=== PATIENT | female | born 1945 | race Two or more races ===

== ENCOUNTER 2018-11-20 06:07 | Inpatient (IN) | payer MEDICARE, OTHER ==
[~2018-11-20] VITALS: Ht 165.1 cm; Wt 75.4 kg
[2018-11-20] MEDS ORDERED: ANAS1TAB PO (06:46)
[2018-11-20] MEDS ORDERED: ESCITALOPRAM OX10 MG PO (06:46)
[2018-11-20] MEDS ORDERED: ARIP2TAB35 PO (06:46)
[2018-11-20] MEDS ORDERED: OLAN5TAB9 PO (06:46)
[2018-11-20] MEDS ORDERED: TRAZ-120 PO (06:46)
[2018-11-20] MEDS ORDERED: LAMO200T3 PO (06:46)
[2018-11-20] MEDS ORDERED: METO50TA29 PO (06:46)
[2018-11-20] MEDS ORDERED: LEVE500T56 PO (06:46)
--- NOTE | 2018-11-20 08:20 | NUR ---
Admission Note with Justification for Admission to [facility] Patient admitted to [facility] for protective oversight for emergency stabilization of acute psychiatric crisis. Pt admitted from: Hospital ER/Home Mode of arrival: EMS Accompanied By: Secure Transport Precipitating behaviors that initiated intake and admission: Hallucinating, delusions. Description of failure of out patient attempts at stabilization in previous setting list behavior and medication trials: Behaviors and assessment findings upon admission: Recieved Versed in ambulance. Pt drowsy and very happy. Plan: Admit for protective oversight for adjustment and stabilization of medications, behaviors and mood. Intense treatment regimen including groups, medication adjustments, therapy, consistent regimen for ADL's, self care, and sleep hygiene. Daily monitoring by Inpatient staff, Psychiatry, and Medical Physician.
[2018-11-20 08:57] VITALS: BP 115/60
[2018-11-20] MEDS: NICOTINE 14MG PATCH. TD SCH (11:00)
[2018-11-20] MEDS ORDERED: METHYL SALICYLATE/MENTHOL TOPICAL OINTMENT 57GM TUBE. TP PRN (11:15)
[2018-11-20] MEDS ORDERED: MAG HYDROX/AL HYDROX/SIMETH 30 ML ORAL.SUSP PO PRN (11:15)
--- NOTE | 2018-11-20 13:40 | NUR ---
PSYCHOSOCIAL ASSESSMENT ADMISSION DATE: 11/20/18 CONTACT INFORMATION: DPOA/Guardian Contact Name: Sabina Palumbo Contact Address: [facility] Contact Phone #: [phone] ETHNIC ORIGIN: REASONS FOR ADMISSION: Delusions Hallucinations Poor impulse control Sig. Change Sleep ADDITIONAL ADMISSION COMMENTS: According to the intake, pt cannot sit still/restless, has major cognitive decline, visual and auditory hallucinations, nervous movements, speaks to who is not present REASON FOR ADMISSION IN PATIENT/FAMILY'S OWN WORDS: Pt has had exhibited a decrease in cognition since moved to an [place]. PATIENT/FAMILY EXPECTATIONS FOR ADMISSION: Medication and behavioral management LIVING SITUATION: Patient lives with: [facility] Other living arrangements: currently at home but on facility waiting list Contact Name: [facility] Contact Address: [address] [place] [address] Contact Phone #: Contact Fax #: FAMILY RELATIONS: Marital Status: # of Marriages: 2 # of Children: 1 [facility] Family Support: Cooperative Involved in DC Planning Additional Comments r/t Family: Pt was first at the age of 17 to her of 3 years. The 2 , with no children, due to her cheating. Pt after a couple years met and her current Maxim Palumbo and had 1 daughter Sabina. Pt and her have been for 47 years. SIGNIFICANT PSYCHIATRIC/MEDICAL HISTORY: Psychiatric/Treatment History: This is pt first inpt psych stay at [facility]. According to pt dtr, she has not had any previous psych stays. Pt did however, see a neurologist in [place] roughly 5 months ago and was dx NCD, moderate. Pertinent Family History: Pt Father was believe to have Parkinson's but was not dx (e.g. he had horrible shakes and eventually poor memory trouble). Pt mother was dx with Dementia. Otherwise, the rest of the family suffered from physical ailments. HISTORICAL DATA: Childhood Environment: [place] Supportive Childhood Environment Additional Comments: According to pt dtr, pt grew up in a loving household. Pt dtr reports that her grandparents were fantastic, poor but hard working people. Pt had 1 sister who was 5 years older and last year from breast cancer. Pt dtr felt that sibling rivalry was very well felt with them to the point where there seemed to be some underlying resentment, even if they did talk to her sister on a daily basis at almost 3x a day. 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 service: N Spiritism background: Buddhist Sexual orientation: Heterosexual Educational Level: High School Diploma; graduated 12th grade Past/Present Interests/Hobbies: "to be honest, I'm not sure if my Mom has any" Financial support/resources: Skilled Nursing/Pension Social Security Monthly income: Person handling finances: Pt dtr is financial and medical DPOA Do you have a history of legal problems: N Cultural considerations: None SOCIAL RELATIONSHIPS-CURRENT/PAST: Psychiatrist: None PCP: Dr. German Casanova Counselor/Therapist: None Veterans' Administration: None Support Group: None Toolsmith/Assistant Professor Of English: None Other relationships: None STRENGTHS & WEAKNESSES: Patient's strengths: Good family support Approachable Other patient strengths: Patient's weaknesses: Impulsive Other Other patient weaknesses: Poor relationship with spouse PRELIMINARY PLAN OF TREATMENT: Preliminary plan: Dec. Hallucination/Delus Promote Coping Skill Medication Stabilization Monitor Med Effects Other preliminary treatment comments: DISCHARGE PLANNING: Discharge planning/disposition: Other Additional discharge needs identified: Pt is on the waiting list at [facility]. ADDITIONAL INFORMATION: Other Pertinent Data: SW completed pt PSA with dtr/DPOA Gypsy. Pt dtr informed SW that it would probably be better if pt communication with her would be non-existent. Pt tends to be a trigger for pt. Pt has a long hx of mental health stays and has formed a weird co-dependency. Pt has a dx of Schizoaffective D/O and Bipolar D/O; pt spent some 2 years at [facility] and other episodes of being in and out of wards. Although the couple has stayed , pt feels that her mother has resentment towards pt . Pt dtr reports that pt was doing perfectly fine in September, as in fully functioning (e.g. driving, cooking, cleaning). Pt dtr mentioned that it has been a long time since pt has been happy and hopes that this stay will be able to even her out as much as possible with a transfer to [facility] once she is stable.
[2018-11-20 14:59] LABS: THYROID STIM HORMONE (TSH) 2.093 uIU/mL (0.358-3.740)
--- NOTE | 2018-11-20 15:53 | RAD ---
EXAM: CT Head without IV contrast CLINICAL HISTORY: Mental status change COMPARISON: None. TECHNIQUE: Routine CT of the head without contrast. Soft tissues and bone windows were reviewed. PQRS compliance statement - One or more of the following individualized dose reduction techniques were utilized for this study: 1. Automated exposure control 2. Adjustment of the mA and/or kV according to patient size 3. Use of iterative reconstruction technique FINDINGS: Within the limitations of streak artifact, particularly in the posterior fossa: Low-attenuation is seen within the bilateral thalami as follows the left caudate, nonspecific but may be sequela of hypoxic ischemic change, subacute or chronic. MRI would provide additional details as clinically indicated. There is no evidence of hemorrhage, mass or extra-axial fluid collection. Diffuse subcortical, periventricular deep white matter hypoattenuation may be seen with chronic small vessel disease. There is no mass effect or shift of the intracranial structures. The ventricles, basilar cisterns and cortical sulci are normal in size and configuration for the patients stated age. The cerebellum and brainstem are unremarkable. The calvarium demonstrates no evidence of fracture or focal lesion. Patchy opacification of the sphenoid sinus is likely sinusitis. Mastoid air cells are clear. Vascular calcifications are seen. The visualized portions of the orbits are normal. IMPRESSION: 1. Low-attenuation is seen within the bilateral thalami as follows the left caudate, nonspecific but may be sequela of hypoxic ischemic change, subacute or chronic. MRI would provide additional details as clinically indicated. Compression was discussed with patient's nurse Thi at 3:48 PM 11/20/2018. Electronically signed by: Kyle Carlson MD (11/20/2018 3:50 PM) [facility]
[2018-11-20 15:54] VITALS: BP 120/75
--- NOTE | 2018-11-20 18:33 | NUR ---
Pt up for lunch. In pleasant spirits. After lunch pt became agitated and resistive. Pt assisted to bed. took short nap. Pt up for supper. In pleasant spirits. Dr Hernandez here to see pt. New order for Mirapex TID. Dtr called today. Stated pt had hx of grand mal seizures and pt was seen at the [facility] for eval. Dtr stated they never found a cause but was placed on antiseizure meds. Pt has not had a recent seizure. Pt also sees a Neurologist in [place]. Was dx with early dementia and Parkinson's When pt was started on sinemet and exelon, pt displayed sign of psychosis. Meds were dcd. Unable to find a recent CT head. Obtained. Abn results called to dr Solis and order to consult Dr Hernandez.
--- NOTE | 2018-11-20 19:31 | EKG ---
[address] [address] Test Date: 2018-11-20 Test Time: 16:24:33 Pat Name: AGUSTO TOSCANO Department: Room: [address] [place] [address] Gender: F Statistician Applied: : 1945 Requested By: JOE MILLARD Order Number: [id number] Reading MD: Myles Xavier Measurements Intervals Empire Rate: 83 P: SC: QRS: -67 QRSD: 132 T: -6 QT: 412 QTc: 485 Interpretive Statements SINUS RHYTHM ATRIAL PREMATURE COMPLEXES ABNORMAL LEFT AXIS DEVIATION LEFT ANTERIOR FASCICULAR BLOCK RIGHT BUNDLE BRANCH BLOCK BIFASCICULAR BLOCK ABNORMAL ECG RI6.02 No previous ECG available for comparison Electronically Signed On 12-07-2018 14:34:06 CDT by Myles Xavier
--- NOTE | 2018-11-20 21:00 | NUR ---
Patient is in her room on assumption of care. Pleasant demeanor. Calm, cooperative and compliant with medications and assessments. No agitation. No delusions or hallucinations noted. Denies pain, denies SI/HI.
[2018-11-20 21:19] LABS: THYROXINE 6.3 ug/dL (4.5-12.0)
[2018-11-20] MEDS: ARIPiprazole 2 MG TABLET PO SCH (21:54)
[2018-11-20] MEDS: traZODone 50 MG TABLET. PO SCH (21:54)
[2018-11-20] MEDS: PRAMIPEXOLE 0.5 MG TABLET. PO SCH (21:54)
[2018-11-20] MEDS: levETIRAcetam 500 MG TABLET PO SCH (21:55)
[2018-11-20] MEDS: lamoTRIgine 100 MG TABLET. PO SCH (21:55)
[2018-11-20] MEDS: OLANZapine 5 MG TABLET PO SCH (21:57)
--- NOTE | 2018-11-20 22:05 | PDOC ---
Exam Note: Otto Note: Please also refer to the separate dictated note~for this date of service dictated separately. Discussed the patient with Nursing staff reviewed the chart.~Reviewed interim history and current functioning. Reviewed vital signs,~Labs/ Radiology~and current medications noted below. Continue current treatment with the changes noted in the dictated addendum note Assessment: Vital Signs/I&O: Vital Signs Date Time Temp Pulse Resp B/P (MAP) Pulse Ox O2 Delivery O2 Flow Rate FiO2 11/20/18 15:54 97.2 112 20 120/75 (90) 96 11/20/18 08:57 Room Air Labs: Laboratory Tests Test 11/20/18 11:20 Magnesium Level 1.9 mg/dL (1.8-2.4) Iron Level 28 ug/dL (50-170) L Total Iron Binding Capacity 241 ug/dL (250-450) L Iron Saturation 12 % (15-34) L Triglycerides Level 118 mg/dL (0-150) Cholesterol Level 204 mg/dL (0-200) H LDL Cholesterol, Calculated 151 mg/dL (0-100) H VLDL Cholesterol, Calculated 23 mg/dL (0-40) Non-HDL Cholesterol Calculated 174 mg/dL (0-129) H HDL Cholesterol 30 mg/dL (40-60) L Cholesterol/HDL Ratio 6.0 25-Hydroxy Vitamin D Total 21.6 ng/mL (30-100) L Thyroid Stimulating Hormone (TSH) 2.093 uIU/mL (0.358-3.740) Thyroxine (T4) 6.3 ug/dL (4.5-12.0) Total Triiodothyronine (TT3) 105 ng/dL (71-180) Treponema pallidum Antibody Nonreactive (Nonreactive) Current Medications: Meds: Current Medications Medications (Trade) Dose Ordered Sig/Lidia Route PRN Reason Start Time Stop Time Status Last Admin Dose Admin Aripiprazole (Abilify) 2 mg HS PO 11/20/18 21:00 11/20/18 21:55 Levetiracetam (Keppra) 500 mg BID PO 11/20/18 21:00 11/20/18 21:55 Olanzapine (ZyPREXA) 5 mg HS PO 11/20/18 21:00 11/20/18 21:57 Trazodone HCl (Desyrel) 50 mg HS PO 11/20/18 21:00 11/20/18 21:55 Lamotrigine (LaMICtal) 200 mg BID PO 11/20/18 21:00 11/20/18 21:55 Nicotine (Nicoderm Cq 14mg) 1 patch DAILY TD 11/20/18 11:00 11/20/18 13:07 Pramipexole Dihydrochloride (miraPEX) 0.5 mg [id number] PO 11/20/18 21:00 11/20/18 21:55 I have reviewed the current psychotropics carefully including drug interactions. Risk benefit ratio favors no change other than as noted in my dictated progress note. 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
[2018-11-21 01:07] LABS: HEMOGLOBIN A1C 5.6 % (4.8-5.6)
--- NOTE | 2018-11-21 03:37 | NUR ---
Patient attempted to get out of bed on her own to use the bathroom, and slid down to the floor, where she remained sitting. Staff assisted her up and into wheelchair. She began to yell that she could do it herself but made no attempt to get up. Staff was able to get her up and into wheelchair. She denies injury and pain, and no evidence of injury was noted. Wheeled into bathroom, where staff tried to assist her in standing and pivoting from the chair to the toilet. She became angry and started yelling that she could do it herself, but then would apologize. She appeared to be very frustrated. Once she was wheeled back to the bed, she was encouraged to take her time and pull herself up to a standing position. She was cooperative and was able to transfer herself from wheelchair to bed with moderate encouragement and assistance.
[2018-11-21 05:59] VITALS: BP 114/70
[2018-11-21] MEDS: lamoTRIgine 100 MG TABLET. PO SCH ×2 (07:35→20:09)
[2018-11-21] MEDS: PRAMIPEXOLE 0.5 MG TABLET. PO SCH ×3 (07:35→20:09)
[2018-11-21] MEDS: NICOTINE 14MG PATCH. TD SCH (07:35)
[2018-11-21] MEDS: levETIRAcetam 500 MG TABLET PO SCH ×2 (07:35→20:09)
[2018-11-21] MEDS: ANASTROZOLE 1 MG TABLET PO SCH (07:42)
[2018-11-21] MEDS: CITALOPRAM 20 MG TABLET. PO SCH (07:44)
[2018-11-21] MEDS: METOPROLOL SUCC 24HR ER 50 MG TAB.ER.24H. PO SCH (07:46)
[2018-11-21] MEDS: CHOLECALCIFEROL (VITAMIN D3) 50,000 UNIT CAPSULE PO SCH (13:00)
--- NOTE | 2018-11-21 13:53 | CONS ---
DATE OF CONSULTATION: 11/20/2018 NEUROLOGICAL CONSULTATION REFERRING PHYSICIAN: Dr. aDy. REASON FOR CONSULTATION: To manage Parkinson disease. HISTORY OF PRESENT ILLNESS: This is a 73-year-old, right-handed, female who was admitted today after she presented with chief complaints of agitation, confusion, difficulty sleeping, and anxiety. The patient probably has some kind of dementia; however, she is not a perfect historian. Neuro consult was requested because the patient has had history of Parkinson disease. She was evaluated a neurologist in [place] who started her on carbidopa/levodopa, but because of anaphylactic reaction and possible psychosis, the medicine was discontinued. Currently, the patient admitted to having tremor of the extremities and tendency to fall. She denies headaches, visual disturbances, nausea, vomiting, chest pain, shortness of breath or palpitation, dysarthria, dysphagia, chest pain, or shortness of breath. PAST MEDICAL HISTORY: Significant for COPD, seizure disorder probably due to subdural hematoma, hypertension, arthritis, and cancer of the areola of the left breast. PAST SURGICAL HISTORY: Significant for left breast lumpectomy, abdomen surgery, , and cholecystectomy. SOCIAL HISTORY: The patient is a smoker. She denies alcohol drinking or illicit drug use. FAMILY HISTORY: Not obtainable. CURRENT HOME MEDICATIONS: Anastrozole 1 mg daily, Abilify 2 mg daily, escitalopram 10 mg daily, lamotrigine 200 mg b.i.d. daily, levetiracetam or Keppra 500 mg twice daily, metoprolol XL 50 mg daily, and trazodone 50 mg at bedtime. ALLERGIES: CARBIDOPA/LEVODOPA AND RIVASTIGMINE. REVIEW OF SYSTEMS: A 10-point review of system was performed as mentioned above in history of present illness. PHYSICAL EXAMINATION: GENERAL: Well-developed, well-nourished female, not in acute distress. She weighs 78 kilos. VITAL SIGNS: Blood pressure 120/75, respiratory rate 20, pulse is 112 and regular, oxygen saturation 96% on room air. HEENT: Normocephalic, atraumatic, otherwise unremarkable. NECK: Supple. Negative for carotid bruit, lymphadenopathy, or thyromegaly. LUNGS: Clear to A and P. CARDIOVASCULAR: Regular rhythm, normal S1 and S2. ABDOMEN: Soft. Bowel sounds positive. EXTREMITIES: Negative for cyanosis, clubbing, or edema. NEUROLOGICAL: Mental Status: The patient is alert, but disoriented to date and place. Speech is fluent. There is no language dysfunction. The patient recalls 0/3 after 1 and 3 minutes. Judgment and abstract thinking are poor. The patient denies hallucination or delusion. Cranial Nerves: Visual schaffer are full. The pupils are reactive to light and accommodation. The extraocular movements are intact. There is no nystagmus. There is no facial motor or sensory deficit. Hearing is intact bilaterally. The palates elevated symmetrically. Sternocleidomastoid muscles are powerful bilaterally. The patient shrugs her shoulders symmetrically, protrudes her tongue in the midline without fasciculation or atrophy. Motor Examination: No focal muscle bulk was seen. The patient had resting tremor of the upper extremity. The tone is normal. The strength is 5/5 throughout. Sensory examination revealed normal pinprick, light touch, vibratory, and position senses. Deep tendon reflexes were asymmetric and active without pathology responses. Gait: The patient uses a walker for ambulation. The patient had short-step gait. The stance is steady. LABORATORY DATA: Chemistry revealed magnesium 1.9, iron 28, TIBC is low at 241. Triglyceride normal, mild high cholesterol, but abnormal LDL at 151. DIAGNOSTIC DATA: EKG revealed evidence of right and left anterior bundle-branch block. IMPRESSION: 1. History of Parkinson's disease, currently the patient demonstrates resting tremor of the upper extremities with abnormal gait. 2. Multiple medical problems to include hypertension, hyperlipidemia, history of seizure, tobacco use, history of subdural hematoma, chronic obstructive pulmonary disease, and arthritis. 3. Multiple psychiatric problems to include depressions, anxiety, probably history of psychosis, and dementia. RECOMMENDATIONS: 1. We will start the patient on ropinirole 0.5 mg t.i.d. for the parkinsonian tremor. 2. Continue with current medical and psychiatric care. M Komal FERNANDES MD DR: JUAN ALBERTO/raina JOB#: [id number] / [id number]
[2018-11-21 16:04] VITALS: BP 120/72
--- NOTE | 2018-11-21 18:01 | NUR ---
Pt up for meals in [place]. Was tearful at breakfast. Wanted to go back to bed. Staff explained purpose of meals and group participation. Pt irritable in afternoon. Wanted to get car so she could go home. Attempted to redirect. Pt agreed to talk with friend on phone. Pt better after call and participated with physical therapy with encouragement. Pt seen by Dr Hernandez. Dr Solis to see. Consult placed for Dr Rocha for abnormal EKG, LM with answering service. Pt placed on statin for HLPD.
--- NOTE | 2018-11-21 19:11 | NUR ---
Dr Rocha returned call. Will see pt tomorrow.
[2018-11-21] MEDS: OLANZapine 5 MG TABLET PO SCH (20:08)
[2018-11-21] MEDS: ARIPiprazole 2 MG TABLET PO SCH (20:08)
[2018-11-21] MEDS: traZODone 50 MG TABLET. PO SCH (20:08)
[2018-11-21] MEDS: ATORVASTATIN CALCIUM 10 MG TABLET. PO SCH (20:11)
[2018-11-21] MEDS: MIRTAZAPINE 7.5 MG TABLET. PO SCH (20:31)
--- NOTE | 2018-11-21 21:55 | HP ---
ADMIT DATE: 11/20/2018 ADMISSION HISTORY AND EVALUATION This late entry 11/20/2018 covers elements not covered in my initial 11/20/2018. The patient was seen individually evening of 11/20/2018. Discussed the patient with nursing staff, reviewed the chart, previously discussed with Michell Ramirez, receiving coordinator. IDENTIFYING DATA: The patient is a 73-year-old female, referred to us from [facility] by Dr. Casanova, her primary care physician, on account of her significant cognitive decline, restlessness, having visual and auditory hallucinations, increased anxiety, nervous movements, marked insomnia, speaking to her when he is not there, worsening disorientation and confusion. This is within the context of her Parkinson's disease, dementia, epilepsy and history of subdural hematoma. The patient has had marked insomnia. Staff at the facility felt she was disoriented enough to endanger herself, had failed outpatient psychiatric interventions resulting in this referral. CHIEF COMPLAINT: "Maybe I am getting more confused." HISTORY OF PRESENT ILLNESS: The patient has a history of dementia secondary to Parkinson's versus Lewy body, Alzheimer's, vascular. She has been residing at the above facility for some time and was awaiting transition to the assisted living when her cognition, confusion, hallucinations, agitation seemed to worsen. She was sent to the [facility], evaluated there medically, found to be medically stable and then referred to us for inpatient psychiatric stabilization, admitted by Ryne Palumbo, her daughter, who is her power of assistant attorney general. The patient has had some sleep disturbance, appetite disturbance. There is no clear history of bipolar disorder or active suicidal or homicidal ideation. PAST PSYCHIATRIC HISTORY: As above. MEDICAL HISTORY: Positive for Parkinson's disease, arthritis, COPD, seizure disorder, hyperlipidemia, hypertension, history of CA breast, history of subdural hematoma, history of abdominal surgery, left breast lumpectomy, , cholecystectomy. ALLERGIES: CARBIDOPA/LEVODOPA, RIVASTIGMINE. CODE STATUS: She is a full code. Ambulates ad ethel or with walker. CURRENT PSYCHOTROPICS: Zyprexa 5 mg at bedtime, trazodone 50 mg at bedtime, Abilify 2 mg at bedtime, Lexapro 10 mg daily, Lamictal 200 mg b.i.d. FAMILY HISTORY: Noncontributory. SOCIAL HISTORY: No history of alcohol, drug abuse, physical, sexual or elder abuse. She is not known to be a perpetrator. REACTION TO HOSPITALIZATION: The patient accepting of it. ASSETS: Supportive living in supportive family. CT of the head shows low attenuation within bilateral thalami, left caudate nonspecific, but may be sequelae of hypoxic ischemic change, subacute or chronic with the suggestion of considering MRI. We will defer to Dr. Solis/Dr. Hernandez for Neurology consult. There is no evidence of hemorrhage and there was diffuse subcortical periventricular deep white matter hypoattenuation with chronic small vessel ischemic disease, no mass effects. MENTAL STATUS EXAMINATION: The patient was seen individually evening of 11/20/2018. She is oriented to herself. Insight, judgment, recent and remote memory, attention, concentration, fund of knowledge poor, consistent with her diagnosis. She felt the year was 1994. Unaware of the name of the president, short term memory is impaired. Language function intact. IMPRESSION: Major neurocognitive disorder, multifactorial, possibly secondary to Parkinson's versus Lewy body versus vascular with delusion, depression, behavioral disturbance, anxiety disorder, unspecified; impulse control disorder, unspecified. Rest as above. PLAN: Admit to geropsychiatry unit from [facility]. I will see the patient daily individually from a psychiatric standpoint. Medical followup per Dr. Solis. Continue the patient on her current psychotropics, but we will try and avoid using 2 antipsychotics in combination. Neurology consult with Dr. Hernandez for her seizure disorder. We will make further changes in her psychotropics post baseline assessment. MAN Santiago MILLARD MD DR: COURTNEY/raina JOB#: [id number] / [id number]
--- NOTE | 2018-11-21 22:45 | PDOC ---
Exam Note: Otto Note: Please also refer to the separate dictated note~for this date of service dictated separately.~Patient seen individually. Discussed the patient with Nursing staff reviewed the chart.~Reviewed interim history and current functioning. Reviewed vital signs,~Labs/ Radiology~and current medications noted below. Continue current treatment with the changes noted in the dictated addendum note Assessment: Vital Signs/I&O: Vital Signs Date Time Temp Pulse Resp B/P (MAP) Pulse Ox O2 Delivery O2 Flow Rate FiO2 11/21/18 16:04 97.8 80 18 120/72 (88) 98 11/20/18 08:57 Room Air I & O 11/20/18 11/20/18 11/21/18 15:00 23:00 07:00 Intake Total 360 ml 360 ml Balance 360 ml 360 ml Current Medications: Meds: Current Medications Medications (Trade) Dose Ordered Sig/Lidia Route PRN Reason Start Time Stop Time Status Last Admin Dose Admin Anastrozole (Arimidex) 1 mg DAILY PO 11/21/18 09:00 11/21/18 07:46 Metoprolol Succinate (Toprol Xl) 50 mg DAILY PO 11/21/18 09:00 11/21/18 07:46 Citalopram Hydrobromide (CeleXA) 20 mg DAILY PO 11/21/18 09:00 11/21/18 07:46 Vitamin D (Vitamin D3) 50,000 unit WEEKLY PO 11/21/18 13:00 11/21/18 14:48 Atorvastatin Calcium (Lipitor) 10 mg QHS PO 11/21/18 21:00 11/21/18 20:11 Mirtazapine (Remeron) 7.5 mg QHS PO 11/21/18 21:00 11/21/18 20:31 I have reviewed the current psychotropics carefully including drug interactions. Risk benefit ratio favors no change other than as noted in my dictated progress note. 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
[2018-11-22 00:25] VITALS: BP 151/58
--- NOTE | 2018-11-22 01:27 | NUR ---
Nursing note: At 0010 patient bed alarm sounded and when staff went to her room she was found lying on the floor. She had tried to get up to go to the bathroom and climbed over the bed rail causing herself to fall. She was lying on her left side with her head on the floor. Patient was irritable and yelling and cussing at staff to leave her alone while we were attempting to get her vitals. Vitals are as follows: BP 151/58, HR 109, Resp 22, O2 95% ORA.There was no wounds found but patients left ear was red and she complained of her head hurting and throbbing. Dr. Solis was called and ordered a CT of her head.
--- NOTE | 2018-11-22 01:55 | RAD ---
CT HEAD WO CONTRAST Date: 11/22/2018 1:00 AM Clinical Indication: Fall, headache Comparison: 11/20/2018. Technique: 5 mm axial tomographic images were obtained of the head without contrast. These were viewed on brain and bone windows. One or more of the following dose reduction techniques were utilized: Automated exposure control (AEC), Adjustment of mA and/or kV according to patient size, Use of iterative reconstruction technique such as ASiR, CT scan done according to ALARA and image gently/image wisely Findings: Mild generalized cerebral and cerebellar volume loss. Moderate nonspecific periventricular hypoattenuation, most commonly seen with chronic small vessel ischemic disease. Calcified atherosclerosis of the bilateral cavernous and paraclinoid internal carotid arteries and intracranial vertebral arteries. Unchanged of hypoattenuation in the thalami and left caudate. No intra- or extra-axial mass or fluid collection. No acute hemorrhage. The ventricles are normal in size, shape, and morphology. The subarachnoid cisterns are patent. Mild paranasal sinus disease. The visualized portions of the orbits and globes are normal. The mastoid air cells are clear. The scouts topogram shows no lytic lesion or fracture. Impression: No acute hemorrhage. Unchanged hypoattenuation in the thalami and left caudate. Mild cerebral volume loss. Moderate chronic small vessel ischemic disease. Electronically signed by: Ke Bill MD (11/22/2018 1:52 AM) [facility]
--- NOTE | 2018-11-22 04:17 | NUR ---
Nursing note: Spoke to in beginning of shift before medication pass. Let him know what nightshift had reported on her. Mentioned he will follow up today. Patient was compliant in the beginning of the shift. Patient took all medications whole and was talking about the movie that was on in the day room at that time. Patient went to bed shortly after medication pass. Patient then woke up and bed alarm began to go off and around 0010 patient was found on the floor by CNAs in attempt to go to the bathroom. Vitals taken and patient was assessed. Very combative, yelling out, and delusional. Patient was visibly in some pain as well. After patient went to the bathroom, she was put back in bed and voiced she was having some headache and throbbing but did not want to take her PRN Tylenol. Dr Solis was contacted. CT was ordered. Verge completed. burning supervisor made aware. Patient went down for CT around 0100. Afterwards, patient was brought back upstairs and put in bed. Vitals were taken once more. Patient was asked again at this time if she would like some medication for pain but she again said no and fell back to sleep. Addendum: 11/22/18 at 0624 by LITZY LEWIS RN called this AM. Left voicemail informing him we have some updates on patient and to call back when he gets a chance.
[2018-11-22 05:51] VITALS: BP 113/68
[2018-11-22] MEDS: levETIRAcetam 500 MG TABLET PO SCH ×2 (07:34→19:35)
[2018-11-22] MEDS: NICOTINE 14MG PATCH. TD SCH (07:34)
[2018-11-22] MEDS: PRAMIPEXOLE 0.5 MG TABLET. PO SCH ×3 (07:34→19:36)
[2018-11-22] MEDS: CITALOPRAM 20 MG TABLET. PO SCH (07:34)
[2018-11-22] MEDS: lamoTRIgine 100 MG TABLET. PO SCH ×2 (07:34→19:36)
[2018-11-22] MEDS: METOPROLOL SUCC 24HR ER 50 MG TAB.ER.24H. PO SCH (07:35)
[2018-11-22] MEDS: ANASTROZOLE 1 MG TABLET PO SCH (07:56)
--- NOTE | 2018-11-22 09:54 | CONS ---
DATE OF CONSULTATION: 11/21/2018 REASON FOR CONSULTATION: Medical management. HISTORY OF PRESENT ILLNESS: The patient is a 73-year-old female patient, who was admitted to [facility] and with major cognitive decline. The patient has been restless, has visual and auditory hallucination, increased anxiety, nervousness, insomnia, speaking with her when he is not there, disoriented and confused, all this in a background of delirium and was admitted to this facility for inpatient psychiatric stabilization. PAST MEDICAL HISTORY: Significant for Parkinson's disease, COPD, generalized osteoarthritis, epilepsy, hyperlipidemia, hypertension, history of breast cancer and history of subdural hematoma. PAST SURGICAL HISTORY: Significant for left breast lumpectomy, , cholecystectomy. PAST PSYCHIATRIC HISTORY: Significant for dementia with major cognitive decline. ALLERGIES: She is allergic to CARBIDOPA/LEVODOPA as well as EXELON PATCH. MEDICATIONS: She is currently on following medications: She is on anastrozole 1 mg daily, metoprolol succinate 50 mg daily, lamotrigine 200 mg twice a day, levetiracetam 500 mg twice a day, escitalopram oxalate 10 mg once a day, trazodone 50 mg at bedtime, aripiprazole 10 mg at bedtime and olanzapine 5 mg at bedtime. FAMILY HISTORY: Noncontributory. SOCIAL HISTORY: She is and lives with her . She has one daughter who lives in [facility]. She continued to smoke half a pack a day, does not drink alcohol, any recreational drugs. REVIEW OF SYSTEMS: As per history of present illness. PHYSICAL EXAMINATION GENERAL: When I examined her this afternoon, she was sitting comfortably in her chair, eating her breakfast, in no apparent distress. There was no pallor, jaundice, cyanosis or thyromegaly. No jugular venous distention. No limb edema. VITAL SIGNS: Her heart rate was 107, blood pressure 114/70, temperature was 98.1, respiratory rate was 18 and oxygen saturation was 96% on room air. HEAD, EYES, EARS, NOSE AND THROAT: Normocephalic, atraumatic. NECK: Supple. HEART: Showed normal first and second heart sounds. No gallop or murmur. CHEST: Clear to auscultation. No crepitation or rhonchi. ABDOMEN: Distended, soft, nontender. No guarding or rigidity. No organomegaly. All hernial orifice intact. Bowel sounds normal. NEUROLOGIC: She was awake, alert, responding appropriately, although she is somewhat confused and disoriented; however, all cranial nerves intact. EXTREMITIES: She moves extremities without difficulty, although she is mostly wheelchair bound. LABORATORY DATA: Her lab work showed that her white cell count to be 4100, hemoglobin was 15, hematocrit 44, MCV 94 and platelet count 215,000. Serum sodium was 139, potassium 4, chloride 105, bicarbonate 26, anion gap of 8, BUN 13, calcium was 8.7, albumin was 3.7 and total protein was 5.9. Her serum creatinine is down to 0.55 mg/dL, estimated GFR was more than 59 mL per minute. Total bilirubin, AST, ALT, alkaline phosphatase were all within normal limit. Her serum triglycerides 118, total cholesterol was ____, LDL cholesterol 151, VLDL was 23, non-HDL was 174, HDL cholesterol was 30 and the ratio was ____. Her TSH was normal. Total T4 and total T3 are within normal range. Her 25-hydroxy vitamin D is low at 21.6. Her treponema pallidum antibodies were nonreactive. She did have a CT scan of the head, which basically showed the low attenuation seen within the bilateral thalami ____ coated-nucleus nonspecific, but may be sequelae of hypoxic ischemic changes and subacute or chronic. Her EKG showed that she might be in atrial fibrillation with right bundle-branch block. IMPRESSION: In summary, this is a 73-year-old female patient who was transferred from [facility] on account of the major cognitive decline, restlessness, visual and auditory hallucination, increased anxiety, insomnia, speaking with her who is not there. She is disoriented and confused. Medically, she is known to have Parkinson disease, chronic obstructive pulmonary disease, epilepsy, hyperlipidemia, hypertension, history of breast cancer and history of subdural hematoma. Her lab work showed that she has elevated cholesterol. EKG showed that she has probably atrial fibrillation with questionable atrial fibrillation with right bundle-branch block and she has also hyperlipidemia with LDL cholesterol high at 151. She has also vitamin D deficiency. PLAN: My plan is to replenish her vitamin D. Given that she has finding on her CT scan of low attenuation seen within the bilateral thalami and the possibly irregular beat, I would consult the cardiology for evaluation and to decide whether the patient needs to be anticoagulated. Thank you, Dr. Day, for allowing me to participate in the care of this patient. ADITI EASON MD DR: RIVER/raina JOB#: [id number] / [id number]
[2018-11-22 16:09] VITALS: BP 106/64
--- NOTE | 2018-11-22 18:19 | NUR ---
Pt has been up in wc for meals and out to group. Has been pleasantly confused. Compliant with meds and cares thus far.
[2018-11-22] MEDS: traZODone 50 MG TABLET. PO SCH (19:35)
[2018-11-22] MEDS: ATORVASTATIN CALCIUM 10 MG TABLET. PO SCH (19:36)
[2018-11-22] MEDS: MIRTAZAPINE 7.5 MG TABLET. PO SCH (19:36)
--- NOTE | 2018-11-22 22:28 | PDOC ---
Exam Note: Otto Note: Please also refer to the separate dictated note~for this date of service dictated separately.~Patient seen individually. Discussed the patient with Nursing staff reviewed the chart.~Reviewed interim history and current functioning. Reviewed vital signs,~Labs/ Radiology~and current medications noted below. Continue current treatment with the changes noted in the dictated addendum note Assessment: Vital Signs/I&O: Vital Signs Date Time Temp Pulse Resp B/P (MAP) Pulse Ox O2 Delivery O2 Flow Rate FiO2 11/22/18 16:09 98.6 69 18 106/64 (78) 98 11/20/18 08:57 Room Air I & O 11/21/18 11/21/18 11/22/18 15:00 23:00 07:00 Intake Total 840 ml 240 ml 240 ml Balance 840 ml 240 ml 240 ml Current Medications: Meds: Current Medications Medications (Trade) Dose Ordered Sig/Lidia Route PRN Reason Start Time Stop Time Status Last Admin Dose Admin Olanzapine (ZyPREXA ZYDIS) 2.5 mg PRN Q2HR PRN PO PSYCHOSIS 11/22/18 19:45 11/22/18 19:57 I have reviewed the current psychotropics carefully including drug interactions. Risk benefit ratio favors no change other than as noted in my dictated progress note. 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
--- NOTE | 2018-11-22 23:26 | PN ---
DATE: 11/21/2018 PSYCHIATRIC PROGRESS NOTE This late entry, 11/21/2018 covers elements not covered in my initial note. SUBJECTIVE: I met with the patient evening of 11/21/2018. The patient slept 4 hours previous night. EKG shows right bundle branch block. CT head is abnormal, will defer to Dr. Hernandez, Neurology consult. Reviewed her history that when she was brought by ambulance. She was agitated to a point, which she received 4 mg Versed in the ambulance. She has been started on Mirapex for her Parkinson's, history of grand mal seizures. REVIEW OF SYSTEMS: Ambulation impaired, in wheelchair. No CV, , pulmonary, eye system symptoms on review. Reliability poor. MENTAL STATUS EXAM: Oriented to herself. Insight, judgment, recent and remote memory, attention, concentration, fund of knowledge poor, consistent with her diagnoses. IMPRESSION: Major neurocognitive disorder, multifactorial, possibly Lewy body with delusion, depression, behavioral disturbance, major neurocognitive disorder, Alzheimer, vascular with delusion, depression, behavioral disturbance. Rest unchanged from initial note. PLAN: We will start Remeron 7.5 mg at bedtime, stop the Abilify 2 mg at bedtime. Consult Dr. Hernandez, Neurology. Maintain Lamictal, scheduled Zyprexa 5 mg at bedtime, Lexapro 10 mg a day for now. MAN Santiago MILLARD MD DR: COURTNEY/raina JOB#: [id number] / [id number]
--- NOTE | 2018-11-23 04:42 | NUR ---
Nsg Note: Patient was medication compliant. Upon arrival to start of shift, patient was yelling the F word and throwing things around. She was given PRN Zyprexa with her other medications and she has slept throughout the night.
[2018-11-23 05:55] VITALS: BP 146/82
[2018-11-23] MEDS: PRAMIPEXOLE 0.5 MG TABLET. PO SCH ×3 (08:06→19:11)
[2018-11-23] MEDS: levETIRAcetam 500 MG TABLET PO SCH ×2 (08:06→19:12)
[2018-11-23] MEDS: CITALOPRAM 20 MG TABLET. PO SCH (08:07)
[2018-11-23] MEDS: METOPROLOL SUCC 24HR ER 50 MG TAB.ER.24H. PO SCH (08:07)
[2018-11-23] MEDS: ANASTROZOLE 1 MG TABLET PO SCH (08:07)
[2018-11-23] MEDS: lamoTRIgine 100 MG TABLET. PO SCH ×2 (08:08→19:11)
[2018-11-23] MEDS: NICOTINE 14MG PATCH. TD SCH (08:08)
[2018-11-23 15:37] VITALS: BP 107/74
--- NOTE | 2018-11-23 15:47 | NUR ---
Pt calm, compliant with meds and assessment in the morning. Pt became agitated and combative after lunch, cursing and calling staff names.
--- NOTE | 2018-11-23 16:00 | NUR ---
ACTIVITY THERAPY ASSESSMENT Completed based on observation and interview. Pt. was eating a snack in the day room, while sitting in a wheelchair with a staff ensuring her wheelchair stay put, due to safety reasons. Pt. was reportedly restless earlier and resistive with staff's redirection. At this time, Pt. was fidgeting with her snack and was agreeable for IMPLEMENTATION ADVISOR to ask her questions; however, she was not able to give very much information. It appeared that Pt. did better with yes/no this/that questions. With that, Pt. said she liked TV, arts/crafts, said "I love to color." She did not like [employer], not interest in cards, reads "somewhat." At times, Pt. talked towards a peer and addressed them as "Deep." She sat quietly after answering the questions with one or a few words. While on the unit, Pt. has followed along with exercises, attempted to socialize in a smaller group of women, and appears to be in a more pleasant and agreeable manor in the mornings as opposed to the afternoons. There are reports of Pt. having auditory and visual hallucinations and Pt. being restless and trying to get up unassisted. Initial goal aimed to increase engagement and socialization: Pt. will participate in at least five Activity Therapy groups per week.
--- NOTE | 2018-11-23 16:46 | NUR ---
Patient has been provided with Practical Counseling for tobacco cessation. It included a face to face interaction and the following was discussed: Recognizing danger situations, Developing coping skills,Basic cessation information. Will follow for discharge needs and discharge planning.
[2018-11-23] MEDS: traZODone 50 MG TABLET. PO SCH (19:10)
[2018-11-23] MEDS: MIRTAZAPINE 7.5 MG TABLET. PO SCH (19:11)
[2018-11-23] MEDS: ATORVASTATIN CALCIUM 10 MG TABLET. PO SCH (19:11)
--- NOTE | 2018-11-23 20:52 | NUR ---
Nursing note: Assumed care of pt in the day room. She was compliant with meds but not very interactive. When asked how her day had been she stated she was just going to sit there and wait until she could get out of here. She had no c/o pain, no agitation or hallucinations present at this time.
--- NOTE | 2018-11-23 21:48 | PDOC ---
Exam Note: Otto Note: Please also refer to the separate dictated note~for this date of service dictated separately.~Patient seen individually. Discussed the patient with Nursing staff reviewed the chart.~Reviewed interim history and current functioning. Reviewed vital signs,~Labs/ Radiology~and current medications noted below. Continue current treatment with the changes noted in the dictated addendum note Assessment: Vital Signs/I&O: Vital Signs Date Time Temp Pulse Resp B/P (MAP) Pulse Ox O2 Delivery O2 Flow Rate FiO2 11/23/18 15:37 98.3 76 20 107/74 (85) 100 11/20/18 08:57 Room Air I & O 11/22/18 11/22/18 11/23/18 15:00 23:00 07:00 Intake Total 480 ml 120 ml Balance 480 ml 120 ml Current Medications: I have reviewed the current psychotropics carefully including drug interactions. Risk benefit ratio favors no change other than as noted in my dictated progress note. 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
--- NOTE | 2018-11-24 01:22 | PN ---
DATE: 11/22/2018 PSYCHIATRIC PROGRESS NOTE This late entry, 11/22, covers elements not covered in my initial note. SUBJECTIVE: I met with the patient evening of 11/22. The patient slept 6-1/4 hours previous night. Overall, the patient remains confused. She fell out of bed at night. Repeat CT per Dr. Solis showed no acute changes. She gets paranoid, restless, anxious. We will add Zyprexa 2.5 mg q.2 hours p.r.n. psychosis, agitation, max 7.5 mg in 24 hours. REVIEW OF SYSTEMS: Ambulation impaired, in wheelchair. No CV, , pulmonary, eye, ENT system symptoms on review. MENTAL STATUS EXAM: Oriented to herself, situation at times. Speech is coherent, can be rapid, pressured, gets upset if orientation questions asked of her as I did in the evening of 11/22. Abstraction fair, computation impaired, language function intact, attention span short. Mood and affect remain somewhat anxious, labile. LABORATORY DATA: Reviewed. IMPRESSION: Major neurocognitive disorder; Alzheimer, vascular with delusion; depression; behavioral disturbance versus dementia; Lewy body with delusions, behavioral disturbance; status post subdural hematoma. Rest unchanged. PLAN: Continue psychotropics from initial note. Stop Zyprexa 5 mg at bedtime. She remains on Celexa 20 mg a day, Lamictal 200 mg b.i.d. for her seizure disorder, trazodone 50 mg at bedtime, Remeron 7.5 mg at bedtime; Abilify has been stopped. Adjust further as clinically indicated. JOE MILLARD MD DR: COURTNEY/raina JOB#: [id number] / [id number]
[2018-11-24 05:51] VITALS: BP 119/57
[2018-11-24] MEDS: NICOTINE 14MG PATCH. TD SCH (07:29)
[2018-11-24] MEDS: METOPROLOL SUCC 24HR ER 50 MG TAB.ER.24H. PO SCH (07:30)
[2018-11-24] MEDS: PRAMIPEXOLE 0.5 MG TABLET. PO SCH ×3 (07:30→19:17)
[2018-11-24] MEDS: levETIRAcetam 500 MG TABLET PO SCH ×2 (07:31→19:17)
[2018-11-24] MEDS: CITALOPRAM 20 MG TABLET. PO SCH (07:31)
[2018-11-24] MEDS: lamoTRIgine 100 MG TABLET. PO SCH ×2 (07:31→19:17)
[2018-11-24] MEDS: ANASTROZOLE 1 MG TABLET PO SCH (07:33)
--- NOTE | 2018-11-24 12:07 | NUR ---
Pt calm, compliant with meds and assessment in the morning. No behaviors noted so far this shift. Sitting in day room participating in group.
[2018-11-24 15:40] VITALS: BP 112/74
[2018-11-24] MEDS: traZODone 50 MG TABLET. PO SCH (19:17)
[2018-11-24] MEDS: ATORVASTATIN CALCIUM 10 MG TABLET. PO SCH (19:17)
--- NOTE | 2018-11-24 19:40 | NUR ---
Nursing note: Assumed care of pt in the day room. She is delusional and hallucinating. She sees her family and believes she is in her home, continually yelling out for different family. She is frequently tearful in between calling out. She is compliant with meds. No c/o pain.
[2018-11-24] MEDS: MIRTAZAPINE 15 MG TABLET PO SCH (20:03)
--- NOTE | 2018-11-24 21:50 | PDOC ---
Exam Note: Otto Note: Please also refer to the separate dictated note~for this date of service dictated separately.~Patient seen individually. Discussed the patient with Nursing staff reviewed the chart.~Reviewed interim history and current functioning. Reviewed vital signs,~Labs/ Radiology~and current medications noted below. Continue current treatment with the changes noted in the dictated addendum note Assessment: Vital Signs/I&O: Vital Signs Date Time Temp Pulse Resp B/P (MAP) Pulse Ox O2 Delivery O2 Flow Rate FiO2 11/24/18 15:40 97.8 91 20 112/74 (87) 98 11/24/18 05:51 Room Air I & O 11/23/18 11/23/18 11/24/18 15:00 23:00 07:00 Intake Total 600 ml 120 ml Balance 600 ml 120 ml Current Medications: Meds: Current Medications Medications (Trade) Dose Ordered Sig/Lidia Route PRN Reason Start Time Stop Time Status Last Admin Dose Admin Mirtazapine (Remeron) 15 mg QHS PO 11/24/18 21:00 11/24/18 20:03 I have reviewed the current psychotropics carefully including drug interactions. Risk benefit ratio favors no change other than as noted in my dictated progress note. 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
--- NOTE | 2018-11-25 03:13 | NUR ---
Nursing Note Pt yelling, and combative with staff, refuses to get up although states she needs to use the restroom. 2.5 mg zyprexa given.
--- NOTE | 2018-11-25 03:15 | PN ---
DATE: 11/23/2018 PSYCHIATRIC PROGRESS NOTE This late entry 11/23/2018 covers the elements not covered in my initial note. SUBJECTIVE: I met with the patient in the evening of 11/23/2018. For the most part, per nursing report, the patient did "great" in the morning. She slept 7-3/4 hours previous night. In the evening, she was getting more confused, anxious, restless, agitated, combative, cursing and name calling to nursing staff. REVIEW OF SYSTEMS: Ambulation impaired, in wheelchair. Other time, she ambulates with walker. No CV, , pulmonary, eye, ENT system symptoms on review. Reliability poor. MENTAL STATUS EXAM: Oriented to herself. Insight, judgment, recent and remote memory, attention, concentration and fund of knowledge are poor, consistent with her diagnosis mentioned in my initial note. PLAN: Zyprexa 5 mg at bedtime has been stopped. She remains on Celexa 20 mg a day, Lamictal 200 mg b.i.d., Remeron 7.5 mg at bedtime, trazodone 50 mg at bedtime p.r.n. and Zyprexa p.r.n. psychosis, agitation. We may use low dose Seroquel as a mood stabilizer, but I would like to avoid using an atypical, if we can avoid it. We will continue to assess this over the next 24-48 hours. JOE MILLARD MD DR: COURTNEY/raina JOB#: [id number] / [id number]
[2018-11-25 04:49] VITALS: BP 113/73
[2018-11-25] MEDS: METOPROLOL SUCC 24HR ER 50 MG TAB.ER.24H. PO SCH (07:19)
[2018-11-25] MEDS: NICOTINE 14MG PATCH. TD SCH (07:20)
[2018-11-25] MEDS: CITALOPRAM 20 MG TABLET. PO SCH (07:20)
[2018-11-25] MEDS: lamoTRIgine 100 MG TABLET. PO SCH ×2 (07:20→19:38)
[2018-11-25] MEDS: PRAMIPEXOLE 0.5 MG TABLET. PO SCH ×3 (07:20→19:37)
[2018-11-25] MEDS: levETIRAcetam 500 MG TABLET PO SCH ×2 (07:20→19:37)
[2018-11-25] MEDS: ANASTROZOLE 1 MG TABLET PO SCH (07:21)
[2018-11-25 13:28] LABS: BASO % 1 % (0-3); EOS # 0.3 x10^3/uL (0.0-0.7); EOS % 4 % (0-3); HEMATOCRIT 45.7 % (36.0-47.0); HEMOGLOBIN 15.5 g/dL (12.0-15.5); LYMPH # 1.2 x10^3/uL (1.0-4.8); LYMPH % 14 % (24-48); MEAN CORPUSCULAR HEMOGLOBIN 32 pg (25-35); MEAN CORPUSCULAR HGB CONC 34 g/dL (31-37); MEAN CORPUSCULAR VOLUME 95 fL (79-100); MONO # 0.6 x10^3/uL (0.0-1.1); MONO % 7 % (0-9); NEUT # 6.5 x10^3uL (1.8-7.7); NEUT % 75 % (31-73); PLATELET COUNT 436 x10^3/uL (140-400); RED BLOOD COUNT 4.84 x10^6/uL (3.50-5.40); RED CELL DISTRIBUTION WIDTH 13.3 % (11.5-14.5); WHITE BLOOD COUNT 8.7 x10^3/uL (4.0-11.0)
[2018-11-25 13:41] LABS: ALBUMIN/GLOBULIN RATIO 0.7 (1.0-1.7); CALCIUM 9.3 mg/dL (8.5-10.1); CREATININE 0.8 mg/dL (0.6-1.0); GFR 70.1; POTASSIUM 3.4 mmol/L (3.5-5.1); TOTAL BILIRUBIN 0.6 mg/dL (0.2-1.0); TOTAL PROTEIN 7.4 g/dL (6.4-8.2)
--- NOTE | 2018-11-25 14:18 | NUR ---
VIVIANA received an email from pt dtr to give her an update on pt and how she is doing. Pt dtr questioned in the email re: an estimated discharge date in which VIVIANA explained it would potentially be another 2 weeks. VIVIANA has been emailing pt dtr and encouraged her to ask nursing about medications as it is not SW expertise.
[2018-11-25 15:45] VITALS: BP 112/67
[2018-11-25 15:53] LABS: CLARITY,URINE CLEAR; COLOR,URINE AMBER
[2018-11-25 15:54] LABS: BACTERIA,URINE FEW /HPF (0-FEW); BILIRUBIN,URINE NEG (NEG); GLUCOSE,URINE NEG (NEG); HYALINE CASTS, URINE FEW /HPF; NITRITE,URINE NEG (NEG); SQUAMOUS EPITHELIAL CELL,UR OCC /LPF; UROBILINOGEN,URINE 0.2 mg/dL (0.2 mg/dL)
[2018-11-25] MEDS: ATORVASTATIN CALCIUM 10 MG TABLET. PO SCH (19:37)
[2018-11-25] MEDS: MIRTAZAPINE 15 MG TABLET PO SCH (19:37)
[2018-11-25] MEDS: traZODone 50 MG TABLET. PO SCH (19:37)
--- NOTE | 2018-11-25 21:10 | PDOC ---
Exam Note: Otto Note: Please also refer to the separate dictated note~for this date of service dictated separately.~Patient seen individually. Discussed the patient with Nursing staff reviewed the chart.~Reviewed interim history and current functioning. Reviewed vital signs,~Labs/ Radiology~and current medications noted below. Continue current treatment with the changes noted in the dictated addendum note Assessment: Vital Signs/I&O: Vital Signs Date Time Temp Pulse Resp B/P (MAP) Pulse Ox O2 Delivery O2 Flow Rate FiO2 11/25/18 15:45 97.7 68 16 112/67 (82) 97 11/24/18 05:51 Room Air I & O 11/24/18 11/24/18 11/25/18 14:59 22:59 06:59 Intake Total 640 ml 360 ml Balance 640 ml 360 ml Labs: Laboratory Tests Test 11/25/18 12:58 11/25/18 15:00 White Blood Count 8.7 x10^3/uL (4.0-11.0) Red Blood Count 4.84 x10^6/uL (3.50-5.40) Hemoglobin 15.5 g/dL (12.0-15.5) Hematocrit 45.7 % (36.0-47.0) Mean Corpuscular Volume 95 fL (79-100) Mean Corpuscular Hemoglobin 32 pg (25-35) Mean Corpuscular Hemoglobin Concent 34 g/dL (31-37) Red Cell Distribution Width 13.3 % (11.5-14.5) Platelet Count 436 x10^3/uL (140-400) H Neutrophils (%) (Auto) 75 % (31-73) H Lymphocytes (%) (Auto) 14 % (24-48) L Monocytes (%) (Auto) 7 % (0-9) Eosinophils (%) (Auto) 4 % (0-3) H Basophils (%) (Auto) 1 % (0-3) Neutrophils # (Auto) 6.5 x10^3uL (1.8-7.7) Lymphocytes # (Auto) 1.2 x10^3/uL (1.0-4.8) Monocytes # (Auto) 0.6 x10^3/uL (0.0-1.1) Eosinophils # (Auto) 0.3 x10^3/uL (0.0-0.7) Basophils # (Auto) 0.0 x10^3/uL (0.0-0.2) Sodium Level 141 mmol/L (136-145) Potassium Level 3.4 mmol/L (3.5-5.1) L Chloride Level 103 mmol/L (98-107) Carbon Dioxide Level 30 mmol/L (21-32) Anion Gap 8 (6-14) Blood Urea Nitrogen 16 mg/dL (7-20) Creatinine 0.8 mg/dL (0.6-1.0) Estimated GFR (Cockcroft-Gault) 70.1 BUN/Creatinine Ratio 20 (6-20) Glucose Level 123 mg/dL (70-99) H Calcium Level 9.3 mg/dL (8.5-10.1) Total Bilirubin 0.6 mg/dL (0.2-1.0) Aspartate Amino Transferase (AST) 23 U/L (15-37) Alanine Aminotransferase (ALT) 16 U/L (14-59) Alkaline Phosphatase 121 U/L (46-116) H Total Protein 7.4 g/dL (6.4-8.2) Albumin 3.0 g/dL (3.4-5.0) L Albumin/Globulin Ratio 0.7 (1.0-1.7) L Urine Collection Type Unknown Urine Color Mckenna Urine Clarity Clear Urine pH 6.0 Urine Specific [place] 1.025 Urine Protein Trace (NEG-TRACE) Urine Glucose (UA) Neg mg/dL (NEG) Urine Ketones (Stick) Trace mg/dL (NEG) Urine Blood Neg (NEG) Urine Nitrite Neg (NEG) Urine Bilirubin Neg (NEG) Urine Urobilinogen Dipstick 0.2 mg/dL (0.2 mg/dL) Urine Leukocyte Esterase Neg (NEG) Urine RBC 1-2 /HPF (0-2) Urine WBC 1-4 /HPF (0-4) Urine Squamous Epithelial Cells Occ /LPF Urine Bacteria Few /HPF (0-FEW) Urine Hyaline Casts Few /HPF Urine Mucus Marked /LPF Current Medications: I have reviewed the current psychotropics carefully including drug interactions. Risk benefit ratio favors no change other than as noted in my dictated progress note. 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
--- NOTE | 2018-11-25 22:00 | NUR ---
Patient in the day room on assumption of care. She is disorganized, confused, tearful. She was compliant with medications and assessments. No agitation, but she was continually trying to get up out of her wheelchair, pushing out the table. She slowly slid out wheelchair, was witnessed by staff. No c/o or s/s pain. No injury noted. Assisted back into wheelchair by 3 staff, she was cooperative with transfer. Given PRN Zydis 2.5mg at 2200, assisted into bed at that time.
--- NOTE | 2018-11-26 02:00 | PN ---
DATE: 11/24/2018 PSYCHIATRIC PROGRESS NOTE This late entry 11/24/2018, covers elements not covered in my initial note. SUBJECTIVE: Met with the patient evening of 11/24/2018. The patient slept 5-1/4 hours previous night. Per nursing report, she is doing "pretty good." She has not been aggressive, remains confused. There is a question about Mirapex or Requip added for Parkinson's. I will defer to Dr. Hernandez. REVIEW OF SYSTEMS: Ambulation impaired, in wheelchair. No CV, , pulmonary, eye, ENT system symptoms on review. Reliability poor. MENTAL STATUS EXAM: Oriented to herself. Insight, judgment, recent and remote memory, attention, concentration, fund of knowledge poor consistent with her diagnosis mentioned in my initial note. PLAN: No change from initial note. MAN Santiago MILLARD MD DR: COURTNEY/raina JOB#: [id number] / [id number]
--- NOTE | 2018-11-26 06:37 | NUR ---
Patient verbally and physically aggressive and combative with AM care. Continuously removing her shirt, swatting at and trying to pinch staff, yelling and swearing loudly.Brought into day room, where she continued to be agitated and difficult to redirect. Medicated with PRN Zyprexa Zarieis at 0630.
[2018-11-26] MEDS: lamoTRIgine 100 MG TABLET. PO SCH ×2 (08:29→19:16)
[2018-11-26] MEDS: PRAMIPEXOLE 0.5 MG TABLET. PO SCH ×3 (08:29→19:16)
[2018-11-26] MEDS: levETIRAcetam 500 MG TABLET PO SCH ×2 (08:29→19:16)
[2018-11-26] MEDS: METOPROLOL SUCC 24HR ER 50 MG TAB.ER.24H. PO SCH (08:30)
[2018-11-26] MEDS: NICOTINE 14MG PATCH. TD SCH (08:30)
[2018-11-26] MEDS: SERTRALINE 50 MG TABLET. PO SCH (08:31)
[2018-11-26] MEDS: ANASTROZOLE 1 MG TABLET PO SCH (08:32)
--- NOTE | 2018-11-26 10:37 | NUR ---
WEEKLY ACTIVITY THERAPY NOTE Date of Admission: 11/20/2018 Date of AT Assessment:11/23/18 Goal aimed:to increase engagement and socialization Initial Goal:Pt. will participate in at least five Activity Therapy groups per week. Weekly progress towards goal: in effect moving forward Group participation level: minimal Weekly highlights: full participation in [employer] democr[employer]- doing cheers and playing paper football Behaviors observed: sitting away from group, delayed moves at time, confused and restless at times, coloring, sleeping all Friday Plan: no change to goal Beneficial adaptations: direct prompting, small groups, more cooperative in the morning
--- NOTE | 2018-11-26 10:37 | NUR ---
WEEKLY NOTE: Pt is eating and sleeping okay. Pt tends to be more delusional during the evenings and somewhat combative. Pt will start Seroquel and has been on Celexa and Lamictal. Pt is accepted to [facility] in [place]. Pt is medication compliant and will need at least two more weeks.
--- NOTE | 2018-11-26 12:17 | NUR ---
Patient was in the dining room during morning rounding. When the nurse went to give patient her medications, she seemed a little confused. Was reminded to take them and swallow. When asked, she said she slept well. No agitation noted, patient denies pain, will continue to monitor.
[2018-11-26] MEDS: QUEtiapine 25 MG TABLET. PO SCH (13:57)
[2018-11-26 15:51] VITALS: BP 97/65
--- NOTE | 2018-11-26 18:09 | NUR ---
Patient was leaving the dining room when she lost her balance and fell backwards hitting her head on the wall near the south nurse's station. CT of the head was ordered. Vitals were taken: BP 152/87, IL-88, SPO2- 95%. Spoke to patient's daughter as well as DPOA, physician notified. Patient is alert, is frustrated with falling and is tearful. Currently heading to imaging now. Will continue to monitor.
--- NOTE | 2018-11-26 18:43 | RAD ---
Exam: CT head INDICATION: Fall TECHNIQUE: Sequential axial images through the head were obtained without the administration of IV contrast. Comparisons: 11/22/2018 FINDINGS: No focal parenchymal lesion or hemorrhage is identified. There is no midline shift or sulcal effacement. Jackson patchy hypodensities within the periventricular and subcortical white matter which is similar when compared to the prior exam. No acute vascular territory infarction is identified, however evaluation is somewhat limited given pre-existing ischemic change. The ventricular system is within normal limits without compression hydrocephalus. The basal cisterns are well maintained. Frothy secretions within the right sphenoid sinus. No acute fractures. IMPRESSION: 1. Chronic ischemic changes without acute intracranial abnormality. 2. Sinus disease as described above. Exposure: One or more of the following in the visualized dose reduction techniques were utilized for this examination: 1. Automated exposure control 2. Adjustment of the MA and/or KV according to patient size Use of iterative of reconstructive technique Electronically signed by: Shu Jackson MD (11/26/2018 6:40 PM) [facility]
--- NOTE | 2018-11-26 19:09 | NUR ---
Dr. Solis here for rounds. Dr. Day just finished rounds. New order for pt to be 1:1 for 24 hour for safety r/t fall.
[2018-11-26] MEDS: traZODone 50 MG TABLET. PO SCH (19:16)
[2018-11-26] MEDS: ATORVASTATIN CALCIUM 10 MG TABLET. PO SCH (19:16)
[2018-11-26] MEDS: MIRTAZAPINE 15 MG TABLET PO SCH (19:16)
--- NOTE | 2018-11-26 21:00 | NUR ---
Patient in the day room on assumption of care, 1:1 for safety r/t earlier fall. She is confused, disorganized, agitated on redirection. PRN Zyprexa Zydis 2.5mg at 1945. Compliant with assessments and took medications crushed in vanilla pudding. She denies pain or discomfort, no hallucinations or delusions noted on this shift. During PM care and transfer to bed, patient was cooperative and compliant with staff assistance.
--- NOTE | 2018-11-26 22:02 | PDOC ---
Exam Note: Otto Note: Please also refer to the separate dictated note~for this date of service dictated separately.~Patient seen individually. Discussed the patient with Nursing staff reviewed the chart.~Reviewed interim history and current functioning. Reviewed vital signs,~Labs/ Radiology~and current medications noted below. Continue current treatment with the changes noted in the dictated addendum note Assessment: Vital Signs/I&O: Vital Signs Date Time Temp Pulse Resp B/P (MAP) Pulse Ox O2 Delivery O2 Flow Rate FiO2 11/26/18 15:51 97.6 71 19 97/65 (76) 93 Room Air I & O 11/25/18 11/25/18 11/26/18 14:59 22:59 06:59 Intake Total 300 ml 0 ml 240 ml Balance 300 ml 0 ml 240 ml Current Medications: Meds: Current Medications Medications (Trade) Dose Ordered Sig/Lidia Route PRN Reason Start Time Stop Time Status Last Admin Dose Admin Sertraline HCl (Zoloft) 50 mg DAILY PO 11/26/18 09:00 11/26/18 08:32 Quetiapine Fumarate (SEROquel) 12.5 mg 1400 PO 11/26/18 14:00 11/26/18 13:57 I have reviewed the current psychotropics carefully including drug interactions. Risk benefit ratio favors no change other than as noted in my dictated progress note. 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
[2018-11-27 06:00] VITALS: BP 104/64
[2018-11-27] MEDS: levETIRAcetam 500 MG TABLET PO SCH ×2 (07:58→20:03)
[2018-11-27] MEDS: lamoTRIgine 100 MG TABLET. PO SCH ×2 (07:58→20:04)
[2018-11-27] MEDS: METOPROLOL SUCC 24HR ER 50 MG TAB.ER.24H. PO SCH (07:59)
[2018-11-27] MEDS: PRAMIPEXOLE 0.5 MG TABLET. PO SCH ×3 (07:59→20:03)
[2018-11-27] MEDS: NICOTINE 14MG PATCH. TD SCH (08:00)
[2018-11-27] MEDS: SERTRALINE 50 MG TABLET. PO SCH (08:00)
[2018-11-27] MEDS: ANASTROZOLE 1 MG TABLET PO SCH (08:23)
--- NOTE | 2018-11-27 12:25 | NUR ---
Patient slept in some this morning, took medications, allowed for morning assessment. Patient did better with her confusion this morning, was able to swallow her medications whole. No agitation noted, will continue to monitor.
[2018-11-27] MEDS: QUEtiapine 25 MG TABLET. PO SCH (13:13)
--- NOTE | 2018-11-27 13:15 | NUR ---
SW met with pt at his request as he wanted to give information as "further insight into pt situation". Pt appeared to be manic to the point that SW was not able to get a word in edgewise; speech was somewhat pressured. Pt discussed his mental health history/diagnosis (Schizoaffective D/O) and how he believes that it may have caused trouble; however, his greatest concern is that pt believes that he is cheating with someone else and he reports that it was not the case. Pt feels that pt was a major bully and because of the stress he was not able to stay with her and moved to [facility]. Pt mentioned that he feels that pt has a lot of animosity towards him stating "the second she quit being intimate with me, I knew something was wrong" but he will never divorce her and will continue to hold onto her as long as possible. "I've been with her since 1970 and have no intentions of going anywhere unless the good Lord says otherwise".
[2018-11-27 16:58] VITALS: BP 94/60
--- NOTE | 2018-11-27 18:44 | NUR ---
Patient got frustrated with staff was yelling, shouting, trying to scratch staff members. PRN ritchie given @1837. Patient is still in the dayroom. Will continue to monitor.
[2018-11-27] MEDS: MIRTAZAPINE 15 MG TABLET PO SCH (20:03)
[2018-11-27] MEDS: ATORVASTATIN CALCIUM 10 MG TABLET. PO SCH (20:03)
[2018-11-27] MEDS: traZODone 50 MG TABLET. PO SCH (20:04)
--- NOTE | 2018-11-27 20:42 | PN ---
DATE: 11/25/2018 PSYCHIATRIC PROGRESS NOTE This late entry, 11/25/2018, covers elements not covered in my initial note. SUBJECTIVE: I met with the patient evening of 11/25/2018. The patient slept 5-1/2 hours previous night. UA has been done to see if we can find a reason for her increased confusion. She was agitated, combative in the morning, then later walked with physical therapy staff without walker to her room. Took a nap of 1-1/2 hours and walked again with physical therapy. Per nursing staff, daughter called from [facility] and is closely involved in the patient's care. Intermittently, restless, agitated at times. REVIEW OF SYSTEMS: Ambulation impaired, in wheelchair. No CV, , pulmonary, eye, ENT system symptoms on review. Reliability poor. MENTAL STATUS EXAM: Oriented to herself. Insight, judgment, recent and remote memory, attention, concentration, fund of knowledge poor, consistent with her diagnoses. IMPRESSION: Major neurocognitive disorder, multifactorial, possibly Alzheimer, vascular, Lewy body, status post traumatic with subdural hematoma with delusion, depression, behavioral disturbance; anxiety disorder, unspecified; impulse control disorder, unspecified; Parkinson's disease, impaired ambulation. Rest unchanged from initial note. PLAN: Change Celexa 20 mg a day to Zoloft 50 mg a day. Maintain Lamictal 200 mg b.i.d. for seizure disorder. Continue Remeron, Zyprexa p.r.n., trazodone. Rest unchanged for now. JOE MILLARD MD DR: COURTNEY/raina JOB#: [id number] / [id number]
--- NOTE | 2018-11-27 21:49 | PDOC ---
Exam Note: Otto Note: Please also refer to the separate dictated note~for this date of service dictated separately.~Patient seen individually. Discussed the patient with Nursing staff reviewed the chart.~Reviewed interim history and current functioning. Reviewed vital signs,~Labs/ Radiology~and current medications noted below. Continue current treatment with the changes noted in the dictated addendum note Assessment: Vital Signs/I&O: Vital Signs Date Time Temp Pulse Resp B/P (MAP) Pulse Ox O2 Delivery O2 Flow Rate FiO2 11/27/18 16:58 98.0 72 16 94/60 (71) 98 11/26/18 15:51 Room Air I & O 11/26/18 11/26/18 11/27/18 14:59 22:59 06:59 Intake Total 960 ml 240 ml 240 ml Balance 960 ml 240 ml 240 ml Current Medications: I have reviewed the current psychotropics carefully including drug interactions. Risk benefit ratio favors no change other than as noted in my dictated progress note. 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
--- NOTE | 2018-11-27 23:00 | NUR ---
Patient is in the day room on assumption of care, continues to be 1:1 for safety. She is pleasant. Calm, cooperative and compliant with medications and assessments. Took her meds whole. Denies pain, no hallucinations or delusions noted. She did attempt to get up without assistance several times, but was pleasant and cooperative with redirection. Cooperative with PM care and getting into bed. Sleeping comfortably at present time.
--- NOTE | 2018-11-27 23:38 | PN ---
DATE: 11/26/2018 PSYCHIATRIC PROGRESS NOTE This late entry, 11/26, covers elements not covered in my initial note. SUBJECTIVE: I met with the patient evening of 11/26 and staffed a treatment team meeting with the entire team in the morning. Reviewed the patient's history, diagnosis, progress. She is sleeping about 6 hours average, appetite 50-75%. She has been increasingly restless, confused and disorganized. She did have a fall after dinner evening of 11/26 and hit her head. CT head reportedly shows no changes from previous CT head. She has been disrobing at times. She would be returning to [facility]. REVIEW OF SYSTEMS: Ambulation impaired. No CV, , pulmonary, eye system symptoms on review. MENTAL STATUS EXAMINATION: Oriented to herself. Insight and judgment, recent and remote memory, attention, concentration, fund of knowledge poor, consistent with her diagnosis mentioned in my initial note. PLAN: Given her agitation around 2:00 p.m., we will add Seroquel 12.5 mg at 2:00 p.m. Staff will be keeping a very close eye for fall risk given her past history of subdural. Continue rest of the psychotropics unchanged. JOE MILLARD MD DR: COURTNEY/raina JOB#: [id number] / [id number]
[2018-11-28 06:00] VITALS: BP 105/68
[2018-11-28] MEDS: levETIRAcetam 500 MG TABLET PO SCH ×2 (08:30→19:39)
[2018-11-28] MEDS: PRAMIPEXOLE 0.5 MG TABLET. PO SCH ×3 (08:30→19:39)
[2018-11-28] MEDS: lamoTRIgine 100 MG TABLET. PO SCH ×2 (08:30→19:39)
[2018-11-28] MEDS: CHOLECALCIFEROL (VITAMIN D3) 50,000 UNIT CAPSULE PO SCH (08:30)
[2018-11-28] MEDS: SERTRALINE 50 MG TABLET. PO SCH (08:30)
[2018-11-28] MEDS: METOPROLOL SUCC 24HR ER 50 MG TAB.ER.24H. PO SCH (08:30)
[2018-11-28] MEDS: NICOTINE 14MG PATCH. TD SCH (08:31)
[2018-11-28] MEDS: ANASTROZOLE 1 MG TABLET PO SCH (09:00)
--- NOTE | 2018-11-28 11:52 | NUR ---
Has been compliant with shower this a.m. and nursing assessment. Social with peers in day room. Seems euphoric, pleasant and happy. Needed much redirection to hold pills, drink water, unable to coordinate task without much assistance. Added personal alarm to her w/c or chair as seated due to poor impulse control and previous falls. Continues on 1:1 with staff at all times for safety from falling.
[2018-11-28] MEDS: QUEtiapine 25 MG TABLET. PO SCH (14:03)
[2018-11-28 15:29] VITALS: BP 89/61
--- NOTE | 2018-11-28 18:05 | NUR ---
Fell asleep lying down on couch in dayroom. Refused to get up for supper. Finally with assist of two, transferred to w/c, attempted to toilet, but began yelling and resistant. C/O being cold, shivering, warm blanket provided. Sat slumped over at dinner table for 30 minutes. Able to feed self after redirected. Significant tremors noted in hands.
[2018-11-28] MEDS: traZODone 50 MG TABLET. PO SCH (19:39)
[2018-11-28] MEDS: ATORVASTATIN CALCIUM 10 MG TABLET. PO SCH (19:39)
[2018-11-28] MEDS: MIRTAZAPINE 15 MG TABLET PO SCH (19:39)
--- NOTE | 2018-11-28 19:59 | PDOC ---
Exam Note: Otto Note: Please also refer to the separate dictated note~for this date of service dictated separately.~Patient seen individually. Discussed the patient with Nursing staff reviewed the chart.~Reviewed interim history and current functioning. Reviewed vital signs,~Labs/ Radiology~and current medications noted below. Continue current treatment with the changes noted in the dictated addendum note Assessment: Vital Signs/I&O: Vital Signs Date Time Temp Pulse Resp B/P (MAP) Pulse Ox O2 Delivery O2 Flow Rate FiO2 11/28/18 15:29 97.7 85 18 89/61 (70) 97 11/26/18 15:51 Room Air I & O 11/27/18 11/27/18 11/28/18 15:00 23:00 07:00 Intake Total 480 ml 240 ml 240 ml Balance 480 ml 240 ml 240 ml Current Medications: I have reviewed the current psychotropics carefully including drug interactions. Risk benefit ratio favors no change other than as noted in my dictated progress note. 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
[2018-11-28] MEDS: traZODone 50 MG TABLET. PO PRN (22:03)
--- NOTE | 2018-11-28 22:53 | NUR ---
Pt located in the dayroom this evening. Pt extremely restless and confused. Pt compliant with medications with prompting as pt was unsure of what to do with them in her mouth. Irritable with assessment. Calling out for Ed. Repeat Trazodone administered at 2200. Pt currently resting in bed.
--- NOTE | 2018-11-29 02:52 | NUR ---
Pt woke up screaming that she needed to go to the bathroom. While staff was attempting to help pt up, pt became combative and starting screaming. Pt taken to bathroom with staff x3 where she urinated. Pt then placed back in bed with pressure alarm on. Pt combative/yelling this entire time. PRN Zyprexa administered sublingually. Pt extremely restless in bed, attempting to get up repeatedly. Staff at bedside for safety. During this time, pt disrobed and took her brief off. Pt yelling "fucking bastard," "bitch," "fuck you Ed," etc. Pt labile; yelling one minute and then tearful the next. Staff currently at bedside as pt continues to be restless and yelling. Will continue to monitor.
[2018-11-29 06:06] VITALS: BP 145/72
[2018-11-29] MEDS: levETIRAcetam 500 MG TABLET PO SCH ×2 (08:06→20:14)
[2018-11-29] MEDS: lamoTRIgine 100 MG TABLET. PO SCH ×2 (08:06→20:14)
[2018-11-29] MEDS: NICOTINE 14MG PATCH. TD SCH (08:06)
[2018-11-29] MEDS: PRAMIPEXOLE 0.5 MG TABLET. PO SCH ×3 (08:06→20:13)
[2018-11-29] MEDS: SERTRALINE 50 MG TABLET. PO SCH (08:06)
[2018-11-29] MEDS: METOPROLOL SUCC 24HR ER 50 MG TAB.ER.24H. PO SCH (08:07)
[2018-11-29] MEDS: ANASTROZOLE 1 MG TABLET PO SCH (08:47)
--- NOTE | 2018-11-29 13:18 | NUR ---
Has been compliant, happy, and giggling at times. Confused and totally non related responses to questions. Well known friends visited for lunch, when asked who these people were she pointed to her salad and said that's macanese. Mood is labile, coordination and impulse control is poor. Has personal chair alarm attached while in w/c and 1:1 in staff sight at all times. Ate meals, but poor intake. Alert but not oriented to persons, place or times.
[2018-11-29] MEDS: QUEtiapine 25 MG TABLET. PO SCH (15:37)
[2018-11-29 16:23] VITALS: BP 124/62
[2018-11-29] MEDS: MIRTAZAPINE 15 MG TABLET PO SCH (20:13)
[2018-11-29] MEDS: traZODone 50 MG TABLET. PO SCH (20:13)
[2018-11-29] MEDS: ATORVASTATIN CALCIUM 10 MG TABLET. PO SCH (20:13)
--- NOTE | 2018-11-29 21:45 | PDOC ---
Exam Note: Otto Note: Please also refer to the separate dictated note~for this date of service dictated separately.~Patient seen individually. Discussed the patient with Nursing staff reviewed the chart.~Reviewed interim history and current functioning. Reviewed vital signs,~Labs/ Radiology~and current medications noted below. Continue current treatment with the changes noted in the dictated addendum note Assessment: Vital Signs/I&O: Vital Signs Date Time Temp Pulse Resp B/P (MAP) Pulse Ox O2 Delivery O2 Flow Rate FiO2 11/29/18 16:23 97.0 84 20 124/62 (82) 97 11/26/18 15:51 Room Air I & O 11/28/18 11/28/18 11/29/18 15:00 23:00 07:00 Intake Total 720 ml 480 ml Balance 720 ml 480 ml Current Medications: Meds: Current Medications Medications (Trade) Dose Ordered Sig/Lidia Route PRN Reason Start Time Stop Time Status Last Admin Dose Admin Trazodone HCl (Desyrel) 50 mg PRN QHS PRN PO INSOMNIA 11/28/18 22:00 11/28/18 22:03 I have reviewed the current psychotropics carefully including drug interactions. Risk benefit ratio favors no change other than as noted in my dictated progress note. 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
--- NOTE | 2018-11-29 22:01 | PN ---
DATE: 11/28/2018 PSYCHIATRIC PROGRESS NOTE. This late entry of 11/28/2018 covers the elements not covered in my initial note. SUBJECTIVE: I met with the patient in the evening of 11/28/2018. The patient slept 3-3/4 hours previous night. She has had a good day, remains confused, withdrawn, in a wheelchair. REVIEW OF SYSTEMS: No CV, , pulmonary, eye, ENT system symptoms on review. Reliability poor. MENTAL STATUS EXAM: Oriented to herself. Insight, judgment, recent and remote memory, attention, concentration, fund of knowledge poor, consistent with her diagnosis mentioned in my initial note. PLAN: No change from initial note, but will change the Celexa 20 mg a day to Zoloft 50 mg a day since she does not seem to have responded to Celexa. MAN Santiago MILLARD MD DR: COURTNEY/raina JOB#: [id number] / [id number]
--- NOTE | 2018-11-29 22:18 | PN ---
DATE: 11/27/2018 PSYCHIATRIC PROGRESS NOTE This late entry 11/27/2018 covers elements not covered in my initial note. SUBJECTIVE: I met with the patient in the evening of 11/27/2018. The patient slept 5 hours previous night. Previous night, she was disrobing confused, slept late in the morning, less confused when she woke up, then she was thanking nursing staff or her medications. The patient is not agitated. No PRNs given 11/27/2018. REVIEW OF SYSTEMS: Ambulation impaired, in wheelchair. No CV, , pulmonary, eye, ENT system symptoms on review. Reliability poor. MENTAL STATUS EXAM: Oriented to herself. Insight, judgment, recent and remote memory, attention, concentration, fund of knowledge poor, consistent with her diagnosis mentioned in my initial note. PLAN: No change from initial note. MAN Santiago MILLARD MD DR: COURTNEY/raina JOB#: [id number] / [id number]
[2018-11-29] MEDS: traZODone 50 MG TABLET. PO PRN (22:30)
[2018-11-29] MEDS: hydrOXYzine HCL 25 MG TABLET PO PRN (22:30)
--- NOTE | 2018-11-29 23:30 | NUR ---
Pt located in dayroom this evening. Pt restless in wheelchair, chair alarm placed. Pt highly confused, A/O to self. Compliant with medications crushed in chocolate pudding. Pt continued to be impulsive and restless. Redirection unsuccessful. PRN Atarax and repeat Trazodone administered at 2230.
[2018-11-30 06:15] VITALS: BP 143/82
[2018-11-30] MEDS: SERTRALINE 50 MG TABLET. PO SCH (08:34)
[2018-11-30] MEDS: METOPROLOL SUCC 24HR ER 50 MG TAB.ER.24H. PO SCH (08:34)
[2018-11-30] MEDS: lamoTRIgine 100 MG TABLET. PO SCH ×2 (08:34→20:31)
[2018-11-30] MEDS: PRAMIPEXOLE 0.5 MG TABLET. PO SCH ×3 (08:34→20:31)
[2018-11-30] MEDS: levETIRAcetam 500 MG TABLET PO SCH ×2 (08:34→20:31)
[2018-11-30] MEDS: NICOTINE 14MG PATCH. TD SCH (08:35)
[2018-11-30] MEDS: ANASTROZOLE 1 MG TABLET PO SCH (09:02)
--- NOTE | 2018-11-30 11:50 | NUR ---
Pt located in dayroom this morning sitting for group. Pt restless in wheelchair, chair alarm placed. Pt highly confused, A/O to self. Compliant with medications crushed in chocolate pudding.
[2018-11-30] MEDS: QUEtiapine 25 MG TABLET. PO SCH (15:03)
[2018-11-30 16:25] VITALS: BP 119/75
[2018-11-30] MEDS: MIRTAZAPINE 15 MG TABLET PO SCH (20:31)
[2018-11-30] MEDS: ATORVASTATIN CALCIUM 10 MG TABLET. PO SCH (20:31)
[2018-11-30] MEDS: traZODone 50 MG TABLET. PO SCH (20:31)
[2018-11-30] MEDS: CYPROHEPTADINE 4 MG TABLET. PO SCH (20:32)
--- NOTE | 2018-11-30 21:41 | PDOC ---
Exam Note: Otto Note: Please also refer to the separate dictated note~for this date of service dictated separately.~Patient seen individually. Discussed the patient with Nursing staff reviewed the chart.~Reviewed interim history and current functioning. Reviewed vital signs,~Labs/ Radiology~and current medications noted below. Continue current treatment with the changes noted in the dictated addendum note Assessment: Vital Signs/I&O: Vital Signs Date Time Temp Pulse Resp B/P (MAP) Pulse Ox O2 Delivery O2 Flow Rate FiO2 11/30/18 16:25 97.2 71 20 119/75 (90) 95 11/26/18 15:51 Room Air I & O 11/29/18 11/29/18 11/30/18 14:59 22:59 06:59 Intake Total 600 ml 240 ml 420 ml Balance 600 ml 240 ml 420 ml Current Medications: Meds: Current Medications Medications (Trade) Dose Ordered Sig/Lidia Route PRN Reason Start Time Stop Time Status Last Admin Dose Admin Hydroxyzine HCl (Atarax) 25 mg PRN Q4HRS PRN PO ANXIETY / AGITATION 11/29/18 22:15 11/29/18 22:31 Cyproheptadine HCl (Periactin) 2 mg QHS PO 11/30/18 21:00 11/30/18 20:32 I have reviewed the current psychotropics carefully including drug interactions. Risk benefit ratio favors no change other than as noted in my dictated progress note. 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
--- NOTE | 2018-11-30 22:46 | NUR ---
Pt located in the dayroom this evening. Pt restless in her wheelchair. Chair alarm on. Compliant with medications crushed in chocolate pudding. Pt pleasant and highly confused.
--- NOTE | 2018-12-01 04:48 | PN ---
DATE: 11/29/2018 PSYCHIATRIC PROGRESS NOTE This late entry 11/29/2018 covers elements not covered in my initial note. SUBJECTIVE: I met with the patient in the evening of 11/29/2018. The patient slept 5 hours previous night. She had a very difficult night the previous night, angry, irritable, despite repeat trazodone. She has been cursing, using ____ frequently per nursing report. Seems to have sundowning. Oral intake is poor and we will add Periactin 2 mg at bedtime to stimulate this. REVIEW OF SYSTEMS: Ambulation impaired, in wheelchair. No CV, , pulmonary, eye, ENT system symptoms on review. Reliability poor. MENTAL STATUS EXAM: Oriented to herself. Insight, judgment, recent and remote memory, attention, concentration and fund of knowledge are poor, consistent with her diagnosis mentioned in my initial note. IMPRESSION: Major neurocognitive disorder, Alzheimer, vascular with delusion, depression, behavioral disturbance; anxiety disorder, unspecified; impulse control disorder, unspecified. PLAN: Start hydroxyzine 25 mg q. 4 hours p.r.n. anxiety, agitation, max 100 mg in 24 hours since the Zyprexa was ineffective. Staff had called me at night. Maintain, rest unchanged. Start Periactin. JOE MILLARD MD DR: COURTNEY/raina JOB#: [id number] / [id number]
--- NOTE | 2018-12-01 05:14 | NUR ---
Pt extremely combative and agitated this morning. Pt hitting and kicking staff. Upon transfer, pt became weight and refused to cooperate. Pt currently in the dayroom yelling "fuck you," "you bitch," etc. PRN Zydis administered sublingually.
[2018-12-01 06:06] VITALS: BP 130/80
[2018-12-01 07:24] LABS: BASO % 1 % (0-3); EOS # 0.4 x10^3/uL (0.0-0.7); EOS % 8 % (0-3); HEMATOCRIT 44.1 % (36.0-47.0); HEMOGLOBIN 15.1 g/dL (12.0-15.5); LYMPH # 1.3 x10^3/uL (1.0-4.8); LYMPH % 27 % (24-48); MEAN CORPUSCULAR HEMOGLOBIN 33 pg (25-35); MEAN CORPUSCULAR HGB CONC 34 g/dL (31-37); MEAN CORPUSCULAR VOLUME 95 fL (79-100); MONO # 0.5 x10^3/uL (0.0-1.1); MONO % 9 % (0-9); NEUT # 2.7 x10^3uL (1.8-7.7); NEUT % 55 % (31-73); PLATELET COUNT 376 x10^3/uL (140-400); RED BLOOD COUNT 4.65 x10^6/uL (3.50-5.40); RED CELL DISTRIBUTION WIDTH 13.6 % (11.5-14.5); WHITE BLOOD COUNT 4.9 x10^3/uL (4.0-11.0)
[2018-12-01] MEDS: ANASTROZOLE 1 MG TABLET PO SCH (07:39)
[2018-12-01] MEDS: PRAMIPEXOLE 0.5 MG TABLET. PO SCH ×3 (07:39→20:03)
[2018-12-01] MEDS: lamoTRIgine 100 MG TABLET. PO SCH ×2 (07:39→20:03)
[2018-12-01] MEDS: METOPROLOL SUCC 24HR ER 50 MG TAB.ER.24H. PO SCH (07:40)
[2018-12-01] MEDS: levETIRAcetam 500 MG TABLET PO SCH ×2 (07:40→20:03)
[2018-12-01] MEDS: NICOTINE 14MG PATCH. TD SCH (07:41)
[2018-12-01 07:42] LABS: ALBUMIN/GLOBULIN RATIO 0.7 (1.0-1.7); CREATININE 0.7 mg/dL (0.6-1.0); GFR 81.8; POTASSIUM 3.8 mmol/L (3.5-5.1); TOTAL BILIRUBIN 0.4 mg/dL (0.2-1.0); TOTAL PROTEIN 7.1 g/dL (6.4-8.2)
[2018-12-01] MEDS: SERTRALINE 25 MG TABLET. PO SCH (07:43)
[2018-12-01] MEDS: QUEtiapine 25 MG TABLET. PO SCH (14:21)
--- NOTE | 2018-12-01 14:49 | NUR ---
NURSING NOTE PT WAS A&O TO SELF ONLY THIS MORNING. PT STATES SHE IS IN [place]. PT WAS FIDGETING WITH HER FOOD THIS AM AT BREAKFAST AND POURING HER DRINKS ONTO HER PLATE. PT WAS IN DAY ROOM AFTER BREAKFAST AND WAS PUSHING THE TABLE AROUND, ALMOST TIPPING HER CHAIR OVER, RESTLESS. PT ATE LUNCH AND HAS BEEN NAPPING IN HER ROOM. PT WAS COMPLIANT WITH MEDICATIONS CRUSHED IN PUDDING. WILL CONTINUE TO MONITOR. ION RIBEIRO.
--- NOTE | 2018-12-01 15:29 | NUR ---
NURSING NOTE PT BED ALARM WAS GOING OFF, PT FOUND ON FLOOR NEXT TO BED SITTING UP, PT ROOMMATE STATES SHE SLID OFF THE BED TO THE FLOOR SHE DID NOT FALL. PT DENIES PAIN AND STATES "TAKE ME TO THE BATHROOM". PT HELPED TO FEET AND PUT IN WHEELCHAIR AND TAKEN TO THE RESTROOM. WILL CONTINUE TO MONITOR. ION RIBEIRO.
[2018-12-01 15:54] VITALS: BP 133/79
--- NOTE | 2018-12-01 16:41 | NUR ---
NURSING NOTE PT STOOD UP AND STARTED WALKING IN DAY ROOM, ATTEMPT TO HELP PT TO CHAIR, PT BEGAN YELLING AND SCREAMING AT STAFF. PT STATES "YOU BASTARDS". PT SITTING IN QUIET GARNETT ATTEMPTING TO GET UP OUT OF CHAIR AND IS NOT REDIRECTABLE. PT GIVEN PRN ZYPREXA. PT REFUSED. MED CRUSHED AND PUT IN LIQ AND GIVEN TO PT. WILL CONTINUE TO MONITOR. ION RIBEIRO.
[2018-12-01] MEDS: CYPROHEPTADINE 4 MG TABLET. PO SCH (20:03)
[2018-12-01] MEDS: MIRTAZAPINE 15 MG TABLET PO SCH (20:03)
[2018-12-01] MEDS: traZODone 50 MG TABLET. PO SCH (20:03)
[2018-12-01] MEDS: ATORVASTATIN CALCIUM 10 MG TABLET. PO SCH (21:32)
--- NOTE | 2018-12-01 22:01 | PDOC ---
Exam Note: Otto Note: Please also refer to the separate dictated note~for this date of service dictated separately.~Patient seen individually. Discussed the patient with Nursing staff reviewed the chart.~Reviewed interim history and current functioning. Reviewed vital signs,~Labs/ Radiology~and current medications noted below. Continue current treatment with the changes noted in the dictated addendum note Assessment: Vital Signs/I&O: Vital Signs Date Time Temp Pulse Resp B/P (MAP) Pulse Ox O2 Delivery O2 Flow Rate FiO2 12/01/18 15:54 97.5 67 20 133/79 (97) 92 Room Air I & O 11/30/18 11/30/18 12/01/18 15:00 23:00 07:00 Intake Total 600 ml 240 ml 240 ml Balance 600 ml 240 ml 240 ml Labs: Laboratory Tests Test 12/01/18 06:54 White Blood Count 4.9 x10^3/uL (4.0-11.0) Red Blood Count 4.65 x10^6/uL (3.50-5.40) Hemoglobin 15.1 g/dL (12.0-15.5) Hematocrit 44.1 % (36.0-47.0) Mean Corpuscular Volume 95 fL (79-100) Mean Corpuscular Hemoglobin 33 pg (25-35) Mean Corpuscular Hemoglobin Concent 34 g/dL (31-37) Red Cell Distribution Width 13.6 % (11.5-14.5) Platelet Count 376 x10^3/uL (140-400) Neutrophils (%) (Auto) 55 % (31-73) Lymphocytes (%) (Auto) 27 % (24-48) Monocytes (%) (Auto) 9 % (0-9) Eosinophils (%) (Auto) 8 % (0-3) H Basophils (%) (Auto) 1 % (0-3) Neutrophils # (Auto) 2.7 x10^3uL (1.8-7.7) Lymphocytes # (Auto) 1.3 x10^3/uL (1.0-4.8) Monocytes # (Auto) 0.5 x10^3/uL (0.0-1.1) Eosinophils # (Auto) 0.4 x10^3/uL (0.0-0.7) Basophils # (Auto) 0.0 x10^3/uL (0.0-0.2) Sodium Level 141 mmol/L (136-145) Potassium Level 3.8 mmol/L (3.5-5.1) Chloride Level 104 mmol/L (98-107) Carbon Dioxide Level 28 mmol/L (21-32) Anion Gap 9 (6-14) Blood Urea Nitrogen 11 mg/dL (7-20) Creatinine 0.7 mg/dL (0.6-1.0) Estimated GFR (Cockcroft-Gault) 81.8 BUN/Creatinine Ratio 16 (6-20) Glucose Level 94 mg/dL (70-99) Calcium Level 9.0 mg/dL (8.5-10.1) Total Bilirubin 0.4 mg/dL (0.2-1.0) Aspartate Amino Transferase (AST) 18 U/L (15-37) Alanine Aminotransferase (ALT) 12 U/L (14-59) L Alkaline Phosphatase 109 U/L (46-116) Total Protein 7.1 g/dL (6.4-8.2) Albumin 3.0 g/dL (3.4-5.0) L Albumin/Globulin Ratio 0.7 (1.0-1.7) L Current Medications: Meds: Current Medications Medications (Trade) Dose Ordered Sig/Lidia Route PRN Reason Start Time Stop Time Status Last Admin Dose Admin Sertraline HCl (Zoloft) 75 mg DAILY PO 12/01/18 09:00 12/01/18 07:43 I have reviewed the current psychotropics carefully including drug interactions. Risk benefit ratio favors no change other than as noted in my dictated progress note. 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
--- NOTE | 2018-12-01 23:53 | NUR ---
Nursing Note: Assumed care of pt. this evening, she was in the day room sitting in her W/C with alarm on. She has been anxious at times, need frequent reminders to not get up, and still restive with care at times. She has been compliant with taking her HS meds crushed in pudding. pt was yelling out, when staff was putting her to bed. PRN Zyprexa given, see MAR.
--- NOTE | 2018-12-02 00:16 | PN ---
DATE: 11/30/2018 PSYCHIATRIC PROGRESS NOTE This late entry 11/30/2018, covers the elements not covered in my initial note. SUBJECTIVE: I met with the patient in the evening of 11/30/2018. The patient remains confused, slept 5 hours previous night. Appetite is poor, takes her meds in pudding, gets a little anxious, restless at times. REVIEW OF SYSTEMS: Ambulation impaired, in wheelchair. No CV, , pulmonary, eye, ENT system symptoms on review. Reliability poor. MENTAL STATUS EXAM: Oriented to herself. Insight, judgment, recent and remote memory, attention, concentration, fund of knowledge poor, consistent with her diagnosis mentioned in my initial note. PLAN: No change from initial note. For the most part, she has been less agitated. We will maintain the increased Zoloft. Continue Zyprexa p.r.n., trazodone, Seroquel, Lamictal and Remeron along with hydroxyzine. JOE MILLARD MD DR: COURTNEY/raina JOB#: [id number] / [id number]
[2018-12-02] MEDS: hydrOXYzine HCL 25 MG TABLET PO PRN (01:56)
[2018-12-02] MEDS: traZODone 50 MG TABLET. PO PRN (01:56)
[2018-12-02 06:18] VITALS: BP 109/71
[2018-12-02] MEDS: levETIRAcetam 500 MG TABLET PO SCH ×2 (07:51→20:31)
[2018-12-02] MEDS: PRAMIPEXOLE 0.5 MG TABLET. PO SCH ×3 (07:51→20:31)
[2018-12-02] MEDS: lamoTRIgine 100 MG TABLET. PO SCH ×2 (07:51→20:31)
[2018-12-02] MEDS: METOPROLOL SUCC 24HR ER 50 MG TAB.ER.24H. PO SCH (07:52)
[2018-12-02] MEDS: ANASTROZOLE 1 MG TABLET PO SCH (07:53)
[2018-12-02] MEDS: SERTRALINE 25 MG TABLET. PO SCH (07:54)
[2018-12-02] MEDS: NICOTINE 14MG PATCH. TD SCH (07:54)
[2018-12-02] MEDS: QUEtiapine 25 MG TABLET. PO SCH ×2 (07:56→14:57)
--- NOTE | 2018-12-02 10:15 | NUR ---
Patient has refused to take her medications this morning, nurse approached her twice. She was asleep in her wheelchair in the day room. Nurse attempted to wake her and she swatted at nurse. She stated she was cold so nurse put her blanket around her shoulders. Will attempt to administer with lunch. Meds are crushed in pudding. Addendum: 12/02/18 at 1942 by KOBY TOLLIVER RN Patient ate about half of her morning medications in pudding and then refused the rest. Patient irritable.
--- NOTE | 2018-12-02 14:00 | NUR ---
WEEKLY ACTIVITY THERAPY NOTE Date of Admission: 11/20/2018 Date of AT Assessment:11/23/18 Goal aimed:to increase engagement and socialization Initial Goal:Pt. will participate in at least five Activity Therapy groups per week. Weekly progress towards goal: did not achieve, 03/21 Group participation level: minimal in one group Weekly highlights: smiling during play-dough group on Friday Behaviors observed: restless, fidgeting with papers, wandering, resistive to walk to dinner on Friday, yelling out and angry at staff, disengaged, sleeping often Plan: no change to goal at this time. Beneficial adaptations: direct prompting, small groups, more cooperative in the morning
[2018-12-02 15:53] VITALS: BP 103/67
--- NOTE | 2018-12-02 16:29 | NUR ---
WEEKLY NOTE Pt is eating 50-75% and sleeping roughly 5 hours of sleep. Pt can be combative is confused and requires redirection for her behaviors. Pt did have a UA and it came back negative; however, another UA will be repeated. Pt will start Melatonin 3mg in combination with Remeron and Trazadone. Pt is also Seroquel. ELOS for the next 10-14 days.
--- NOTE | 2018-12-02 18:00 | NUR ---
Patient combative with brief change after dinner. Two staff members required to assist. Patient yelling, hitting and calling staff "stupid bitches".
[2018-12-02] MEDS: ACETAMINOPHEN 325 MG TABLET PO PRN (20:25)
[2018-12-02] MEDS: traZODone 50 MG TABLET. PO SCH (20:31)
[2018-12-02] MEDS: MIRTAZAPINE 15 MG TABLET PO SCH (20:31)
[2018-12-02] MEDS: ATORVASTATIN CALCIUM 10 MG TABLET. PO SCH (20:31)
[2018-12-02] MEDS: MELATONIN 3 MG TABLET PO SCH (20:31)
[2018-12-02] MEDS: CYPROHEPTADINE 4 MG TABLET. PO SCH (20:31)
--- NOTE | 2018-12-02 22:04 | PDOC ---
Exam Note: Otto Note: Please also refer to the separate dictated note~for this date of service dictated separately.~Patient seen individually. Discussed the patient with Nursing staff reviewed the chart.~Reviewed interim history and current functioning. Reviewed vital signs,~Labs/ Radiology~and current medications noted below. Continue current treatment with the changes noted in the dictated addendum note Assessment: Vital Signs/I&O: Vital Signs Date Time Temp Pulse Resp B/P (MAP) Pulse Ox O2 Delivery O2 Flow Rate FiO2 12/02/18 15:53 97.8 70 17 103/67 (79) 97 12/01/18 15:54 Room Air I & O 12/01/18 12/01/18 12/02/18 15:00 23:00 07:00 Intake Total 480 ml 120 ml Balance 480 ml 120 ml Current Medications: Meds: Current Medications Medications (Trade) Dose Ordered Sig/Lidia Route PRN Reason Start Time Stop Time Status Last Admin Dose Admin Quetiapine Fumarate (SEROquel) 12.5 mg BID92 PO 12/02/18 09:00 12/02/18 14:57 Melatonin 3 mg HS PO 12/02/18 21:00 12/02/18 20:31 I have reviewed the current psychotropics carefully including drug interactions. Risk benefit ratio favors no change other than as noted in my dictated progress note. 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
--- NOTE | 2018-12-02 22:49 | PN ---
DATE: 12/01/2018 PSYCHIATRIC PROGRESS NOTE This late entry 12/01/2018 covers elements not covered in my initial note. SUBJECTIVE: I met with the patient in the evening. Per Mckenna RN, patient slept 7 hours previous night. She has had a very difficult day, has been anxious, restless, slid herself out of bed, was found on the floor, bed alarm was going off. No injuries noted. She tries to slip out of the wheelchair, anxious, restless, aggressive when placed on the chair, received Zyprexa p.r.n., cursing out at staff, name calling, swinging at staff. REVIEW OF SYSTEMS: Ambulation impaired, in wheelchair. No CV, , pulmonary, eye, ENT system symptoms on review. Reliability poor. MENTAL STATUS EXAMINATION: Oriented to herself. Insight, judgment, recent and remote memory, attention, concentration, fund of knowledge poor, consistent with her diagnosis mentioned in my initial note. PLAN: Seroquel is currently 12.5 mg at 1400. We will increase it to 12.5 mg at 0900 and 1400. Continue rest unchanged for now from initial note. MAN Santiago MILLARD MD DR: COURTNEY/raina JOB#: [id number] / [id number]
--- NOTE | 2018-12-02 23:23 | NUR ---
Nursing Note: Assumed care of pt. this evening, she was sitting in the day room. She appears to be calm, pleasantly confused, and interacting with one of the staff. She has been compliant with taking her HS meds crushed in pudding. This evening when staff put her to bed, she was not yelling out like she had been.
--- NOTE | 2018-12-03 06:21 | NUR ---
Nursing Note: Pt. slept throughout the night with out any issues. This morning when the staff was getting her up she was yelling, trying to hit the staff, and kicking the staff. It took multiple staff to get pt. up this morning due to the behaviors noted above.
[2018-12-03] MEDS: NICOTINE 14MG PATCH. TD SCH (08:05)
[2018-12-03] MEDS: lamoTRIgine 100 MG TABLET. PO SCH ×2 (08:05→20:10)
[2018-12-03] MEDS: QUEtiapine 25 MG TABLET. PO SCH ×2 (08:06→13:23)
[2018-12-03] MEDS: levETIRAcetam 500 MG TABLET PO SCH ×2 (08:08→20:10)
[2018-12-03] MEDS: ANASTROZOLE 1 MG TABLET PO SCH (08:08)
[2018-12-03] MEDS: PRAMIPEXOLE 0.5 MG TABLET. PO SCH ×3 (08:08→20:10)
[2018-12-03] MEDS: SERTRALINE 25 MG TABLET. PO SCH (08:09)
[2018-12-03 09:42] LABS: BILIRUBIN,URINE NEG (NEG); CLARITY,URINE TURBID; COLOR,URINE AMBER; GLUCOSE,URINE NEG (NEG); NITRITE,URINE NEG (NEG); UROBILINOGEN,URINE 0.2 mg/dL (0.2 mg/dL)
[2018-12-03 09:43] LABS: BACTERIA,URINE MANY /HPF (0-FEW); SQUAMOUS EPITHELIAL CELL,UR FEW /LPF
[2018-12-03] MEDS: METOPROLOL SUCC 24HR ER 50 MG TAB.ER.24H. PO SCH (10:05)
--- NOTE | 2018-12-03 10:06 | NUR ---
Patient has refused vital signs x2. Held metoprolol because nurse has no current BP or HR.
--- NOTE | 2018-12-03 13:16 | NUR ---
SW emailed pt dtr to follow up re: pt behaviors and potential for discharge within the next week to week and a half. SW also faxed over records to [facility], as that is where pt is to be placed once stable.
--- NOTE | 2018-12-03 13:57 | NUR ---
Patient remains under close supervision r/t fall risk and impulsivity. She has spent time looking at magazines and is currently sitting by the window talking about the blue curtains. Medications were given crushed in one bite of vanilla pudding, she was compliant each time. Patient remains combative and resistive with cares while being dressed or toileted. She is hitting and irritable to staff this afternoon. PRN zyprexa given at 1329 for irritability/combativeness and agitation.
--- NOTE | 2018-12-03 16:45 | NUR ---
Daughter Sabina called from [place] to check on patient. Patient spoke to daughter and patients conversation was animated and appropriate while on the phone. Daughter expressed dismay about how fast patient has gone from independent ADLs to needing so much assistance. Nurse talked to daughter about natural disease procession. Daughter stated that she lives in [facility] and comes home a few times a year to visit her mother.
[2018-12-03 16:49] VITALS: BP 104/71
[2018-12-03] MEDS: traZODone 50 MG TABLET. PO SCH (20:10)
[2018-12-03] MEDS: CYPROHEPTADINE 4 MG TABLET. PO SCH (20:10)
[2018-12-03] MEDS: MIRTAZAPINE 15 MG TABLET PO SCH (20:10)
[2018-12-03] MEDS: MELATONIN 3 MG TABLET PO SCH (20:10)
[2018-12-03] MEDS: ATORVASTATIN CALCIUM 10 MG TABLET. PO SCH (20:12)
--- NOTE | 2018-12-03 21:44 | PDOC ---
Exam Note: Otto Note: Please also refer to the separate dictated note~for this date of service dictated separately.~Patient seen individually. Discussed the patient with Nursing staff reviewed the chart.~Reviewed interim history and current functioning. Reviewed vital signs,~Labs/ Radiology~and current medications noted below. Continue current treatment with the changes noted in the dictated addendum note Assessment: Vital Signs/I&O: Vital Signs Date Time Temp Pulse Resp B/P (MAP) Pulse Ox O2 Delivery O2 Flow Rate FiO2 12/03/18 16:49 97.8 90 18 104/71 (82) 97 12/01/18 15:54 Room Air I & O 12/02/18 12/02/18 12/03/18 14:59 22:59 06:59 Intake Total 480 ml 60 ml 120 ml Balance 480 ml 60 ml 120 ml Labs: Laboratory Tests Test 12/03/18 09:00 Urine Collection Type Unknown Urine Color Mckenna Urine Clarity Turbid Urine pH 5.5 Urine Specific [place] 1.020 Urine Protein Neg (NEG-TRACE) Urine Glucose (UA) Neg mg/dL (NEG) Urine Ketones (Stick) Neg mg/dL (NEG) Urine Blood Neg (NEG) Urine Nitrite Neg (NEG) Urine Bilirubin Neg (NEG) Urine Urobilinogen Dipstick 0.2 mg/dL (0.2 mg/dL) Urine Leukocyte Esterase Small (NEG) Urine RBC 3-5 /HPF (0-2) Urine WBC 11-20 /HPF (0-4) Urine Squamous Epithelial Cells Few /LPF Urine Bacteria Many /HPF (0-FEW) Current Medications: I have reviewed the current psychotropics carefully including drug interactions. Risk benefit ratio favors no change other than as noted in my dictated progress note. 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
[2018-12-03] MEDS: traZODone 50 MG TABLET. PO PRN (22:51)
--- NOTE | 2018-12-03 23:56 | NUR ---
Pt located in dayroom this evening with staff sitting close by d/t pt's restlessness and being impulsive. Pt compliant with medications crushed in pudding. Pt confused and irritable at times. Calling out for Ed and Sabina. Repeat Trazodone administered at 2250. Pt currently laying in bed asleep.
[2018-12-04 05:58] VITALS: BP 168/78
[2018-12-04] MEDS: METOPROLOL SUCC 24HR ER 50 MG TAB.ER.24H. PO SCH (08:31)
[2018-12-04] MEDS: SERTRALINE 25 MG TABLET. PO SCH (08:31)
[2018-12-04] MEDS: levETIRAcetam 500 MG TABLET PO SCH ×2 (08:33→19:15)
[2018-12-04] MEDS: PRAMIPEXOLE 0.5 MG TABLET. PO SCH ×3 (08:33→19:17)
[2018-12-04] MEDS: NICOTINE 14MG PATCH. TD SCH (08:33)
[2018-12-04] MEDS: lamoTRIgine 100 MG TABLET. PO SCH ×2 (08:33→19:16)
[2018-12-04] MEDS: QUEtiapine 25 MG TABLET. PO SCH ×2 (08:33→14:33)
[2018-12-04] MEDS: ANASTROZOLE 1 MG TABLET PO SCH (08:39)
--- NOTE | 2018-12-04 15:01 | NUR ---
Nursing Note: Pt in the dining room for morning medications. Pt calm, compliant w/ meds taken crushed in pudding, cooperative w/ assessment. Pt confused, disorganized, interactive w/ staff.
[2018-12-04 17:10] VITALS: BP 102/72
[2018-12-04] MEDS: CYPROHEPTADINE 4 MG TABLET. PO SCH (19:15)
[2018-12-04] MEDS: MIRTAZAPINE 15 MG TABLET PO SCH (19:15)
[2018-12-04] MEDS: MELATONIN 3 MG TABLET PO SCH (19:15)
[2018-12-04] MEDS: traZODone 50 MG TABLET. PO SCH (19:15)
[2018-12-04] MEDS: ATORVASTATIN CALCIUM 10 MG TABLET. PO SCH (19:16)
--- NOTE | 2018-12-04 21:48 | NUR ---
At shift change patient was in day room and very pleasant. Took medications for this nurse and was compliant with assessment. A little while later patient became very angry and trying to stand with out help, patient screamed at this nurse "you bitch" " I'm going home and going to bed" Also kept telling other patients to shut up. Redirected patient. Patient put to bed a little while later and was fighting GRILL ATTENDANT's with care.
--- NOTE | 2018-12-04 22:05 | PDOC ---
Exam Note: Otto Note: Please also refer to the separate dictated note~for this date of service dictated separately.~Patient seen individually. Discussed the patient with Nursing staff reviewed the chart.~Reviewed interim history and current functioning. Reviewed vital signs,~Labs/ Radiology~and current medications noted below. Continue current treatment with the changes noted in the dictated addendum note Assessment: Vital Signs/I&O: Vital Signs Date Time Temp Pulse Resp B/P (MAP) Pulse Ox O2 Delivery O2 Flow Rate FiO2 12/04/18 17:10 97.4 110 18 102/72 (82) 93 12/01/18 15:54 Room Air I & O 12/03/18 12/03/18 12/04/18 15:00 23:00 07:00 Intake Total 600 ml 240 ml 120 ml Balance 600 ml 240 ml 120 ml Current Medications: I have reviewed the current psychotropics carefully including drug interactions. Risk benefit ratio favors no change other than as noted in my dictated progress note. 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
[2018-12-05 05:44] VITALS: BP 123/67
[2018-12-05] MEDS: lamoTRIgine 100 MG TABLET. PO SCH ×2 (08:38→19:48)
[2018-12-05] MEDS: PRAMIPEXOLE 0.5 MG TABLET. PO SCH ×3 (08:38→19:47)
[2018-12-05] MEDS: levETIRAcetam 500 MG TABLET PO SCH ×2 (08:38→19:48)
[2018-12-05] MEDS: METOPROLOL SUCC 24HR ER 50 MG TAB.ER.24H. PO SCH (08:39)
[2018-12-05] MEDS: QUEtiapine 25 MG TABLET. PO SCH ×2 (08:41→14:26)
[2018-12-05] MEDS: SERTRALINE 25 MG TABLET. PO SCH (08:41)
[2018-12-05] MEDS: NICOTINE 14MG PATCH. TD SCH (08:42)
[2018-12-05] MEDS: ANASTROZOLE 1 MG TABLET PO SCH (08:44)
[2018-12-05] MEDS: CHOLECALCIFEROL (VITAMIN D3) 50,000 UNIT CAPSULE PO SCH (08:45)
--- NOTE | 2018-12-05 10:31 | PN ---
DATE: 12/02/2018 PSYCHIATRIC PROGRESS NOTE This late entry 12/02/2018 covers elements not covered in my initial note. SUBJECTIVE: I met with the patient evening of 12/02/2018. The patient slept just 2-1/2 hours previous night. Appetite 50-75%, but average sleep is being 5 hours a night. Refused medications, anxious, resistive to cares, yelling, screaming at staff, has to be in line of safety of staff because of fall risk, refusing medications. We will check a UA, rule out urinary tract infection. Lunchtime, she was yelling repeatedly, loudly. REVIEW OF SYSTEMS: Ambulation impaired, in wheelchair. No CV, , pulmonary, eye, ENT system symptoms on review. Reliability poor. MENTAL STATUS EXAM: Oriented to herself. Insight, judgment, recent and remote memory, attention, concentration, fund of knowledge poor, consistent with her diagnosis mentioned in my initial note. PLAN: No change from initial note. Start melatonin 3 mg at bedtime. Rest unchanged. MAN Santiago MILLARD MD DR: COURTNEY/raina JOB#: [id number] / [id number]
[2018-12-05 15:59] VITALS: BP 113/70
--- NOTE | 2018-12-05 16:30 | NUR ---
Compliant and pleasantly confused this shift. No evidence of hallucinations, however calling out to staff member as if he is her son. Interacting with female peers all day in dayroom. No agitation today. But toward evening started becoming more confused. Dr. Hernandez saw pt. and assessed her hand tremors and coordination. Pt. unable to stand from sitting position.
[2018-12-05] MEDS: MELATONIN 3 MG TABLET PO SCH (19:47)
[2018-12-05] MEDS: MIRTAZAPINE 15 MG TABLET PO SCH (19:47)
[2018-12-05] MEDS: CYPROHEPTADINE 4 MG TABLET. PO SCH (19:48)
[2018-12-05] MEDS: ATORVASTATIN CALCIUM 10 MG TABLET. PO SCH (19:48)
[2018-12-05] MEDS: traZODone 50 MG TABLET. PO SCH (19:48)
--- NOTE | 2018-12-05 19:53 | PN ---
DATE: 12/03/2018 PSYCHIATRIC PROGRESS NOTE This late entry 12/03/2018 covers elements not covered in my initial note. SUBJECTIVE: I met with the patient in the evening. The patient slept 8 hours previous night. UA has reflex to culture. We will await this. Combative in the morning with vitals and cares. Received Zyprexa at 1:30 p.m. Later took her medications in pudding. Refused a.m. vitals, at 1329, she was combative with cares, med compliant, talked to her daughter. REVIEW OF SYSTEMS: Ambulation impaired, in wheelchair. No CV, , pulmonary, eye, ENT system symptoms on review. Reliability poor. MENTAL STATUS EXAM: Oriented to herself. Insight, judgment, recent and remote memory, attention, concentration, fund of knowledge poor, consistent with her diagnosis mentioned in my initial note. PLAN: No change from initial note. Await urine culture and treat as clinically indicated. Adjust psychotropics thereafter. JOE MILLARD MD DR: COURTNEY/raina JOB#: [id number] / [id number]
--- NOTE | 2018-12-05 23:05 | PDOC ---
Exam Note: Otto Note: Please also refer to the separate dictated note~for this date of service dictated separately.~Patient seen individually. Discussed the patient with Nursing staff reviewed the chart.~Reviewed interim history and current functioning. Reviewed vital signs,~Labs/ Radiology~and current medications noted below. Continue current treatment with the changes noted in the dictated addendum note Assessment: Vital Signs/I&O: Vital Signs Date Time Temp Pulse Resp B/P (MAP) Pulse Ox O2 Delivery O2 Flow Rate FiO2 12/05/18 15:59 97.2 72 20 113/70 (84) 97 12/01/18 15:54 Room Air I & O 12/04/18 12/04/18 12/05/18 15:00 23:00 07:00 Intake Total 720 ml 440 ml Balance 720 ml 440 ml Current Medications: I have reviewed the current psychotropics carefully including drug interactions. Risk benefit ratio favors no change other than as noted in my dictated progress note. 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
[2018-12-05] MEDS: traZODone 50 MG TABLET. PO PRN (23:28)
--- NOTE | 2018-12-05 23:43 | NUR ---
Pt located in dayroom this evening. Pt calm and compliant with crushed medications. Once in bed, pt restless and unable to fall asleep. Pt combative and yelling when attempting to administer repeat Trazodone. Medication administered sublingually with staff x4.
--- NOTE | 2018-12-06 02:31 | PN ---
DATE: 12/04/2018 PSYCHIATRIC PROGRESS NOTE This late entry of 12/04 covers elements not covered in my initial note. SUBJECTIVE: I met with the patient on the evening of 12/04. Per ION Rico, the patient slept 5-1/4 hours the previous night. She has done much better during the day. At night, she got repeat trazodone, slept better. Appetite is fair. She participated with occupational therapy and physical therapy, smiling more, laughing. Urine C and S is awaited. REVIEW OF SYSTEMS: Ambulation impaired, in wheelchair. No CV, , pulmonary, eye, ENT system symptoms on review. Reliability poor. MENTAL STATUS EXAMINATION: Oriented to herself. Insight, judgment, recent and remote memory, attention, concentration, fund of knowledge poor; consistent with her diagnosis mentioned in my initial note. PLAN: No change from initial note. Await urine C and S, and treat as clinically indicated. JOE MILLARD MD DR: COURTNEY/raina JOB#: [id number] / [id number]
[2018-12-06] MEDS: hydrOXYzine HCL 25 MG TABLET PO PRN (02:45)
--- NOTE | 2018-12-06 03:07 | NUR ---
Pt awake and restless in bed. Pt hollering out for Ed and Sabina. PRN Atarax administered sublingually with staff x4. Pt combative and cursing at staff. Will continue to monitor.
[2018-12-06 06:27] VITALS: BP 117/79
[2018-12-06] MEDS: NICOTINE 14MG PATCH. TD SCH (09:20)
[2018-12-06] MEDS: PRAMIPEXOLE 0.5 MG TABLET. PO SCH ×3 (09:20→20:03)
[2018-12-06] MEDS: SERTRALINE 25 MG TABLET. PO SCH (09:21)
[2018-12-06] MEDS: lamoTRIgine 100 MG TABLET. PO SCH ×2 (09:21→20:05)
[2018-12-06] MEDS: METOPROLOL SUCC 24HR ER 50 MG TAB.ER.24H. PO SCH (09:21)
[2018-12-06] MEDS: levETIRAcetam 500 MG TABLET PO SCH ×2 (09:22→20:03)
[2018-12-06] MEDS: QUEtiapine 25 MG TABLET. PO SCH ×2 (09:22→15:18)
[2018-12-06] MEDS: ANASTROZOLE 1 MG TABLET PO SCH (09:50)
--- NOTE | 2018-12-06 14:25 | NUR ---
Continues labile today. Very confused and happy at times, then irritable and unable to redirect. Slept at lunch table, then awoke confused and restless. Alert to self. Able to take meds whole with much direction and assistance. Wearing personal alarm in w/c for impulsivity, but unable to stand on her own without assistance.
[2018-12-06 15:57] VITALS: BP 113/72
[2018-12-06] MEDS: MELATONIN 3 MG TABLET PO SCH (20:03)
[2018-12-06] MEDS: MIRTAZAPINE 15 MG TABLET PO SCH (20:04)
[2018-12-06] MEDS: CYPROHEPTADINE 4 MG TABLET. PO SCH (20:04)
[2018-12-06] MEDS: traZODone 50 MG TABLET. PO SCH (20:04)
[2018-12-06] MEDS: ATORVASTATIN CALCIUM 10 MG TABLET. PO SCH (20:04)
--- NOTE | 2018-12-06 21:40 | PDOC ---
Exam Note: Otto Note: Please also refer to the separate dictated note~for this date of service dictated separately.~Patient seen individually. Discussed the patient with Nursing staff reviewed the chart.~Reviewed interim history and current functioning. Reviewed vital signs,~Labs/ Radiology~and current medications noted below. Continue current treatment with the changes noted in the dictated addendum note Assessment: Vital Signs/I&O: Vital Signs Date Time Temp Pulse Resp B/P (MAP) Pulse Ox O2 Delivery O2 Flow Rate FiO2 12/06/18 15:57 98.0 69 20 113/72 (86) 93 12/01/18 15:54 Room Air I & O 12/05/18 12/05/18 12/06/18 15:00 23:00 07:00 Intake Total 600 ml 480 ml Balance 600 ml 480 ml Current Medications: I have reviewed the current psychotropics carefully including drug interactions. Risk benefit ratio favors no change other than as noted in my dictated progress note. 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
--- NOTE | 2018-12-06 23:59 | NUR ---
Pt sitting calmly in the dayroom this evening. Compliant with crushed medications. Pt combative with cares, attempting to hit, kick and spit at staff.
[2018-12-07] MEDS: MAGNESIUM HYDROXIDE 2,400 MG/30 ML ORAL.SUSP. PO PRN (05:23)
[2018-12-07] MEDS: hydrOXYzine HCL 25 MG TABLET PO PRN (05:27)
--- NOTE | 2018-12-07 05:37 | NUR ---
Pt extremely agitated and combative this morning. Pt hitting and kicking, yelling and cursing at staff. PRN Atarax administered sublingually. Pt does not have a recorded BM since 12/01. PRN MOM administered.
[2018-12-07 06:11] VITALS: BP 116/64
[2018-12-07 06:28] LABS: BASO # 0.1 x10^3/uL (0.0-0.2); BASO % 1 % (0-3); EOS # 0.3 x10^3/uL (0.0-0.7); EOS % 5 % (0-3); HEMATOCRIT 41.8 % (36.0-47.0); HEMOGLOBIN 14.1 g/dL (12.0-15.5); LYMPH # 1.9 x10^3/uL (1.0-4.8); LYMPH % 37 % (24-48); MEAN CORPUSCULAR HEMOGLOBIN 32 pg (25-35); MEAN CORPUSCULAR HGB CONC 34 g/dL (31-37); MEAN CORPUSCULAR VOLUME 95 fL (79-100); MONO # 0.5 x10^3/uL (0.0-1.1); MONO % 10 % (0-9); NEUT # 2.3 x10^3uL (1.8-7.7); NEUT % 46 % (31-73); PLATELET COUNT 308 x10^3/uL (140-400); RED CELL DISTRIBUTION WIDTH 13.7 % (11.5-14.5)
[2018-12-07 06:44] LABS: ALBUMIN 2.8 g/dL (3.4-5.0); ALBUMIN/GLOBULIN RATIO 0.7 (1.0-1.7); CALCIUM 8.8 mg/dL (8.5-10.1); CREATININE 0.7 mg/dL (0.6-1.0); GFR 81.8; TOTAL BILIRUBIN 0.4 mg/dL (0.2-1.0); TOTAL PROTEIN 6.9 g/dL (6.4-8.2)
[2018-12-07] MEDS: levETIRAcetam 500 MG TABLET PO SCH ×2 (07:55→21:09)
[2018-12-07] MEDS: METOPROLOL SUCC 24HR ER 50 MG TAB.ER.24H. PO SCH (07:55)
[2018-12-07] MEDS: NICOTINE 14MG PATCH. TD SCH (07:55)
[2018-12-07] MEDS: lamoTRIgine 100 MG TABLET. PO SCH ×2 (07:55→21:09)
[2018-12-07] MEDS: SERTRALINE 25 MG TABLET. PO SCH (07:55)
[2018-12-07] MEDS: PRAMIPEXOLE 0.5 MG TABLET. PO SCH ×3 (07:55→21:10)
[2018-12-07] MEDS: ANASTROZOLE 1 MG TABLET PO SCH (07:56)
[2018-12-07] MEDS: QUEtiapine 25 MG TABLET. PO SCH ×3 (07:58→17:15)
[2018-12-07 16:10] VITALS: BP 145/70
[2018-12-07] MEDS: ATORVASTATIN CALCIUM 10 MG TABLET. PO SCH (21:09)
[2018-12-07] MEDS: MELATONIN 3 MG TABLET PO SCH (21:09)
[2018-12-07] MEDS: CYPROHEPTADINE 4 MG TABLET. PO SCH (21:09)
[2018-12-07] MEDS: MIRTAZAPINE 15 MG TABLET PO SCH (21:09)
[2018-12-07] MEDS: traZODone 50 MG TABLET. PO SCH (21:09)
--- NOTE | 2018-12-07 21:43 | PDOC ---
Exam Note: Otto Note: Please also refer to the separate dictated note~for this date of service dictated separately.~Patient seen individually. Discussed the patient with Nursing staff reviewed the chart.~Reviewed interim history and current functioning. Reviewed vital signs,~Labs/ Radiology~and current medications noted below. Continue current treatment with the changes noted in the dictated addendum note Assessment: Vital Signs/I&O: Vital Signs Date Time Temp Pulse Resp B/P (MAP) Pulse Ox O2 Delivery O2 Flow Rate FiO2 12/07/18 16:10 97.7 78 20 145/70 (95) 98 12/01/18 15:54 Room Air I & O 12/06/18 12/06/18 12/07/18 15:00 23:00 07:00 Intake Total 360 ml 240 ml 240 ml Balance 360 ml 240 ml 240 ml Labs: Laboratory Tests Test 12/07/18 06:10 White Blood Count 5.0 x10^3/uL (4.0-11.0) Red Blood Count 4.40 x10^6/uL (3.50-5.40) Hemoglobin 14.1 g/dL (12.0-15.5) Hematocrit 41.8 % (36.0-47.0) Mean Corpuscular Volume 95 fL (79-100) Mean Corpuscular Hemoglobin 32 pg (25-35) Mean Corpuscular Hemoglobin Concent 34 g/dL (31-37) Red Cell Distribution Width 13.7 % (11.5-14.5) Platelet Count 308 x10^3/uL (140-400) Neutrophils (%) (Auto) 46 % (31-73) Lymphocytes (%) (Auto) 37 % (24-48) Monocytes (%) (Auto) 10 % (0-9) H Eosinophils (%) (Auto) 5 % (0-3) H Basophils (%) (Auto) 1 % (0-3) Neutrophils # (Auto) 2.3 x10^3uL (1.8-7.7) Lymphocytes # (Auto) 1.9 x10^3/uL (1.0-4.8) Monocytes # (Auto) 0.5 x10^3/uL (0.0-1.1) Eosinophils # (Auto) 0.3 x10^3/uL (0.0-0.7) Basophils # (Auto) 0.1 x10^3/uL (0.0-0.2) Sodium Level 142 mmol/L (136-145) Potassium Level 4.0 mmol/L (3.5-5.1) Chloride Level 105 mmol/L (98-107) Carbon Dioxide Level 29 mmol/L (21-32) Anion Gap 8 (6-14) Blood Urea Nitrogen 14 mg/dL (7-20) Creatinine 0.7 mg/dL (0.6-1.0) Estimated GFR (Cockcroft-Gault) 81.8 BUN/Creatinine Ratio 20 (6-20) Glucose Level 93 mg/dL (70-99) Calcium Level 8.8 mg/dL (8.5-10.1) Total Bilirubin 0.4 mg/dL (0.2-1.0) Aspartate Amino Transferase (AST) 17 U/L (15-37) Alanine Aminotransferase (ALT) 17 U/L (14-59) Alkaline Phosphatase 102 U/L (46-116) Total Protein 6.9 g/dL (6.4-8.2) Albumin 2.8 g/dL (3.4-5.0) L Albumin/Globulin Ratio 0.7 (1.0-1.7) L Current Medications: Meds: Current Medications Medications (Trade) Dose Ordered Sig/Lidia Route PRN Reason Start Time Stop Time Status Last Admin Dose Admin Quetiapine Fumarate (SEROquel) 12.5 mg TID@0900,1300,1700 PO 12/07/18 09:00 12/07/18 17:15 I have reviewed the current psychotropics carefully including drug interactions. Risk benefit ratio favors no change other than as noted in my dictated progress note. 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
--- NOTE | 2018-12-08 01:19 | NUR ---
Nursing Note The patient was located in the day room for her medication and assessment. The patient took he medication whole and was appropriate albeit confused during her assessment. The patient is currently sleeping in her room.
[2018-12-08] MEDS: traZODone 50 MG TABLET. PO PRN ×2 (01:52→19:44)
--- NOTE | 2018-12-08 03:19 | PN ---
DATE: 12/05/2018 PSYCHIATRIC PROGRESS NOTE This late entry 12/05/2018 covers the elements not covered in my initial note. SUBJECTIVE: I met with the patient in the evening of 12/05/2018. The patient slept 7-3/4 hours previous night. She has been compliant with medications, but needs much redirection to get pills into her mouth or take a drink per nursing report. She is pleasantly confused all day, giddy. Wheelchair alarm for impulsivity. She only walks with assistance of 2 and usually physical therapy. REVIEW OF SYSTEMS: Ambulation impaired. No CV, , pulmonary, eye, ENT system symptoms on review. Reliability poor. MENTAL STATUS EXAM: Oriented to herself. Insight, judgment, recent and remote memory, attention, concentration, fund of knowledge poor, consistent with her diagnosis mentioned in my initial note. PLAN: No change from initial note. MAN Santiago MILLARD MD DR: COURTNEY/raina JOB#: [id number] / [id number]
--- NOTE | 2018-12-08 04:08 | PN ---
DATE: 12/06/2018 PSYCHIATRIC PROGRESS NOTE This late entry, 12/06/2018, covers elements not covered in my initial note. SUBJECTIVE: I met with the patient in the evening. The patient slept 7-3/4 hours previous night. She has been labile at night. Trazodone was repeated, received Atarax. Restless, combative, medications had to be syringed. Urine C and S is negative. REVIEW OF SYSTEMS: Ambulation impaired, in wheelchair. No CV, , pulmonary, eye, ENT system symptoms on review. Reliability poor. MENTAL STATUS EXAM: Oriented to herself. Insight, judgment, recent and remote memory, attention, concentration, fund of knowledge poor, consistent with her diagnosis mentioned in my initial note. PLAN: No change from initial note. MAN Santiago MILLARD MD DR: COURTNEY/raina JOB#: [id number] / [id number]
[2018-12-08 06:28] VITALS: BP 92/53
[2018-12-08] MEDS: PRAMIPEXOLE 0.5 MG TABLET. PO SCH ×3 (08:29→19:43)
[2018-12-08] MEDS: QUEtiapine 25 MG TABLET. PO SCH ×3 (08:29→17:54)
[2018-12-08] MEDS: lamoTRIgine 100 MG TABLET. PO SCH ×2 (08:29→19:43)
[2018-12-08] MEDS: ANASTROZOLE 1 MG TABLET PO SCH (08:33)
[2018-12-08] MEDS: levETIRAcetam 500 MG TABLET PO SCH ×2 (08:33→19:43)
[2018-12-08] MEDS: SERTRALINE 25 MG TABLET. PO SCH (08:34)
[2018-12-08] MEDS: NICOTINE 14MG PATCH. TD SCH (08:36)
[2018-12-08] MEDS: METOPROLOL SUCC 24HR ER 50 MG TAB.ER.24H. PO SCH (09:00)
--- NOTE | 2018-12-08 09:52 | NUR ---
Held Metoprolol r/t low blood pressure. Was 92/53 BP, 68 pulse at AM vitals and is now 98/65 BP and 68 pulse. She was showered this morning. Patient yelled out continually and was very resistive. She was yelling and very reluctant to get her hair and body washed. She has calmed down since returning to the day room.
--- NOTE | 2018-12-08 10:50 | NUR ---
Patient is sitting in day room in wheelchair. Patient is not participating in group as she appears to be sleeping. Patient only got 2 hours of sleep last night. This nurse offered medications crushed in chocolate pudding, patient took a swing at this nurse and said "get away". Nurse applied the nicotine patch and patient yelled "just leave me alone". Will give medications at lunch time with her meal when she is more awake.
--- NOTE | 2018-12-08 12:32 | NUR ---
Held 1300/1400 medications because patient just took her AM medications related to her refusal this morning. Seroquel and Parpixole were given with morning meds at 1232.
--- NOTE | 2018-12-08 12:54 | NUR ---
VIVIANA emailed pt dtr pt current medication list and informed her that if she has any questions, she is more than welcome to contact the unit. VIVIANA also informed pt dtr that tx team is on and VIVIANA will be able to give her more updates at that time.
[2018-12-08 16:59] VITALS: BP 105/63
--- NOTE | 2018-12-08 19:08 | NUR ---
Nurse provided 1700 medication crushed with PRN Zyprexa for agitation sublingually r/t patient swinging at staff during medication pass.
--- NOTE | 2018-12-08 19:40 | NUR ---
Dr. Day instructed staff to give Remeron, melatonin, trazodone and PRN trazodone dose all at HS. Patient only got 2 hours of sleep last night.
[2018-12-08] MEDS: MIRTAZAPINE 15 MG TABLET PO SCH (19:43)
[2018-12-08] MEDS: CYPROHEPTADINE 4 MG TABLET. PO SCH (19:43)
[2018-12-08] MEDS: ATORVASTATIN CALCIUM 10 MG TABLET. PO SCH (19:43)
[2018-12-08] MEDS: MELATONIN 3 MG TABLET PO SCH (19:43)
[2018-12-08] MEDS: traZODone 50 MG TABLET. PO SCH (19:44)
--- NOTE | 2018-12-08 22:07 | PDOC ---
Exam Note: Otto Note: Please also refer to the separate dictated note~for this date of service dictated separately.~Patient seen individually. Discussed the patient with Nursing staff reviewed the chart.~Reviewed interim history and current functioning. Reviewed vital signs,~Labs/ Radiology~and current medications noted below. Continue current treatment with the changes noted in the dictated addendum note Assessment: Vital Signs/I&O: Vital Signs Date Time Temp Pulse Resp B/P (MAP) Pulse Ox O2 Delivery O2 Flow Rate FiO2 12/08/18 16:59 97.5 62 18 105/63 (77) 95 I & O 12/07/18 12/07/18 12/08/18 14:59 22:59 06:59 Intake Total 600 ml 360 ml 120 ml Balance 600 ml 360 ml 120 ml Current Medications: I have reviewed the current psychotropics carefully including drug interactions. Risk benefit ratio favors no change other than as noted in my dictated progress note. 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
--- NOTE | 2018-12-08 22:51 | NUR ---
Nursing Note The patient was located in her room for her medication and assessment. The patient was very agitated and confused during interactions with this nurse but she did take her medication whole. The patient received PRN Trazodone per order from Dr. Day. The patient is currently sleeping in her room.
--- NOTE | 2018-12-08 23:06 | PN ---
DATE: 12/07/2018 PSYCHIATRIC PROGRESS NOTE This late entry 12/07/2018 covers elements not covered in my initial note. SUBJECTIVE: I met with the patient evening of 12/07/2018. Per nursing staff, the patient had increased confusion previous evening with owning, was combative with cares. During the day on 12/07/2018, more pleasant, but confused. REVIEW OF SYSTEMS: Ambulation impaired, in wheelchair. No CV, , pulmonary, eye, ENT system symptoms on review. Reliability poor. She was confused, very pleasant, holding my hand. MENTAL STATUS EXAM: Oriented to herself. Insight, judgment, recent and remote memory, attention, concentration, fund of knowledge poor, consistent with her diagnosis mentioned in my initial note. PLAN: No change from initial note. MAN Santiago MILLARD MD DR: COURTNEY/raina JOB#: [id number] / [id number]
[2018-12-09] MEDS: ACETAMINOPHEN 325 MG TABLET PO PRN (05:45)
[2018-12-09 06:53] VITALS: BP 117/62
[2018-12-09] MEDS: ANASTROZOLE 1 MG TABLET PO SCH (07:57)
[2018-12-09] MEDS: lamoTRIgine 100 MG TABLET. PO SCH ×2 (07:58→20:10)
[2018-12-09] MEDS: levETIRAcetam 500 MG TABLET PO SCH ×2 (07:58→20:11)
[2018-12-09] MEDS: PRAMIPEXOLE 0.5 MG TABLET. PO SCH ×3 (07:58→20:10)
[2018-12-09] MEDS: NICOTINE 14MG PATCH. TD SCH (07:59)
[2018-12-09] MEDS: SERTRALINE 25 MG TABLET. PO SCH (07:59)
[2018-12-09] MEDS: METOPROLOL SUCC 24HR ER 50 MG TAB.ER.24H. PO SCH (08:00)
[2018-12-09] MEDS: QUEtiapine 25 MG TABLET. PO SCH ×3 (08:07→17:28)
--- NOTE | 2018-12-09 11:14 | NUR ---
Patient was in the dining room during morning rounding, took medications whole, allowed for morning assessment. No agitation noted, pt denies pain. Is a little drowsy this morning, will continue to monitor.
[2018-12-09] MEDS: hydrOXYzine HCL 25 MG TABLET PO PRN (14:06)
--- NOTE | 2018-12-09 14:08 | NUR ---
Patient is calling out, at one point stating 'you funny ass, you bitch', attempting to stand without aid, and saying 'I don't give a fuck' at attempts to redirect her. PRN medications provided per eMAR, will report to primary nurse.
[2018-12-09 17:15] VITALS: BP 110/70
[2018-12-09] MEDS: MELATONIN 3 MG TABLET PO SCH (20:10)
[2018-12-09] MEDS: ATORVASTATIN CALCIUM 10 MG TABLET. PO SCH (20:10)
[2018-12-09] MEDS: MIRTAZAPINE 15 MG TABLET PO SCH (20:10)
[2018-12-09] MEDS: traZODone 50 MG TABLET. PO SCH (20:10)
[2018-12-09] MEDS: traZODone 50 MG TABLET. PO PRN (20:10)
[2018-12-09] MEDS: CYPROHEPTADINE 4 MG TABLET. PO SCH (20:11)
--- NOTE | 2018-12-09 21:50 | PDOC ---
Exam Note: Otto Note: Please also refer to the separate dictated note~for this date of service dictated separately.~Patient seen individually. Discussed the patient with Nursing staff reviewed the chart.~Reviewed interim history and current functioning. Reviewed vital signs,~Labs/ Radiology~and current medications noted below. Continue current treatment with the changes noted in the dictated addendum note Assessment: Vital Signs/I&O: Vital Signs Date Time Temp Pulse Resp B/P (MAP) Pulse Ox O2 Delivery O2 Flow Rate FiO2 12/09/18 17:15 97.0 70 16 110/70 (83) 96 I & O 12/08/18 12/08/18 12/09/18 15:00 23:00 07:00 Intake Total 480 ml 700 ml Balance 480 ml 700 ml Current Medications: I have reviewed the current psychotropics carefully including drug interactions. Risk benefit ratio favors no change other than as noted in my dictated progress note. 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
--- NOTE | 2018-12-10 02:29 | PN ---
DATE: 12/08/2018 PSYCHIATRIC PROGRESS NOTE This late entry, 12/08/2018, covers elements not covered in my initial note. SUBJECTIVE: I met with the patient evening of 12/08/2018. The patient slept 2 hours previous night. She had a shower, was yelling in the shower, resistive to medications, later took her medications. She off and on sleeps during the day, but quite anxious, restless, labile in her mood in the evening when I met with her. REVIEW OF SYSTEMS: Ambulation impaired, in wheelchair. No CV, , pulmonary, eye, ENT system symptoms on review. Reliability poor. MENTAL STATUS EXAM: Oriented to herself. Insight, judgment, recent and remote memory, attention, concentration, fund of knowledge poor, consistent with her diagnosis mentioned in my initial note. PLAN: No change from initial note. MAN Santiago MILLARD MD DR: COURTNEY/raina JOB#: [id number] / [id number]
[2018-12-10 06:37] VITALS: BP 108/68
[2018-12-10] MEDS: PRAMIPEXOLE 0.5 MG TABLET. PO SCH ×3 (07:38→20:16)
[2018-12-10] MEDS: levETIRAcetam 500 MG TABLET PO SCH ×2 (07:39→20:16)
[2018-12-10] MEDS: SERTRALINE 25 MG TABLET. PO SCH (07:39)
[2018-12-10] MEDS: METOPROLOL SUCC 24HR ER 50 MG TAB.ER.24H. PO SCH (07:40)
[2018-12-10] MEDS: lamoTRIgine 100 MG TABLET. PO SCH ×2 (07:40→20:16)
[2018-12-10] MEDS: QUEtiapine 25 MG TABLET. PO SCH ×3 (07:40→16:34)
[2018-12-10] MEDS: NICOTINE 14MG PATCH. TD SCH (07:41)
[2018-12-10] MEDS: ANASTROZOLE 1 MG TABLET PO SCH (07:42)
--- NOTE | 2018-12-10 10:35 | NUR ---
WEEKLY ACTIVITY THERAPY NOTE Date of Admission: 11/20/2018 Date of AT Assessment:11/23/18 Goal aimed:to increase engagement and socialization Initial Goal:Pt. will participate in at least five Activity Therapy groups per week. Weekly progress towards goal: achieved, 5/5 Group participation level: minimal, one full Weekly highlights: full participation when arranging rueda Behaviors observed: sleeping often on Friday, behaviors and attention vary from day to day, disorganized at times, yells back at staff when encouraged to walk, sleeping often Plan: no change to goal Beneficial adaptations: direct prompting, small groups, more cooperative in the morning
--- NOTE | 2018-12-10 15:20 | NUR ---
Patient in the day room. She is pleasant, cooperative, med and assessment compliant. Participated with PT. Patient denies pain or discomfort. After lunch, patient wheeled herself to her room and disrobed. Agitated and resistive to staff attempting to assist her with getting dressed. Was dressed and brought back out to day room. Patient is sitting in day room at present time, talking to peers.
[2018-12-10 15:47] VITALS: BP 111/76
--- NOTE | 2018-12-10 19:04 | NUR ---
WEEKLY NOTE: Pt is eating roughly 75-100% of meals and still maintain a poor sleep pattern. Pt continues to be restless and needs to be redirected for her behaviors. Pt has episodes of combativeness during cares and redirection. Another UA on pt will be collected as her last one noted is on 12/03. At this time, pt will discharge to her placement the latter part of next week. Pt dtr reports that pt room is getting decorated and cared for this week to prepare for discharge. SW will follow up with pt family and the facility with updates.
[2018-12-10] MEDS: MIRTAZAPINE 15 MG TABLET PO SCH (20:16)
[2018-12-10] MEDS: traZODone 50 MG TABLET. PO SCH (20:16)
[2018-12-10] MEDS: ATORVASTATIN CALCIUM 10 MG TABLET. PO SCH (20:16)
[2018-12-10] MEDS: MELATONIN 3 MG TABLET PO SCH (20:16)
[2018-12-10] MEDS: CYPROHEPTADINE 4 MG TABLET. PO SCH (20:17)
[2018-12-10] MEDS: traZODone 50 MG TABLET. PO PRN (21:16)
--- NOTE | 2018-12-10 21:56 | PDOC ---
Exam Note: Otto Note: Please also refer to the separate dictated note~for this date of service dictated separately.~Patient seen individually. Discussed the patient with Nursing staff reviewed the chart.~Reviewed interim history and current functioning. Reviewed vital signs,~Labs/ Radiology~and current medications noted below. Continue current treatment with the changes noted in the dictated addendum note Assessment: Vital Signs/I&O: Vital Signs Date Time Temp Pulse Resp B/P (MAP) Pulse Ox O2 Delivery O2 Flow Rate FiO2 12/10/18 15:47 97.0 66 18 111/76 (88) 94 I & O 12/09/18 12/09/18 12/10/18 15:00 23:00 07:00 Intake Total 600 ml 480 ml 240 ml Balance 600 ml 480 ml 240 ml Current Medications: I have reviewed the current psychotropics carefully including drug interactions. Risk benefit ratio favors no change other than as noted in my dictated progress note. 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
--- NOTE | 2018-12-11 00:22 | NUR ---
Nursing Note: Assumed care of pt. this evening, she was sitting out in the day room. She is still resistive/yelling out with ADL's care, calm at times, restless at times, and she was trying to take her shirt off multiples times. Pt. was trying to hit staff, when they were trying to put her shirt back on. She has been compliant with taking her HS meds crushed in pudding.
--- NOTE | 2018-12-11 05:10 | NUR ---
Nursing Note: Pt. this morning was combative when she was getting dress for the morning. She was trying to kick/hit the staff. She kept calling out for Sabina and thought the staff member was Sabina. Tried to re-orientated pt. that she was in the hospital and Sabina was note here, she continue to try to hit staff.
[2018-12-11 05:13] VITALS: BP 137/81
[2018-12-11] MEDS: levETIRAcetam 500 MG TABLET PO SCH ×2 (07:44→21:17)
[2018-12-11] MEDS: PRAMIPEXOLE 0.5 MG TABLET. PO SCH ×3 (07:44→21:17)
[2018-12-11] MEDS: lamoTRIgine 100 MG TABLET. PO SCH ×2 (07:44→21:17)
[2018-12-11] MEDS: QUEtiapine 25 MG TABLET. PO SCH ×3 (07:45→16:17)
[2018-12-11] MEDS: SERTRALINE 25 MG TABLET. PO SCH (07:45)
[2018-12-11] MEDS: NICOTINE 14MG PATCH. TD SCH (07:45)
[2018-12-11] MEDS: METOPROLOL SUCC 24HR ER 50 MG TAB.ER.24H. PO SCH (07:45)
[2018-12-11] MEDS: ANASTROZOLE 1 MG TABLET PO SCH (07:46)
--- NOTE | 2018-12-11 11:01 | NUR ---
Patient was in the dining room during morning rounding, took medications. Was thankful to the nurse and for having such a good breakfast. Also that she slept "fantastic." No agitation noted, pt denies pain. Will continue to monitor.
[2018-12-11 16:29] VITALS: BP 92/61
[2018-12-11] MEDS: ATORVASTATIN CALCIUM 10 MG TABLET. PO SCH (21:17)
[2018-12-11] MEDS: MELATONIN 3 MG TABLET PO SCH (21:17)
[2018-12-11] MEDS: MIRTAZAPINE 15 MG TABLET PO SCH (21:17)
[2018-12-11] MEDS: CYPROHEPTADINE 4 MG TABLET. PO SCH (21:17)
[2018-12-11] MEDS: traZODone 50 MG TABLET. PO SCH (21:17)
[2018-12-11] MEDS: traZODone 50 MG TABLET. PO PRN (21:18)
--- NOTE | 2018-12-11 21:47 | PDOC ---
Exam Note: Otto Note: Please also refer to the separate dictated note~for this date of service dictated separately.~Patient seen individually. Discussed the patient with Nursing staff reviewed the chart.~Reviewed interim history and current functioning. Reviewed vital signs,~Labs/ Radiology~and current medications noted below. Continue current treatment with the changes noted in the dictated addendum note Assessment: Vital Signs/I&O: Vital Signs Date Time Temp Pulse Resp B/P (MAP) Pulse Ox O2 Delivery O2 Flow Rate FiO2 12/11/18 16:29 97.9 66 16 92/61 (71) 94 I & O 12/10/18 12/10/18 12/11/18 15:00 23:00 07:00 Intake Total 720 ml 480 ml 120 ml Balance 720 ml 480 ml 120 ml Current Medications: I have reviewed the current psychotropics carefully including drug interactions. Risk benefit ratio favors no change other than as noted in my dictated progress note. 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
--- NOTE | 2018-12-11 22:25 | PN ---
DATE: 12/09/2018 PSYCHIATRIC PROGRESS NOTE This late entry 12/09/2018 covers elements not covered in my initial note. SUBJECTIVE: According to ION Cullen, the patient slept 8 hours previous night. She remains confused, doing better, compliant with medications, at times less confused. In the evening, she was frustrated easily. She was talking about being alone, buried. She received Atarax and Zyprexa at 3:00 p.m., did better after this. I met with her in the evening. REVIEW OF SYSTEMS: Ambulation impaired, in wheelchair. No CV, , pulmonary, eye, ENT system symptoms on review. Reliability poor. MENTAL STATUS EXAMINATION: Oriented to herself. Insight, judgment, recent and remote memory, attention, concentration, fund of knowledge poor, consistent with her diagnosis mentioned in my initial note. PLAN: No change from initial note. MAN Santiago MILLARD MD DR: COURTNEY/raina JOB#: [id number] / [id number]
--- NOTE | 2018-12-11 22:49 | PN ---
DATE: 12/10/2018 PSYCHIATRIC PROGRESS NOTE This late entry 12/10/2018 covers elements not covered in my initial note. SUBJECTIVE: I met with the patient in the evening. The patient was staffed at a treatment team meeting with the entire team in the morning. The patient slept 6-1/2 hours. Alert, oriented to herself. Appetite 50-75% compliant with meds and showers intermittently. Two days ago, she was extremely agitated and again the day before, she was quite restless, anxious, but better on 12/10/2018. REVIEW OF SYSTEMS: Ambulation impaired, in wheelchair. No CV, , pulmonary, eye, ENT system symptoms on review. Reliability poor. MENTAL STATUS EXAMINATION: Oriented to herself. Insight, judgment, recent and remote memory, attention, concentration, fund of knowledge poor, consistent with her diagnosis mentioned in my initial note. PLAN: No change from initial note. Maintain Zyprexa and trazodone p.r.n., Zoloft, Lamictal, Remeron, Seroquel, melatonin and Atarax p.r.n. MAN Santiago MILLARD MD DR: COURTNEY/raina JOB#: [id number] / [id number]
--- NOTE | 2018-12-11 23:40 | NUR ---
Nursing Note: Assumed care of pt. this evening, she was sitting out in the day room. She has been calm, pleasant, and cooperative at this time. She has been compliant with taking her HS meds whole this evening. Aide's reported that she did good tonight, when they were putting her to bed. No yelling or agitation noted when staff put her to bed.
[2018-12-12] MEDS: traZODone 50 MG TABLET. PO SCH ×2 (01:34→22:01)
[2018-12-12 05:22] VITALS: BP 107/69
[2018-12-12] MEDS: METOPROLOL SUCC 24HR ER 50 MG TAB.ER.24H. PO SCH (07:50)
[2018-12-12] MEDS: levETIRAcetam 500 MG TABLET PO SCH ×2 (07:50→22:00)
[2018-12-12] MEDS: PRAMIPEXOLE 0.5 MG TABLET. PO SCH ×3 (07:50→22:00)
[2018-12-12] MEDS: SERTRALINE 25 MG TABLET. PO SCH (07:51)
[2018-12-12] MEDS: lamoTRIgine 100 MG TABLET. PO SCH ×2 (07:51→22:00)
[2018-12-12] MEDS: QUEtiapine 25 MG TABLET. PO SCH ×3 (07:52→16:17)
[2018-12-12] MEDS: NICOTINE 14MG PATCH. TD SCH (07:52)
[2018-12-12] MEDS: ANASTROZOLE 1 MG TABLET PO SCH (07:55)
[2018-12-12] MEDS: CHOLECALCIFEROL (VITAMIN D3) 50,000 UNIT CAPSULE PO SCH (07:56)
[2018-12-12 08:33] LABS: BASO % 1 % (0-3); EOS # 0.3 x10^3/uL (0.0-0.7); EOS % 5 % (0-3); HEMATOCRIT 42.2 % (36.0-47.0); HEMOGLOBIN 14.4 g/dL (12.0-15.5); LYMPH % 37 % (24-48); MEAN CORPUSCULAR HEMOGLOBIN 32 pg (25-35); MEAN CORPUSCULAR HGB CONC 34 g/dL (31-37); MEAN CORPUSCULAR VOLUME 95 fL (79-100); MONO # 0.5 x10^3/uL (0.0-1.1); MONO % 9 % (0-9); NEUT # 2.6 x10^3uL (1.8-7.7); NEUT % 48 % (31-73); PLATELET COUNT 300 x10^3/uL (140-400); RED BLOOD COUNT 4.43 x10^6/uL (3.50-5.40); WHITE BLOOD COUNT 5.4 x10^3/uL (4.0-11.0)
[2018-12-12 08:51] LABS: ALBUMIN/GLOBULIN RATIO 0.7 (1.0-1.7); CREATININE 0.7 mg/dL (0.6-1.0); GFR 81.8; POTASSIUM 3.6 mmol/L (3.5-5.1); TOTAL BILIRUBIN 0.3 mg/dL (0.2-1.0); TOTAL PROTEIN 7.3 g/dL (6.4-8.2)
[2018-12-12 15:36] VITALS: BP 100/65
[2018-12-12] MEDS: ATORVASTATIN CALCIUM 10 MG TABLET. PO SCH (22:00)
[2018-12-12] MEDS: MELATONIN 3 MG TABLET PO SCH (22:00)
[2018-12-12] MEDS: MIRTAZAPINE 15 MG TABLET PO SCH (22:00)
[2018-12-12] MEDS: traZODone 50 MG TABLET. PO PRN (22:01)
[2018-12-12] MEDS: CYPROHEPTADINE 4 MG TABLET. PO SCH (22:01)
--- NOTE | 2018-12-12 22:19 | PDOC ---
Exam Note: Otto Note: Please also refer to the separate dictated note~for this date of service dictated separately.~Patient seen individually. Discussed the patient with Nursing staff reviewed the chart.~Reviewed interim history and current functioning. Reviewed vital signs,~Labs/ Radiology~and current medications noted below. Continue current treatment with the changes noted in the dictated addendum note Assessment: Vital Signs/I&O: Vital Signs Date Time Temp Pulse Resp B/P (MAP) Pulse Ox O2 Delivery O2 Flow Rate FiO2 12/12/18 15:36 97.6 63 16 100/65 (77) 95 I & O 12/11/18 12/11/18 12/12/18 15:00 23:00 07:00 Intake Total 1200 ml 480 ml 250 ml Balance 1200 ml 480 ml 250 ml Labs: Laboratory Tests Test 12/12/18 07:53 White Blood Count 5.4 x10^3/uL (4.0-11.0) Red Blood Count 4.43 x10^6/uL (3.50-5.40) Hemoglobin 14.4 g/dL (12.0-15.5) Hematocrit 42.2 % (36.0-47.0) Mean Corpuscular Volume 95 fL (79-100) Mean Corpuscular Hemoglobin 32 pg (25-35) Mean Corpuscular Hemoglobin Concent 34 g/dL (31-37) Red Cell Distribution Width 14.0 % (11.5-14.5) Platelet Count 300 x10^3/uL (140-400) Neutrophils (%) (Auto) 48 % (31-73) Lymphocytes (%) (Auto) 37 % (24-48) Monocytes (%) (Auto) 9 % (0-9) Eosinophils (%) (Auto) 5 % (0-3) H Basophils (%) (Auto) 1 % (0-3) Neutrophils # (Auto) 2.6 x10^3uL (1.8-7.7) Lymphocytes # (Auto) 2.0 x10^3/uL (1.0-4.8) Monocytes # (Auto) 0.5 x10^3/uL (0.0-1.1) Eosinophils # (Auto) 0.3 x10^3/uL (0.0-0.7) Basophils # (Auto) 0.0 x10^3/uL (0.0-0.2) Sodium Level 141 mmol/L (136-145) Potassium Level 3.6 mmol/L (3.5-5.1) Chloride Level 104 mmol/L (98-107) Carbon Dioxide Level 30 mmol/L (21-32) Anion Gap 7 (6-14) Blood Urea Nitrogen 19 mg/dL (7-20) Creatinine 0.7 mg/dL (0.6-1.0) Estimated GFR (Cockcroft-Gault) 81.8 BUN/Creatinine Ratio 27 (6-20) H Glucose Level 90 mg/dL (70-99) Calcium Level 9.0 mg/dL (8.5-10.1) Total Bilirubin 0.3 mg/dL (0.2-1.0) Aspartate Amino Transferase (AST) 15 U/L (15-37) Alanine Aminotransferase (ALT) 17 U/L (14-59) Alkaline Phosphatase 110 U/L (46-116) Total Protein 7.3 g/dL (6.4-8.2) Albumin 3.0 g/dL (3.4-5.0) L Albumin/Globulin Ratio 0.7 (1.0-1.7) L Current Medications: I have reviewed the current psychotropics carefully including drug interactions. Risk benefit ratio favors no change other than as noted in my dictated progress note. 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
--- NOTE | 2018-12-12 23:00 | NUR ---
Nursing Note: Assumed care of pt. this evening, she was sitting out in the day room. She has been calm, less resistive with care, and pleasantly confused this evening. She toke her HS meds whole this evening without any issues. She has yelled less this evening, when staff was helping her with ADL's.
[2018-12-13] MEDS: hydrOXYzine HCL 25 MG TABLET PO PRN (00:48)
[2018-12-13 05:52] VITALS: BP 134/74
[2018-12-13] MEDS: QUEtiapine 25 MG TABLET. PO SCH ×3 (08:49→16:12)
[2018-12-13] MEDS: METOPROLOL SUCC 24HR ER 50 MG TAB.ER.24H. PO SCH (08:49)
[2018-12-13] MEDS: SERTRALINE 25 MG TABLET. PO SCH (08:50)
[2018-12-13] MEDS: levETIRAcetam 500 MG TABLET PO SCH ×2 (08:50→20:36)
[2018-12-13] MEDS: lamoTRIgine 100 MG TABLET. PO SCH ×2 (08:51→20:36)
[2018-12-13] MEDS: PRAMIPEXOLE 0.5 MG TABLET. PO SCH ×3 (08:51→20:36)
[2018-12-13] MEDS: NICOTINE 14MG PATCH. TD SCH (08:52)
[2018-12-13] MEDS: ANASTROZOLE 1 MG TABLET PO SCH (09:24)
--- NOTE | 2018-12-13 13:19 | NUR ---
Up in w/c with personal alarm attached for safety from impulsively attempting to stand. Restless, confused, compliant with meds whole, floated in pudding. Fidgeting with things in her hands at table.
[2018-12-13 16:09] VITALS: BP 96/67
--- NOTE | 2018-12-13 18:09 | NUR ---
Delusional on phone to , told him people here were trying to kill her. given report but he is forgetful, thinks she will walk again once home.
[2018-12-13] MEDS: MELATONIN 3 MG TABLET PO SCH (20:36)
[2018-12-13] MEDS: CYPROHEPTADINE 4 MG TABLET. PO SCH (20:36)
[2018-12-13] MEDS: MIRTAZAPINE 15 MG TABLET PO SCH (20:39)
[2018-12-13] MEDS: ATORVASTATIN CALCIUM 10 MG TABLET. PO SCH (20:40)
[2018-12-13] MEDS ORDERED: traZODone 50 MG TABLET. PO ONE (20:45)
--- NOTE | 2018-12-13 21:34 | PDOC ---
Exam Note: Otto Note: Please also refer to the separate dictated note~for this date of service dictated separately.~Patient seen individually. Discussed the patient with Nursing staff reviewed the chart.~Reviewed interim history and current functioning. Reviewed vital signs,~Labs/ Radiology~and current medications noted below. Continue current treatment with the changes noted in the dictated addendum note Assessment: Vital Signs/I&O: Vital Signs Date Time Temp Pulse Resp B/P (MAP) Pulse Ox O2 Delivery O2 Flow Rate FiO2 12/13/18 16:09 98.0 75 16 96/67 (77) 90 12/13/18 05:52 Room Air I & O 12/12/18 12/12/18 12/13/18 15:00 23:00 07:00 Intake Total 360 ml 240 ml 0 ml Balance 360 ml 240 ml 0 ml Current Medications: Meds: Current Medications Medications (Trade) Dose Ordered Sig/Lidia Route PRN Reason Start Time Stop Time Status Last Admin Dose Admin Trazodone HCl (Desyrel) 50 mg 1X ONCE PO 12/13/18 20:45 12/13/18 20:46 DC 12/13/18 20:43 I have reviewed the current psychotropics carefully including drug interactions. Risk benefit ratio favors no change other than as noted in my dictated progress note. 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
--- NOTE | 2018-12-14 00:26 | PN ---
DATE: 12/11/2018 PSYCHIATRIC PROGRESS NOTE This late entry 12/11/2018 covers elements not covered in my initial note. SUBJECTIVE: I met with the patient in the evening. The patient slept 5 hours previous night. Per ION Cullen, the patient had a good day. No aggression. Previous night, she was restless, took her clothes off, received repeat trazodone, has been in onesie as a consequence of this. REVIEW OF SYSTEMS: Ambulation impaired, in wheelchair. No CV, , pulmonary, eye, ENT system symptoms on review. Reliability poor. MENTAL STATUS EXAM: Oriented to herself. Insight, judgment, recent and remote memory, attention, concentration, fund of knowledge poor, consistent with her diagnosis mentioned in my initial note. PLAN: No change from initial note. MAN Santiago MILLARD MD DR: COURTNEY/raina JOB#: [id number] / [id number]
--- NOTE | 2018-12-14 00:45 | NUR ---
Nursing Note: Assumed care of pt. this evening, she was sitting out in the day room. She has been compliant with taking her HS meds whole this evening. No yelling or agitation noted so far.
[2018-12-14 06:04] VITALS: BP 122/79
[2018-12-14] MEDS: NICOTINE 14MG PATCH. TD SCH (07:19)
[2018-12-14] MEDS: levETIRAcetam 500 MG TABLET PO SCH ×2 (07:20→19:24)
[2018-12-14] MEDS: PRAMIPEXOLE 0.5 MG TABLET. PO SCH ×3 (07:20→19:26)
[2018-12-14] MEDS: QUEtiapine 25 MG TABLET. PO SCH ×3 (07:21→17:00)
[2018-12-14] MEDS: SERTRALINE 25 MG TABLET. PO SCH (07:21)
[2018-12-14] MEDS: ANASTROZOLE 1 MG TABLET PO SCH (07:22)
[2018-12-14] MEDS: lamoTRIgine 100 MG TABLET. PO SCH ×2 (07:22→19:26)
[2018-12-14] MEDS: METOPROLOL SUCC 24HR ER 50 MG TAB.ER.24H. PO SCH (07:28)
--- NOTE | 2018-12-14 14:06 | NUR ---
asbestos abatement worker Hima emailed with pts DPOA who gave consent for pt to have flu vaccine.
--- NOTE | 2018-12-14 14:14 | NUR ---
Patient is in the day room on assumption of care. She is in a pleasant mood. Calm, cooperative and compliant with medications and assessments. No agitation, no c/o pain or discomfort.
[2018-12-14] MEDS ORDERED: FLU VAX QS 2019-20 (36MOS+)/PF 0.5 ML SYRINGE. VAX IM ONE (14:15)
[2018-12-14 16:06] VITALS: BP 111/68
[2018-12-14] MEDS: MELATONIN 3 MG TABLET PO SCH (19:24)
[2018-12-14] MEDS: CYPROHEPTADINE 4 MG TABLET. PO SCH (19:25)
[2018-12-14] MEDS: traZODone 50 MG TABLET. PO SCH (19:26)
[2018-12-14] MEDS: MIRTAZAPINE 15 MG TABLET PO SCH (19:27)
[2018-12-14] MEDS: ATORVASTATIN CALCIUM 10 MG TABLET. PO SCH (19:27)
--- NOTE | 2018-12-14 20:00 | NUR ---
Pt in day room visiting with peers pleasant and cooperative. Meds taken crushed in applesauce without difficulty. With HS cares pt yelled some and weighted at times. Has been sleeping well since.
--- NOTE | 2018-12-14 21:44 | PDOC ---
Exam Note: Otto Note: Please also refer to the separate dictated note~for this date of service dictated separately.~Patient seen individually. Discussed the patient with Nursing staff reviewed the chart.~Reviewed interim history and current functioning. Reviewed vital signs,~Labs/ Radiology~and current medications noted below. Continue current treatment with the changes noted in the dictated addendum note Assessment: Vital Signs/I&O: Vital Signs Date Time Temp Pulse Resp B/P (MAP) Pulse Ox O2 Delivery O2 Flow Rate FiO2 12/14/18 16:06 97.9 88 20 111/68 (82) 90 12/14/18 06:04 Room Air I & O 12/13/18 12/13/18 12/14/18 15:00 23:00 07:00 Intake Total 600 ml 240 ml Balance 600 ml 240 ml Current Medications: Meds: Current Medications Medications (Trade) Dose Ordered Sig/Lidia Route PRN Reason Start Time Stop Time Status Last Admin Dose Admin Influenza Virus Vaccine Quadrival (Afluria Quad 2019-20 (3yr Up) Syringe) 0.5 ml ONCE ONCE VAX IM 12/14/18 14:15 12/14/18 14:16 DC 12/14/18 17:28 I have reviewed the current psychotropics carefully including drug interactions. Risk benefit ratio favors no change other than as noted in my dictated progress note. 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
--- NOTE | 2018-12-15 00:40 | PN ---
DATE: 12/12/2018 PSYCHIATRIC PROGRESS NOTE This late entry, 12/12, covers elements not covered in my initial note. SUBJECTIVE: I met with the patient evening of 12/12. The patient slept 5 hours previous night. Per report from ION German, she takes her medications whole. Remains confused, but less agitated. REVIEW OF SYSTEMS: Ambulation impaired, in wheelchair. No CV, , pulmonary, eye, ENT system symptoms on review. Reliability poor. MENTAL STATUS EXAM: Oriented to herself. Insight, judgment, recent and remote memory, attention, concentration, fund of knowledge poor, consistent with her diagnosis mentioned in my initial note. PLAN: No change from initial note. We will start trazodone at bedtime schedule to help with insomnia and rest unchanged for now. MAN Santiago MILLARD MD DR: COURTNEY/raina JOB#: [id number] / [id number]
--- NOTE | 2018-12-15 00:44 | PN ---
DATE: 12/13/2018 PSYCHIATRIC PROGRESS NOTE This late entry 12/13/2018 covers the elements not covered in my initial note. SUBJECTIVE: I met with the patient in the evening. The patient slept 6-1/2 hours previous night, received Zyprexa and Atarax at night, takes meds in applesauce. REVIEW OF SYSTEMS: Ambulation impaired, in wheelchair. No CV, , pulmonary, eye, ENT system symptoms on review. MENTAL STATUS EXAM: Oriented to herself. Insight, judgment, recent and remote memory, attention, concentration, fund of knowledge poor, consistent with her diagnosis mentioned in my initial note. PLAN: No change from initial note. JOE MILLARD MD DR: COURTNEY/raina JOB#: [id number] / [id number]
[2018-12-15 05:57] VITALS: BP 118/75
[2018-12-15] MEDS: METOPROLOL SUCC 24HR ER 50 MG TAB.ER.24H. PO SCH (07:46)
[2018-12-15] MEDS: NICOTINE 14MG PATCH. TD SCH (07:46)
[2018-12-15] MEDS: SERTRALINE 25 MG TABLET. PO SCH (07:47)
[2018-12-15] MEDS: levETIRAcetam 500 MG TABLET PO SCH ×2 (07:47→19:27)
[2018-12-15] MEDS: lamoTRIgine 100 MG TABLET. PO SCH ×2 (07:47→19:28)
[2018-12-15] MEDS: PRAMIPEXOLE 0.5 MG TABLET. PO SCH ×3 (07:47→19:28)
[2018-12-15] MEDS: QUEtiapine 25 MG TABLET. PO SCH ×3 (07:48→15:58)
[2018-12-15] MEDS: ANASTROZOLE 1 MG TABLET PO SCH (07:49)
--- NOTE | 2018-12-15 10:00 | NUR ---
Patient is in the day room on assumption of care. She is in a pleasant mood. Calm, cooperative and compliant with medications and assessments. No agitation, no c/o or s/s pain or discomfort.
[2018-12-15 16:39] VITALS: BP 107/65
[2018-12-15] MEDS: ATORVASTATIN CALCIUM 10 MG TABLET. PO SCH (19:27)
[2018-12-15] MEDS: MIRTAZAPINE 15 MG TABLET PO SCH (19:27)
[2018-12-15] MEDS: traZODone 50 MG TABLET. PO SCH (19:27)
[2018-12-15] MEDS: CYPROHEPTADINE 4 MG TABLET. PO SCH (19:28)
[2018-12-15] MEDS: MELATONIN 3 MG TABLET PO SCH (19:28)
--- NOTE | 2018-12-15 22:17 | PDOC ---
Exam Note: Otto Note: Please also refer to the separate dictated note~for this date of service dictated separately.~Patient seen individually. Discussed the patient with Nursing staff reviewed the chart.~Reviewed interim history and current functioning. Reviewed vital signs,~Labs/ Radiology~and current medications noted below. Continue current treatment with the changes noted in the dictated addendum note Assessment: Vital Signs/I&O: Vital Signs Date Time Temp Pulse Resp B/P (MAP) Pulse Ox O2 Delivery O2 Flow Rate FiO2 12/15/18 16:39 97.4 70 20 107/65 (79) 94 12/14/18 06:04 Room Air I & O 12/14/18 12/14/18 12/15/18 15:00 23:00 07:00 Intake Total 720 ml 240 ml 120 ml Balance 720 ml 240 ml 120 ml Current Medications: I have reviewed the current psychotropics carefully including drug interactions. Risk benefit ratio favors no change other than as noted in my dictated progress note. 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
[2018-12-16 05:56] VITALS: BP 121/61
--- NOTE | 2018-12-16 06:28 | PN ---
DATE: 12/14/2018 This late entry 12/14/2018 covers elements not covered in my initial note. SUBJECTIVE: I met with the patient evening of 12/14/2018. Per ION Chang, the patient slept 6-3/4 hours previous night. She was agitated in the morning, but redirected, spent some time in the day room, received a flu shot in the evening, then laughing and quite appropriate. REVIEW OF SYSTEMS: Ambulation impaired, in wheelchair. No CV, , pulmonary, eye, ENT system symptoms on review. Reliability poor. MENTAL STATUS EXAM: Oriented to herself. Insight, judgment, recent and remote memory, attention, concentration, fund of knowledge poor, consistent with her diagnosis mentioned in my initial note. PLAN: No change from initial note. MAN Santiago MILLARD MD DR: COURTNEY/raina JOB#: [id number] / [id number]
[2018-12-16] MEDS: PRAMIPEXOLE 0.5 MG TABLET. PO SCH ×3 (07:48→19:31)
[2018-12-16] MEDS: ANASTROZOLE 1 MG TABLET PO SCH (07:48)
[2018-12-16] MEDS: lamoTRIgine 100 MG TABLET. PO SCH ×2 (07:48→19:29)
[2018-12-16] MEDS: levETIRAcetam 500 MG TABLET PO SCH ×2 (07:48→19:30)
[2018-12-16] MEDS: METOPROLOL SUCC 24HR ER 50 MG TAB.ER.24H. PO SCH (07:49)
[2018-12-16] MEDS: SERTRALINE 25 MG TABLET. PO SCH (07:49)
[2018-12-16] MEDS: QUEtiapine 25 MG TABLET. PO SCH ×3 (07:49→17:00)
[2018-12-16] MEDS: NICOTINE 14MG PATCH. TD SCH (07:50)
--- NOTE | 2018-12-16 10:12 | NUR ---
Patient was in the dining room during morning rounding, took medications, allowed for morning assessment. Patient was laughing at staff, and in a cheerful mood. No agitation noted, pt denies pain. Said she "slept great." Will continue to monitor.
[2018-12-16 16:08] VITALS: BP 114/72
[2018-12-16] MEDS: MIRTAZAPINE 15 MG TABLET PO SCH (19:28)
[2018-12-16] MEDS: MELATONIN 3 MG TABLET PO SCH (19:28)
[2018-12-16] MEDS: CYPROHEPTADINE 4 MG TABLET. PO SCH (19:28)
[2018-12-16] MEDS: traZODone 50 MG TABLET. PO SCH (19:28)
[2018-12-16] MEDS: ATORVASTATIN CALCIUM 10 MG TABLET. PO SCH (19:29)
--- NOTE | 2018-12-16 21:30 | PDOC ---
Exam Note: Otto Note: Please also refer to the separate dictated note~for this date of service dictated separately.~Patient seen individually. Discussed the patient with Nursing staff reviewed the chart.~Reviewed interim history and current functioning. Reviewed vital signs,~Labs/ Radiology~and current medications noted below. Continue current treatment with the changes noted in the dictated addendum note Assessment: Vital Signs/I&O: Vital Signs Date Time Temp Pulse Resp B/P (MAP) Pulse Ox O2 Delivery O2 Flow Rate FiO2 12/16/18 16:08 97.1 70 18 114/72 (86) 96 12/14/18 06:04 Room Air I & O 12/15/18 12/15/18 12/16/18 14:59 22:59 06:59 Intake Total 840 ml 240 ml 120 ml Balance 840 ml 240 ml 120 ml Current Medications: I have reviewed the current psychotropics carefully including drug interactions. Risk benefit ratio favors no change other than as noted in my dictated progress note. 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
--- NOTE | 2018-12-16 22:32 | OP ---
DATE OF SURGERY: 12/15/2018 This late entry 12/15/2018 covers elements not covered in my initial note. SUBJECTIVE: I met with the patient in the evening. Per nursing report from Dominique, patient slept 5-3/4 hours previous night. She did well until about 4:40 p.m. and then was angry in the day room, received Zyprexa Zydis, did better after that. She has been encouraged to walk to activities per physical therapy staff. REVIEW OF SYSTEMS: Ambulation impaired, in wheelchair. No CV, , pulmonary, eye, ENT system symptoms on review. Reliability poor. MENTAL STATUS EXAM: Oriented to herself. Insight, judgment, recent and remote memory, attention, concentration, fund of knowledge poor, consistent with her diagnosis mentioned in my initial note. PLAN: No change from initial note. MAN Santiago MILLARD MD DR: COURTNEY/raina JOB#: [id number] / [id number]
--- NOTE | 2018-12-16 23:18 | NUR ---
Last evening pt was in day room she was quiet and cooperative, meds taken crushed in pudding. After taking meds pt fell to sleep in chair. HS cares done with minimal resistance from pt.
[2018-12-17 05:46] VITALS: BP 120/69
[2018-12-17] MEDS: NICOTINE 14MG PATCH. TD SCH (07:15)
[2018-12-17] MEDS: levETIRAcetam 500 MG TABLET PO SCH ×2 (07:15→19:46)
[2018-12-17] MEDS: QUEtiapine 25 MG TABLET. PO SCH ×3 (07:16→17:33)
[2018-12-17] MEDS: METOPROLOL SUCC 24HR ER 50 MG TAB.ER.24H. PO SCH (07:17)
[2018-12-17] MEDS: PRAMIPEXOLE 0.5 MG TABLET. PO SCH ×3 (07:17→19:47)
[2018-12-17] MEDS: lamoTRIgine 100 MG TABLET. PO SCH ×2 (07:17→19:46)
[2018-12-17] MEDS: SERTRALINE 25 MG TABLET. PO SCH (07:18)
[2018-12-17] MEDS: ANASTROZOLE 1 MG TABLET PO SCH (07:18)
--- NOTE | 2018-12-17 10:04 | NUR ---
WEEKLY NOTE: Pt is eating 75-100% and sleeping 7 hours on average. She is compliant with her medications and appears to be doing somewhat better. Pt has minimal participation and interact well with peers. Pt will plan to discharge Friday to [place], with a pharmacy picking tech at 1130. No concerns noted.
--- NOTE | 2018-12-17 10:06 | NUR ---
WEEKLY ACTIVITY THERAPY NOTE Date of Admission: 11/20/2018 Date of AT Assessment:11/23/18 Goal aimed:to increase engagement and socialization Initial Goal:Pt. will participate in at least five Activity Therapy groups per week. Weekly progress towards goal: did not achieve, 4/5 Group participation level: minimal Weekly highlights: participated in four groups this week Behaviors observed: sleeping often, walking with PT/OT, distracted and wandering Plan: no change to goal Beneficial adaptations: direct prompting, small groups, more cooperative in the morning
[2018-12-17] MEDS: MAGNESIUM HYDROXIDE 2,400 MG/30 ML ORAL.SUSP. PO PRN (13:06)
[2018-12-17 17:01] VITALS: BP 130/81
--- NOTE | 2018-12-17 18:06 | NUR ---
Patient is in the day room on assumption of care. Pleasant demeanor. Calm, cooperative and compliant with medications and assessments. Took meds crushed in apple sauce. Given Milk of Mag with afternoon meds for a LBM of 12/14. Pending effect. Patient began to get agitated in the day room due to another patient yelling and carrying on. Medicated with PRN Zyprexa Zydis at 1445, with good effect. No other agitation throughout the day, no c/o or s/s of pain or discomfort.
[2018-12-17] MEDS: MELATONIN 3 MG TABLET PO SCH (19:45)
[2018-12-17] MEDS: traZODone 50 MG TABLET. PO SCH (19:46)
[2018-12-17] MEDS: ATORVASTATIN CALCIUM 10 MG TABLET. PO SCH (19:46)
[2018-12-17] MEDS: MIRTAZAPINE 15 MG TABLET PO SCH (19:47)
[2018-12-17] MEDS: CYPROHEPTADINE 4 MG TABLET. PO SCH (19:47)
--- NOTE | 2018-12-17 21:50 | PDOC ---
Exam Note: Otto Note: Please also refer to the separate dictated note~for this date of service dictated separately.~Patient seen individually. Discussed the patient with Nursing staff reviewed the chart.~Reviewed interim history and current functioning. Reviewed vital signs,~Labs/ Radiology~and current medications noted below. Continue current treatment with the changes noted in the dictated addendum note Assessment: Vital Signs/I&O: Vital Signs Date Time Temp Pulse Resp B/P (MAP) Pulse Ox O2 Delivery O2 Flow Rate FiO2 12/17/18 17:01 97.7 54 18 130/81 (97) 99 12/14/18 06:04 Room Air I & O 12/16/18 12/16/18 12/17/18 15:00 23:00 07:00 Intake Total 720 ml 360 ml 60 ml Balance 720 ml 360 ml 60 ml Current Medications: I have reviewed the current psychotropics carefully including drug interactions. Risk benefit ratio favors no change other than as noted in my dictated progress note. 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
--- NOTE | 2018-12-17 23:07 | NUR ---
Nsg Note: Patient was in day room at time of medication administration. Slouched over and mumbling in wheelchair with eyes closed. Patient seemed confused and disoriented. Had to que her and explain what I was doing and she eventually took her medications crushed in pudding. Patient went to sleep about 30 mins after medications administered and was very angry and shouting. PRN Zyprexa was given. Patient has been asleep since she was able to get to bed and no other notable behaviors at this time.
[2018-12-18 06:04] VITALS: BP 147/83
[2018-12-18] MEDS: lamoTRIgine 100 MG TABLET. PO SCH ×2 (07:42→19:23)
[2018-12-18] MEDS: SERTRALINE 25 MG TABLET. PO SCH (07:43)
[2018-12-18] MEDS: PRAMIPEXOLE 0.5 MG TABLET. PO SCH ×3 (07:43→19:23)
[2018-12-18] MEDS: levETIRAcetam 500 MG TABLET PO SCH ×2 (07:43→19:23)
[2018-12-18] MEDS: NICOTINE 14MG PATCH. TD SCH (07:44)
[2018-12-18] MEDS: QUEtiapine 25 MG TABLET. PO SCH ×3 (07:44→17:02)
[2018-12-18] MEDS: METOPROLOL SUCC 24HR ER 50 MG TAB.ER.24H. PO SCH (07:45)
[2018-12-18] MEDS: ANASTROZOLE 1 MG TABLET PO SCH (07:46)
--- NOTE | 2018-12-18 12:18 | NUR ---
Patient was in the dining room during morning rounding, took medications, allowed for morning assessment. Patient was a little restless with medications and getting distracted. Patient took some of medications whole, the rest was crushed and given in pudding. Patient denies pain, said she had a good night last night. No agitation noted, will continue to monitor.
--- NOTE | 2018-12-18 15:26 | NUR ---
[facility] Social Work Discharge Planning Form Patient Name AGUSTO TOSCANO Admit Date: 11/20/18 DISCHARGE PLAN Discharge Destination: Discharge to [facility] Care Assessment: N/A Level II Assessment: N/A Transportation: Pt family has set up transport for pt at 1130. Special Instructions/Notes: Request for pt to receive a PRN to aid in a successful transport and transition to [place]. Please fax all discharge orders and the medication list to the fax number listed below. DISCHARGE TO FACILITY Facility: [facility] Address: [address] [place] [address]; [place] [address] Contact Name: Noemy (Admissions): Contact Name: Please ask for the nurse providing care upon pt admission. PCP: German Casanova --
--- NOTE | 2018-12-18 15:54 | NUR ---
Patient was getting a little anxious and frustrated with redirection, started to yell at staff. PRN ritchie given @6379. Patient is now in the dayroom. Will continue to monitor.
[2018-12-18 16:26] VITALS: BP 104/69
[2018-12-18] MEDS: ATORVASTATIN CALCIUM 10 MG TABLET. PO SCH (19:23)
[2018-12-18] MEDS: CYPROHEPTADINE 4 MG TABLET. PO SCH (19:23)
[2018-12-18] MEDS: MIRTAZAPINE 15 MG TABLET PO SCH (19:23)
[2018-12-18] MEDS: traZODone 50 MG TABLET. PO SCH (19:23)
[2018-12-18] MEDS: MELATONIN 3 MG TABLET PO SCH (19:23)
--- NOTE | 2018-12-18 20:38 | PN ---
DATE: 12/16/2018 PSYCHIATRIC PROGRESS NOTE This late entry 12/16/2018 covers elements not covered in my initial note. SUBJECTIVE: I met with the patient evening of 12/16/2018. Per ION Cullen, the patient slept for 4-3/4 hours previous night. She has had a good day, less anxious, remains confused. REVIEW OF SYSTEMS: Ambulation impaired, in wheelchair. No CV, , pulmonary, eye, ENT system symptoms on review. Reliability poor. MENTAL STATUS EXAM: Oriented to herself. Insight, judgment, recent and remote memory, attention, concentration, fund of knowledge poor, consistent with her diagnosis mentioned in my initial note. PLAN: No change from initial note. MAN Santiago MILLARD MD DR: COURTNEY/raina JOB#: [id number] / [id number]
--- NOTE | 2018-12-18 20:42 | PN ---
DATE: 12/17/2018 PSYCHIATRIC PROGRESS NOTE This late entry 12/17/2018 covers elements not covered in my initial note. SUBJECTIVE: I met with the patient evening of 12/17/2018 and staffed at a treatment team meeting with the entire team in the morning. The patient slept 7 hours previous night. Appetite 50-75%. Reviewed history and placement at [facility]. She is attending groups, more compliant with meds. Mood is better. REVIEW OF SYSTEMS: Ambulation impaired, in wheelchair. No CV, , pulmonary, eye, ENT system symptoms on review. Reliability poor. MENTAL STATUS EXAM: Oriented to herself. Insight, judgment, recent and remote memory, attention, concentration, fund of knowledge poor consistent with her diagnosis mentioned in my initial note. PLAN: No change from initial note. She did receive Zyprexa times one 5 mg which we will give her prior to discharge to help with the transition as requested by the long-term staff. Discharge is planned for Friday12/21/2018. JOE MILLARD MD DR: COURTNEY/raina JOB#: [id number] / [id number]
--- NOTE | 2018-12-18 21:41 | PDOC ---
Exam Note: Otto Note: Please also refer to the separate dictated note~for this date of service dictated separately.~Patient seen individually. Discussed the patient with Nursing staff reviewed the chart.~Reviewed interim history and current functioning. Reviewed vital signs,~Labs/ Radiology~and current medications noted below. Continue current treatment with the changes noted in the dictated addendum note Assessment: Vital Signs/I&O: Vital Signs Date Time Temp Pulse Resp B/P (MAP) Pulse Ox O2 Delivery O2 Flow Rate FiO2 12/18/18 16:26 98.0 56 16 104/69 (81) 96 12/14/18 06:04 Room Air I & O 12/17/18 12/17/18 12/18/18 15:00 23:00 07:00 Intake Total 480 ml 120 ml 120 ml Balance 480 ml 120 ml 120 ml Current Medications: I have reviewed the current psychotropics carefully including drug interactions. Risk benefit ratio favors no change other than as noted in my dictated progress note. 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
--- NOTE | 2018-12-18 22:22 | NUR ---
Patient at shift change was sitting in day room, patient sitting quietly with other patients. Patient took medications whole. No behaviors noted at that time. Patient was screaming with cares. Will continue to monitor.
[2018-12-19 05:55] VITALS: BP 121/70
[2018-12-19] MEDS: PRAMIPEXOLE 0.5 MG TABLET. PO SCH ×3 (07:37→20:17)
[2018-12-19] MEDS: SERTRALINE 25 MG TABLET. PO SCH (07:37)
[2018-12-19] MEDS: lamoTRIgine 100 MG TABLET. PO SCH ×2 (07:37→20:17)
[2018-12-19] MEDS: QUEtiapine 25 MG TABLET. PO SCH ×3 (07:38→17:05)
[2018-12-19] MEDS: METOPROLOL SUCC 24HR ER 50 MG TAB.ER.24H. PO SCH (07:39)
[2018-12-19] MEDS: levETIRAcetam 500 MG TABLET PO SCH ×2 (07:39→20:16)
[2018-12-19] MEDS: ANASTROZOLE 1 MG TABLET PO SCH (07:40)
[2018-12-19] MEDS: NICOTINE 14MG PATCH. TD SCH (07:41)
[2018-12-19] MEDS: CHOLECALCIFEROL (VITAMIN D3) 50,000 UNIT CAPSULE PO SCH (07:43)
[2018-12-19 08:48] LABS: ALBUMIN 3.1 g/dL (3.4-5.0); ALBUMIN/GLOBULIN RATIO 0.7 (1.0-1.7); CALCIUM 9.1 mg/dL (8.5-10.1); CREATININE 0.8 mg/dL (0.6-1.0); GFR 70.1; POTASSIUM 3.8 mmol/L (3.5-5.1); TOTAL BILIRUBIN 0.4 mg/dL (0.2-1.0); TOTAL PROTEIN 7.3 g/dL (6.4-8.2)
[2018-12-19 09:33] LABS: BASO % 1 % (0-3); EOS # 0.2 x10^3/uL (0.0-0.7); EOS % 4 % (0-3); HEMOGLOBIN 14.6 g/dL (12.0-15.5); LYMPH # 1.5 x10^3/uL (1.0-4.8); LYMPH % 28 % (24-48); MEAN CORPUSCULAR HEMOGLOBIN 33 pg (25-35); MEAN CORPUSCULAR HGB CONC 34 g/dL (31-37); MEAN CORPUSCULAR VOLUME 96 fL (79-100); MONO # 0.5 x10^3/uL (0.0-1.1); MONO % 9 % (0-9); NEUT # 3.3 x10^3uL (1.8-7.7); NEUT % 59 % (31-73); PLATELET COUNT 301 x10^3/uL (140-400); RED BLOOD COUNT 4.49 x10^6/uL (3.50-5.40); WHITE BLOOD COUNT 5.5 x10^3/uL (4.0-11.0)
--- NOTE | 2018-12-19 15:16 | NUR ---
Has been calm and happy today. Confused, smiling, compliant and cooperative. Napped in afternoon. Daughter, Sabina phoned to check on her status and verify plan to discharge on Friday.
[2018-12-19 15:47] VITALS: BP 123/58
--- NOTE | 2018-12-19 18:22 | NUR ---
Was woken by staff at 1630 for evening meal and became increasingly agitated and combative. Placed in quiet corona and attempted to give PO meds. She would not tolerate. Delusional, thinks I am Sabina, her daughter. Sliding out of w/. Repositioned, but still agitated and moving to end of seat. Moved to quiet room onto mattress for safety. Was cursing and hitting toward staff. At 1730 gave PRN Zyprexa orally per syringe. She tolerated well. Allowed to remain in quiet room. Offered toileting, fluids, food, to sit in chair, and provided music, as she had stated I just want to sit on the couch with Sabina and listen to the music. At 1830, [facility] staff and moved to dayroom where she was provided her evening meal. Feediing self and no longer yelling out.
[2018-12-19] MEDS: traZODone 50 MG TABLET. PO SCH (20:16)
[2018-12-19] MEDS: MELATONIN 3 MG TABLET PO SCH (20:16)
[2018-12-19] MEDS: ATORVASTATIN CALCIUM 10 MG TABLET. PO SCH (20:17)
[2018-12-19] MEDS: MIRTAZAPINE 15 MG TABLET PO SCH (20:18)
[2018-12-19] MEDS: CYPROHEPTADINE 4 MG TABLET. PO SCH (20:18)
--- NOTE | 2018-12-19 21:55 | PDOC ---
Exam Note: Otto Note: Please also refer to the separate dictated note~for this date of service dictated separately.~Patient seen individually. Discussed the patient with Nursing staff reviewed the chart.~Reviewed interim history and current functioning. Reviewed vital signs,~Labs/ Radiology~and current medications noted below. Continue current treatment with the changes noted in the dictated addendum note Assessment: Vital Signs/I&O: Vital Signs Date Time Temp Pulse Resp B/P (MAP) Pulse Ox O2 Delivery O2 Flow Rate FiO2 12/19/18 15:47 97.3 72 20 123/58 (79) 92 Room Air I & O 12/18/18 12/18/18 12/19/18 15:00 23:00 07:00 Intake Total 480 ml 600 ml Balance 480 ml 600 ml Labs: Laboratory Tests Test 12/19/18 07:50 White Blood Count 5.5 x10^3/uL (4.0-11.0) Red Blood Count 4.49 x10^6/uL (3.50-5.40) Hemoglobin 14.6 g/dL (12.0-15.5) Hematocrit 43.0 % (36.0-47.0) Mean Corpuscular Volume 96 fL (79-100) Mean Corpuscular Hemoglobin 33 pg (25-35) Mean Corpuscular Hemoglobin Concent 34 g/dL (31-37) Red Cell Distribution Width 14.0 % (11.5-14.5) Platelet Count 301 x10^3/uL (140-400) Neutrophils (%) (Auto) 59 % (31-73) Lymphocytes (%) (Auto) 28 % (24-48) Monocytes (%) (Auto) 9 % (0-9) Eosinophils (%) (Auto) 4 % (0-3) H Basophils (%) (Auto) 1 % (0-3) Neutrophils # (Auto) 3.3 x10^3uL (1.8-7.7) Lymphocytes # (Auto) 1.5 x10^3/uL (1.0-4.8) Monocytes # (Auto) 0.5 x10^3/uL (0.0-1.1) Eosinophils # (Auto) 0.2 x10^3/uL (0.0-0.7) Basophils # (Auto) 0.0 x10^3/uL (0.0-0.2) Sodium Level 141 mmol/L (136-145) Potassium Level 3.8 mmol/L (3.5-5.1) Chloride Level 103 mmol/L (98-107) Carbon Dioxide Level 29 mmol/L (21-32) Anion Gap 9 (6-14) Blood Urea Nitrogen 16 mg/dL (7-20) Creatinine 0.8 mg/dL (0.6-1.0) Estimated GFR (Cockcroft-Gault) 70.1 BUN/Creatinine Ratio 20 (6-20) Glucose Level 93 mg/dL (70-99) Calcium Level 9.1 mg/dL (8.5-10.1) Total Bilirubin 0.4 mg/dL (0.2-1.0) Aspartate Amino Transferase (AST) 17 U/L (15-37) Alanine Aminotransferase (ALT) 17 U/L (14-59) Alkaline Phosphatase 113 U/L (46-116) Total Protein 7.3 g/dL (6.4-8.2) Albumin 3.1 g/dL (3.4-5.0) L Albumin/Globulin Ratio 0.7 (1.0-1.7) L Current Medications: I have reviewed the current psychotropics carefully including drug interactions. Risk benefit ratio favors no change other than as noted in my dictated progress note. 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
--- NOTE | 2018-12-19 22:52 | NUR ---
Nsg Note: Patient was in day room at time of medication administration. Patient was calm, cooperative and compliant. She was able to take medications whole. She was slightly confused and needed some queing as she tried to poor the medications into her water cup. Patient went to bed about 30mins after she took medications. No other notable behaviors at this time.
[2018-12-20] MEDS ORDERED: ACET325T9 PO (00:25)
[2018-12-20] MEDS ORDERED: ATOR10TA60 PO (00:26)
[2018-12-20] MEDS ORDERED: CHOL500016 PO (00:27)
[2018-12-20] MEDS ORDERED: CYPR4TAB31 PO (00:28)
[2018-12-20] MEDS ORDERED: MAG30ORA2 PO (00:29)
[2018-12-20] MEDS ORDERED: MELA3TAB56 PO (00:31)
[2018-12-20] MEDS ORDERED: MAGN2400 PO (00:31)
[2018-12-20] MEDS ORDERED: METH99.22 TP (00:33)
[2018-12-20] MEDS ORDERED: MIRT15TA3 PO (00:34)
[2018-12-20] MEDS ORDERED: NICO1PAT25 TD (00:35)
[2018-12-20] MEDS ORDERED: PRAM0.255 PO (00:36)
[2018-12-20] MEDS ORDERED: QUET25TA5 PO (00:36)
[2018-12-20] MEDS ORDERED: SERT100T PO (00:37)
[2018-12-20] MEDS ORDERED: HYDR25TA PO (00:38)
[2018-12-20] MEDS ORDERED: TRAZ-120 PO (00:41)
[2018-12-20 05:58] VITALS: BP 95/77
[2018-12-20] MEDS: lamoTRIgine 100 MG TABLET. PO SCH ×2 (07:27→19:51)
[2018-12-20] MEDS: SERTRALINE 25 MG TABLET. PO SCH (07:27)
[2018-12-20] MEDS: PRAMIPEXOLE 0.5 MG TABLET. PO SCH ×4 (07:28→19:51)
[2018-12-20] MEDS: QUEtiapine 25 MG TABLET. PO SCH ×3 (07:30→17:04)
[2018-12-20] MEDS: METOPROLOL SUCC 24HR ER 50 MG TAB.ER.24H. PO SCH (07:32)
[2018-12-20] MEDS: ANASTROZOLE 1 MG TABLET PO SCH (07:33)
[2018-12-20] MEDS: NICOTINE 14MG PATCH. TD SCH (07:34)
[2018-12-20] MEDS: levETIRAcetam 500 MG TABLET PO SCH ×2 (07:34→19:51)
--- NOTE | 2018-12-20 11:22 | NUR ---
Has been pleasantly confused this a.m. Med compliant, cooperative, no negative outbursts. Awake and alert in dayroom with peers, fed self breakfast.
[2018-12-20 16:25] VITALS: BP 100/64
[2018-12-20] MEDS: ATORVASTATIN CALCIUM 10 MG TABLET. PO SCH (19:50)
[2018-12-20] MEDS: traZODone 50 MG TABLET. PO SCH (19:50)
[2018-12-20] MEDS: MELATONIN 3 MG TABLET PO SCH (19:51)
[2018-12-20] MEDS: MIRTAZAPINE 15 MG TABLET PO SCH (19:51)
[2018-12-20] MEDS: CYPROHEPTADINE 4 MG TABLET. PO SCH (19:51)
--- NOTE | 2018-12-20 22:55 | NUR ---
Elaine Note: Patient pleasantly confused this evening. Took her medications whole. Patient went to bed shortly after medication pass and assessments. No other notable behaviors at this time. Addendum: 12/20/18 at 2319 by LITZY LEWIS RN Patient did have some confusion and tried to pour medications into her water cup. PRN Zyprexa was given. Patient began to get agitated with some of the other patients in the day room and was touching them. After PRN was given, patient then went to bed shortly after. Addendum: 12/21/18 at 0557 by LITZY LEWIS RN Patient was having pain in her back this morning in the day room. Administered PRN Tylenol.
--- NOTE | 2018-12-21 05:02 | PN ---
DATE: 12/20/2018 SUBJECTIVE: The patient was seen today, met with the staff, chart reviewed and also covering for Dr. Day. The patient continues to stay in bed, problems with her gait, is unsteady, fall risk. Also, having extreme mood swings, constantly yelling, confused and also having hand tremors. The patient also had history of falls. The patient apparently is not eating very well. OBSERVATION: VITAL SIGNS: Temperature 97.8, blood pressure 95/77, pulse 68, respiration 18, O2 sat 99%. Slept about 6-1/2 hours last night. CURRENT MEDICATIONS: The patient's current medications include Seroquel 12.5 mg t.i.d., melatonin 3 mg at night, Zoloft 75 mg at night, trazodone 50 mg at night p.r.n., mirtazapine 15 mg at night, Lamictal 200 mg b.i.d., Keppra 500 mg b.i.d. The patient is not having any side effects to medications. LABORATORY DATA: The patient's lab reviewed, no significant change from prior levels. ASSESSMENT: Major neurocognitive disorder, probably secondary to Parkinson's, Lewy body disease. 2. Major depression, single episode. 3. Generalized anxiety disorder. PLAN: Continue with the current treatment plan. ARNOLD OSEI MD DR: ISIDORO/raina JOB#: [id number] / [id number]
[2018-12-21 05:36] VITALS: BP 137/77
[2018-12-21] MEDS: ACETAMINOPHEN 325 MG TABLET PO PRN (05:54)
[2018-12-21] MEDS: QUEtiapine 25 MG TABLET. PO SCH (07:40)
[2018-12-21] MEDS: NICOTINE 14MG PATCH. TD SCH (07:40)
[2018-12-21] MEDS: PRAMIPEXOLE 0.5 MG TABLET. PO SCH (07:41)
[2018-12-21] MEDS: SERTRALINE 25 MG TABLET. PO SCH (07:41)
[2018-12-21 07:42] VITALS: BP 137/77
[2018-12-21] MEDS: levETIRAcetam 500 MG TABLET PO SCH (07:42)
[2018-12-21] MEDS: lamoTRIgine 100 MG TABLET. PO SCH (07:42)
[2018-12-21] MEDS: METOPROLOL SUCC 24HR ER 50 MG TAB.ER.24H. PO SCH (07:42)
[2018-12-21] MEDS: ANASTROZOLE 1 MG TABLET PO SCH (07:45)
--- NOTE | 2018-12-21 12:35 | NUR ---
Tobacco Discharge Note [facility] Tobacco Hotline called with patient prior to discharge, YES Tobacco cessation medication listed with current medications for discharge. YES Transition Record was faxed to follow-up provider with the following elements: Reason for admission, procedures, tests, principal diagnosis, pending studies, patient instructions, 07/10 contact information for unit, phone number to obtain pending test results, plan for follow-up care, physician follow-up, advanced directive information, and medication list with dose, duration and instructions. This information was included in the following documents: History and physical, lab results, study results, progress notes, social work planning form, DC instruction form, patient visit summary, and medication reconciliation form. Date & time record faxed: 12/21/18 @ 00:00 Record faxed to: [facility] [phone] Record discussed with/ report given to: Mckenna LEMON, 12/21/18 at 4445
--- NOTE | 2018-12-21 23:32 | DS ---
DATE OF DISCHARGE: 12/21/2018 FINAL DIAGNOSES: AXIS I: 1. Major neurocognitive disorder, multifactorial, possibly secondary to Parkinson's versus Lewy body. 2. Vascular dementia with depression, delusions and behavioral disturbances. 3. Impulse control disorder, unspecified. 4. Anxiety disorder, unspecified. AXIS II: None. AXIS III: Parkinson's disease, chronic obstructive pulmonary disease, seizure disorder, hyperlipidemia, hypertension, history of carcinoma of breast, history of subdural hematoma and arthritis. REASON FOR ADMISSION: This 73-year-old female who was [facility] from [facility] and referred by Dr. Casanova, her primary care physician because of significant decline in her cognitive functioning, being restless and also having visual and auditory hallucinations. The patient also was not sleeping and also, the patient was talking to imaginary figures and increased confusion. The patient apparently failed outpatient psychiatric interventions. HISTORY OF PRESENT ILLNESS: The patient has a long history of dementia, most likely secondary to Parkinson's versus Lewy body disease. The patient has been a resident at [place] [facility] for some time as she is in the process of being transitioned to assisted living. The patient initially went to [facility] where she was evaluated and was medically stable for inpatient psychiatric hospitalization. Her daughter is the power of privacy attorney. The patient is apparently having multiple physical problems including her Parkinson's disease, seizure disorder, and also history of subdural hematoma. HOSPITAL COURSE: The patient had a physical exam, routine lab work including CBC, chem profile and urinalysis. The patient's platelet count initially was 436 on admission, otherwise, there is no major abnormalities. The patient's glucose was slightly elevated, BUN fluctuated from 16 to 27. The patient's alkaline phosphatase was elevated at the time of admission, returned to normal. The patient's urinalysis was within normal range. The patient was involved in the program including individual therapy, group therapy, activity therapy. The patient did participate in most of the activities. The patient did not have any falls during her stay here. The patient's medications included Seroquel 12.5 mg 3 times a day, melatonin 3 mg at night, Zoloft 75 mg at night, trazodone 50 mg at night p.r.n., mirtazapine 15 mg at night, and Lamictal 200 mg b.i.d. p.o. The patient was also on Keppra 500 mg b.i.d. for her seizure disorder. The patient did not present with any major side effects from the medications. The patient progressed fairly well. The patient did not have any major episodes of confusion, still having cognitive deficits of high level of anxiety, but overall her behavior has improved. AFTERCARE PLAN: The patient at the time of discharge was medically stable. Her behavior has improved. The patient's speech was clear, monotone, decreased rate and rhythm. Her affect and mood showed she is exhibiting some emotional lability, irritability at times, but no overt psychotic symptoms. The patient continues to show increased confusion and memory difficulties and she is difficult to redirect at times. The patient was oriented to surroundings. The patient's memory is impaired for both past and present. The patient's judgment impaired. Recommendation is for her to return to [facility] and also continue follow up with the psychiatrist and staff and with the primary care doctor. Continue with the above medications. ARNOLD OSEI MD DR: ISIDORO/raina JOB#: [id number] / [id number]
--- NOTE | 2018-12-23 01:01 | PN ---
DATE: 12/18/2018 PSYCHIATRIC PROGRESS NOTE This late entry, 12/18, covers elements not covered in my initial note. SUBJECTIVE: I met with the patient evening of 12/18. Per Alyse RN, patient slept 5-3/4 hours previous night and had a good day. She got a little agitated in the afternoon, received Zyprexa at 3:47 p.m., was frustrated post-toileting. REVIEW OF SYSTEMS: Ambulation impaired, in wheelchair. No CV, , pulmonary, eye, ENT system symptoms on review. Reliability poor. MENTAL STATUS EXAM: Oriented to herself. Insight, judgment, recent and remote memory, attention, concentration, fund of knowledge poor, consistent with her diagnosis mentioned in my initial note. PLAN: No change from initial note. MAN Santiago MILLARD MD DR: COURTNEY/raina JOB#: [id number] / [id number]
--- NOTE | 2018-12-23 01:43 | PN ---
DATE: 12/19/2018 PSYCHIATRIC PROGRESS NOTE This late entry, 12/19, covers the elements not covered in my initial note. SUBJECTIVE: I met with the patient in the morning of 12/19. According to ION Blair, the patient did well at night and in the morning, slept 6-3/4 hours, takes meds crushed and hidden in food. REVIEW OF SYSTEMS: Ambulation impaired, in wheelchair. No CV, , pulmonary, eye, ENT systems symptoms on review. MENTAL STATUS EXAM: Oriented to herself. Insight, judgment, recent and remote memory, attention, concentration, fund of knowledge poor, consistent with her diagnosis mentioned in my initial note. PLAN: No change from initial note. Dr. Campa will cover for me on 12/20 and 12/21. MAN Santiago MILLARD MD DR: COURTNEY/raina JOB#: [id number] / [id number]
== END 2018-12-21 11:45 | DRG 57 ==
LOC: GEROPSY 08:28
PROVIDERS: ADMIT Psychiatry & Neurology Psychiatry; ATTEND Psychiatry & Neurology Psychiatry
DX: G20 Parkinson's disease (principal); F05 Delirium due to known physiological condition; F02.81 Dementia in other diseases classified elsewhere, unspecified severity, with behavioral disturbance; T78.2XXA Anaphylactic shock, unspecified, initial encounter; F01.50 Vascular dementia, unspecified severity, without behavioral disturbance, psychotic disturbance, mood disturbance, and anxiety; F63.9 Impulse disorder, unspecified; F32.9 Major depressive disorder, single episode, unspecified; G30.9 Alzheimer's disease, unspecified; F41.9 Anxiety disorder, unspecified; G47.00 Insomnia, unspecified; E78.00 Pure hypercholesterolemia, unspecified; E78.5 Hyperlipidemia, unspecified; F17.210 Nicotine dependence, cigarettes, uncomplicated; R26.9 Unspecified abnormalities of gait and mobility; G40.909 Epilepsy, unspecified, not intractable, without status epilepticus; F41.1 Generalized anxiety disorder; J44.9 Chronic obstructive pulmonary disease, unspecified; R29.6 Repeated falls; W06.XXXA Fall from bed, initial encounter; I10 Essential (primary) hypertension; I45.10 Unspecified right bundle-branch block; E55.9 Vitamin D deficiency, unspecified; M15.9 Polyosteoarthritis, unspecified; Z91.81 History of falling; Z85.3 Personal history of malignant neoplasm of breast; Z79.899 Other long term (current) drug therapy; Z90.49 Acquired absence of other specified parts of digestive tract; Z98.891 History of uterine scar from previous surgery; Z88.8 Allergy status to other drugs, medicaments and biological substances
CPT/HCPCS: 36415; 70450; 80053; 80061; 81001; 82306; 83036; 83540; 83550; 83735; 84436; 84443; 84480; 85025; 86592; 87086; 90471; 90686; 93005; 99406; 97110; 97116; 97530; 97535